=== PATIENT | male | born 1945 | race Caucasian/White ===

== ENCOUNTER 2017-10-03 15:14 | Inpatient (IN) | payer MEDICARE, MEDICAID, SELFPAY ==
--- NOTE | 2017-10-03 14:58 | PHARADMIT ---
Addendum entered by Manjit Kim III 11/06/17 11:17: VS-OK No changes CM note that patient is set to be discharged on Friday. Original Note: Addendum entered by Manjit Kim III 11/05/17 08:53: Having jailhome specialist today. VS-OK FSBS- 120 No Changes Plan is for discharge to jail if he agrees to do stairs Original Note: Addendum entered by Edilma Martinez 11/04/17 15:23: VS ok, FSBS 94 No med changes today, ambulating discharge planned to adult jail in the next 1-2 weeks dependent on renovations, meeting at the end of the week w/coordinator of this home Original Note: Addendum entered by Vane Austin 11/03/17 10:17: HR-55 other VS-okay FSBG-113 no med changes waiting to go to jail Original Note: Addendum entered by Manjit Kim III 11/02/17 09:57: vs-ok fsbs-101 nO CHANGES Original Note: Addendum entered by Manjit Kim III 11/01/17 10:35: VS-OK FSBS-100 Last 10/29 No Chnages Original Note: Addendum entered by Manjit Kim III 10/31/17 10:44: BP-up 153/85 FSBS-121 Patient has been accepted at [facility] home in 2 weeks, (renovating) Original Note: Addendum entered by Vane Austin 10/30/17 10:53: VS-okay FSBG-126 no med changes Original Note: Addendum entered by Manjit Kim III 10/29/17 12:15: VS-OK no change Original Note: Addendum entered by Manjit Kim III 10/28/17 11:27: VS-OK FSBS-129 CM working towards future discharge. Original Note: Addendum entered by Manjit Kim III 10/24/17 09:33: VS-OK No Labs, no med changes Awaiting approval of [facility]. Possible discharge on Friday Original Note: Addendum entered by Edilma Martinez 10/23/17 16:59: Visit with home in [place] went well, awaiting feedback from facility Kinta level 0.48 which is desirable according to for his age Anticipate discharge soon Original Note: Addendum entered by Makenzie Elizondo 10/22/17 15:33: Nothing new per report plan for visit today to adult home care facility from 10-3 Original Note: Addendum entered by Manjit Kim III 10/21/17 10:41: Pharmacy Note Subjective [facility] here today to meet with Patient. CM working towarad discharge. Objective VS-OK no labs Last BM recorded 10/17 Assessment On Kinta (0.43 last level 10/13) Plan ok with Kinta level slightly below therapeutic before discharge as patient tends to get toxic quickly Original Note: Addendum entered by Manjit Kim III 10/20/17 10:05: Pharmacy Note Subjective Better behavior over night. Objective VS-OK No Labs FSBS-138 Assessment No changes Plan No new notes Original Note: Addendum entered by Edilma Martinez 10/19/17 14:32: Pharmacy Note Subjective usually difficult behavior on the 3-11 shift Objective VS ok, FSBS 131 Assessment appropriate this morning no med changes Plan Private home interview this coming week for placement Original Note: Addendum entered by Manjit Kim III 10/17/17 12:26: Pharmacy Note Subjective Patient refused medications last night. Objective VS-OK FSBS-126 Had BM Assessment MD/provider to address medication refusal issue Plan CM working on placement Original Note: Addendum entered by Manjit Kim III 10/16/17 12:03: Pharmacy Note Subjective Patient to go to [facility]vt home [facility] on Friday next week. Objective VS-OK FSBS-139 No Labs Assessment No changes Plan Possible discharge late next week pending outcome of pvt home visit Original Note: Addendum entered by Manjit Kim III 10/15/17 11:39: Pharmacy Note Subjective Patient expressed rude behavior towards staff, addresses by CM, patient has apologized. Psych consult completed Objective VS-OK no labs Reg BMs Assessment Kinta continues, Plan CM working on placement Original Note: Addendum entered by Vane Austin 10/14/17 10:31: Pharmacy Note Subjective Objective VS-okay lithium-0.43 BUN-40 BG-143 SCr-1.26 Assessment lithium trough considered subtherapeutic, but MD okay with this level given the pt's age and issues with toxicity in the past Plan continue current lithium dose, increase lamotrigine from 25 mg to 50 mg daily on 10/18/17 Original Note: Addendum entered by Makenzie Elizondo 10/13/17 11:22: Pharmacy Note Subjective pt broke bed last night Objective vs ok, Assessment lithium level so far has not been reordered Plan nursing may ask for another psychiatric consultation Original Note: Addendum entered by Vane Austin 10/12/17 08:41: no VS or labs this morning day 2 out of 5 of fluconazole lithium level was cancelled. will check to see if MD wants to reorder (if pt willing to have labs drawn as he has been refusing) Monitor EKG changes when possible Original Note: Addendum entered by Edilma Martinez 10/11/17 14:40: Pharmacy Note Subjective Objective VS good, labs pending ?!? QTC this mornin Assessment Fluconazole 150mg added daily X 5 DAYS for very severe open and bleeding fungal infection that cream and powder have not helped alleviate There is potential for QTC interval prolongation with this added med, aware (Kinta) Plan Kinta level pending, ? not sure lab was able to get a blood draw Monitor EKG changes when possible Original Note: Addendum entered by Vane Austin 10/10/17 09:39: Pharmacy Note Subjective pt met with a potential adult family this week per CM note Objective VS-okay, pt refused labs this morning Assessment MD wanted lithium level after 6th dose (which is tomorrow morning) so level is scheduled for 0730 quetiapine discontinued ekg done on 10/07/17, QTc 474 (down from 08/08/17) Plan watch for lithium level tomorrow morning Original Note: Addendum entered by Makenize Elizondo 10/09/17 16:44: Pharmacy Note Subjective swingbed for altered mental status Objective vs ok, FS 138 Assessment Kinta started, mulvit and folic acid started Plan lithium trough level to be ordered after 5 days of therapy, psychiatrist stated may be well maintained on subtherapeutic levels If he stays [facility], watch for Lamictal dose increase MD mentions repeating EKG (last one was 08/08/17) Original Note: Addendum entered by Edilma Martinez 10/07/17 16:29: Pharmacy Note Subjective RN reports vomiting overnight Objective VS ok, no labs Assessment Glipizide dc'd and changing to Januvia 50mg daily (reduced dose for borderline CrCl~50ml/min) Seroquel changed from Qam to QHS Lamictal titration upwards is a slow process (every 2 weeks adjustments-started 10/04/17) will do some research about his Psychiatric background and IF Kinta is the only medication that helped him in the past, he may need to go back on it, regardless of QTc interval Sinemet was started 10/05/17 in the evening, watch for signs of improvement 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, watch for Lamictal dose increase MD mentions repeating EKG (last one was 08/08/17) Original Note: Addendum entered by Edilma Martinez 10/05/17 14:25: Pharmacy Note Subjective Ambulates independently w/walker, is Swingbed patient Objective VS good, FSBS 157,116 Micro: MRSA negative Assessment MD was giving Lamictal a few days to take effect before starting any new meds Plan MD mentions starting Sinemet as recommended by Neurology, no new med orders at this time Placement options being researched Original Note: Pharmacy Note Subjective SWINGBED TRANSFER 10/03/17 Objective Last QTC was 510 on 08/08/17, VS ok, no labs, FSBS 135,159 Assessment Addition of Lamictal starting tomorrow in place of Kinta with history of elevated QTC No insulin changes Neurology consult: ruled out any hydrocephalus diagnosis, mostly memory impairment associated with possible Alzheimer's dementia and some Parkinsonian features with some suggestions of possible new meds (ie: Sinemet) to help w/gait, History of bipolar as well Plan Search for new alf facility Admission Pharmacy Clinical Review altered mental status, weakness Code Status Full Code Current Weight 129.8 kg Renally Cleared and Narrow Therapeutic Index Meds Crcl ~51.00 mL/min current meds okay QTc Value / Action Taken QTc 510 pt has quetiapine and solifenacin ordered; has lithium listed as home med but not currently ordered BP Control, Fever BP 141/85 afebrile Electrolytes reviewed within normal limits DVT Prophylaxis none Opiate Usage / Scheduled Bowel Regimen Ordered no/prn Plt/SCr for Heparin / Enoxaparin plt 234 SCr 1.37 INR for Warfarin n/a H/H stable, WBC/Bands h/h 14.0/45.2 wbc 11.49 Antibiotic appropriateness n/a Cultures and Sensitivities MRSA screen pending Surgical ABX d/c within 24 hr n/a DM control / Insulin Dosing BG 146 sliding scale insulin aspart Heart Failure (Check EF%) (TADEO's, B-Block, Diuretics) furosemide (home med), metolprolol IV to PO Switch n/a Home Meds Reviewed -quetiapine and solifenacin may enhance the ulcerogenic effects of potassium chloride (recommended to avoid use of solid oral potassium with anticholinergic drugs) -multiple QTc prolonging drugs: quetiapine, lithium, solifenacin Home Meds Not Ordered cholecalciferol, furosemide, lithium, potassium chloride Comments
[2017-10-03 15:38] VITALS: BP 125/80; PULSE 74; RESP 18; TEMP 36; O2SAT 97
--- NOTE | 2017-10-03 15:47 | IESE_ITS ---
Date: 10/03/17 Referring Doctor: Torin Arriaga PT Orders: PT Consult: Precautions: Fall Precautions PATIENT PROFILE/ADMITTING DIAGNOSIS: Pt is a 72yr old male admitted with generalized weakness, gait instability and urinary incontinence, transferred to SWING bed program for rehab PMHX: Schizophrenia, Bipolar Disorder, right basal ganglia lacunar infarct, chronic kidney disease, diabetes mellitus type II, obesity, chronic obstructive pulmonary disease, peripheral vascular disease, osteoarthritis, hypertension, prostate cancer Social History/Home Situation: Lives in a a private jail with Haylie Arana , 1 step to enter. Per chart caregiver states she can no longer care for him at home. Per patient his baseline mobility is independent transfers and gait with 4WW, independent with ADLS. Equipment owned/DME: 4WW SUBJECTIVE: Pt falling asleep in chair, agreeable to mobilize. OBJECTIVE: Mental Status: A& O to name, place, situation Pain: no c/o pain ROM: RUE: AROM shoulder flexion to 90, elbow and wrist WNL LUE AROM shoulder flexion to 90, elbow and wrist WNL RLE AROM hip flexion to 110, knee and ankle WNL LLE AROM hip flexion to 110, knee and ankle WNL STRENGTH: RUE: shoulder flexion 2/5, bicep 4/5, framing mill operator helper 5/5 LUE shoulder flexion 2/5, bicep 4/5, framing mill operator helper 5/5 RLE hip flexion 3/5, quad 4/5 DF/PF 5/5 LLE hip flexion 3/5, quad 4/5 DF/PF 5/5 BED MOBILITY/TRANSFERS: Sit-stand: SBA with FWW, cues to sequence chair-beD: SBA with FWW Stand-sit: SBA Sit-supine: HOB flat, SBA GAIT: CGA with FWW 20ftx2. Pt too tired to progress gait this afternoon. BALANCE: Static sitting: normal Dynamic Sitting: normal Static Standing: fair Dynamic Standing: fair SPECIAL TESTS: Mobility Limitations Standardized Measure [facility] AM -PAC 6 clicks Basic Mobility Inpatient Short Form: raw score: 18 standardized score: 43.63 CMS score: 46.58% CMS modifier: CK INFORMED CONSENT/EDUCATION: Pt instructed in purpose of PT Consult and plan of care ASSESSMENT: Pt is a 72yr old male admitted with generalized weakness, gait instability and urinary incontinence in setting of Schizophrenia, Bipolar Disorder, right basal ganglia lacunar infarct, chronic kidney disease, diabetes mellitus type II, obesity, chronic obstructive pulmonary disease, peripheral vascular disease, osteoarthritis. Patient presents with the following impairment level findings: decreased strength with transfers, decreased strength and balance with gait mobility, decreased static and dynamic standing balance putting him at risk for falls. Pt was able to follow all instructions and actively participate in therapy session. Anticipate he will need a intermediate care facility or [facility] supervision at discharge.. Impairments are contributing to the following functional limitations: AMPAC score CMS score: 46.58% Patient is assessed as a * high 29110 complexity based on the following: History: generalized weakness, gait instability and urinary incontinence in setting of Schizophrenia, Bipolar Disorder, right basal ganglia lacunar infarct , chronic kidney disease, diabetes mellitus type II, obesity, chronic obstructive pulmonary disease, peripheral vascular disease, osteoarthritis. Examination: decreased strength with transfers, decreased strength and balance with gait mobility, decreased static and dynamic standing balance putting him at risk for falls. Presentation: evolving Decision Making: AMPAC score CMS score: 46.58% GOALS Goals x1 week 1. Supine-sit: HOB flat, independent 2. Sit-Supine HOB flat, independent 3. Sit-Stand: SBA with FWW 4. Stand-sit: supervision 5. Bed-chair supervision with FWW 6. Chair-bed supervision with FWW 7. Gait: SBA with FWW 150ft 8. Stairs: up/down 2 steps with railing SBA PLAN OF CARE/TREATMENT PLAN: 1-2x/day, 7 days/ week x 1 week Plan of care has been reviewed with the PARTITION NOTCHER providing the service under Physical therapy direction. Initiate physical therapy intervention for strengthening, bed mobility, transfers, gait, stairs, balance training, use of assistive device. DISCHARGE RECOMMENDATIONS [facility] facility vs. return to home with caregiver TREATMENT TIME/MINUTES/CODES 24 IE 1530 Evelyn Dey PT
--- NOTE | 2017-10-03 15:58 | NUR.NOTE ---
Admission to swing bed from acute status. Nursing Note:
[2017-10-03 20:08] VITALS: BP 152/90; PULSE 74; RESP 74; TEMP 36.6; O2SAT 97
[2017-10-03] MEDS: Metoprolol 25 MG TAB PO (21:00)
[2017-10-03] MEDS: Nystatin CREAM 15 GM TUBE TP (21:01)
[2017-10-03] MEDS: Melatonin 3 MG TAB 6 MG PO (21:27)
[2017-10-03] MEDS: Simvastatin 20 MG TAB PO (21:27)
[2017-10-04 00:50] VITALS: BP 124/66; PULSE 66; RESP 18; TEMP 37.1; O2SAT 97
[2017-10-04 06:50] VITALS: BP 135/76; PULSE 73; RESP 20; TEMP 36.7; O2SAT 100
--- NOTE | 2017-10-04 07:21 | PDOC.CMPRO ---
Date of Service: 10/04/17 Time of Service: 07:21 Care Management Progress Note Care Management Progress Note S/O: Pritesh is in the room and active today. He met with his CC yesterday and reviewed options for placement. [facility] is currently looking for adult care bed. A:72 year old male admitted for AMS and weakness plan to transition to SB1 on 10/03/2017 P:CM to continue Coordination with Sal[facility]ers Water Plant Pump Operator Supervisor cell number [phone] Office is [phone]. She is actively looking for adult care bed. CM will continue to coordinate services with CC toward discharge and disposition.
[2017-10-04] MEDS: Senna TAB 1 TAB PO (09:27)
[2017-10-04] MEDS: Metoprolol 25 MG TAB PO ×2 (09:27→19:37)
[2017-10-04] MEDS: QUEtiapine 25 MG TAB PO (09:28)
[2017-10-04] MEDS: Nystatin CREAM 15 GM TUBE TP ×2 (09:29→19:37)
[2017-10-04] MEDS: Aspirin E.C. 81 MG TABEC PO (09:29)
[2017-10-04] MEDS: lamoTRIgine 25 MG TAB PO (09:29)
--- NOTE | 2017-10-04 11:51 | HPE_ITS ---
Discharge from Observation: October 01, 2017 Admission to Swing: October 03, 2017 Chief Complaint: Change in mental status. Plan: His chronic kidney disease will be monitored with intermittent lab work. He will be continued on physical therapy and occupational therapy to assess and meet his needs. For now, he is being transitioned to Swing Bed status. History of Present Illness: This is a 72-year-old man with a past medical history significant for dementia and bipolar disorder, as well as diabetes and COPD. He presented to [facility] for evaluation of the above chief complaints. Mr. West lives in a private-snf with his caregiver, Haylie Arana, who brought him to the Emergency Dept. for evaluation per recommendation from his primary care office. Initial complaints were for increased weakness and poor ambulation with frequent falls, frequent urinary incontinence, and worsening behavioral changes, with frequent outbursts of anger and uncontrollable behavior. Mr. West also has a porter sample case who is currently attempting to find alternative living arrangements for him as he is no longer able to be cared for at home, according to his caregiver. The patient was admitted to the hospital and monitored without any significant events or occurrences. Given the fact that he was noted to have possible ventriculomegaly on the read of his brain CT, Neurology was consulted to evaluate for the possibility of normal-pressure hydrocephalus. It was deemed that the patient did not have enough evidence by imaging for normal-pressure hydrocephalus. The recommendation was for checking his B12 and TSH, in addition to the rest of his lab work already checked. There was also concern regarding some Parkinsonian features on examination, with mild bradykinesia and a shuffling gait, along with a resting upper-extremity tremor. The recommendation was also for possible consideration of a trial of Sinemet. Other differentials were also considered for the patient's change in mental status, including infectious process, which was less likely given his normal urinalysis, chest x-ray, and lack of fever, although with a mild leukocytosis. The patient is diabetic, but his blood sugar did not seem to be grossly elevated. He was not noted to be hypoxic, and did not seem to have any pulmonary signs or symptoms on imaging or clinically, and he did not appear to be uremic by labs. He was mildly dehydrated, but this was not an overtly strong indication for his change in mental status. He also is on psychiatric medications, but has been on these chronically. He is also without evidence of CVA by CT of the head, or evidence of a space-occupying lesion within the brain by the same imaging. The patient's TSH and B12 are pending at this time. NPH was ruled out by Neurology, as well. Will consider the addition of Sinemet and re-evaluate the patient. As far as Mr. West's bipolar disorder, his [place] was discontinued as he has a history of [place] toxicity. His levels came back normal, but, at the time of reinitiation, it was noted that he had a prolonged QT. For the time-being, Lamictal is being initiated and needs to be up-titrated. Past Medical History: 1. Hypertension. 2. COPD. 3. Dementia. 4. Bipolar disorder. 5. Schizophrenia. 6. Osteoarthritis. 7. Prostate cancer. 8. Diabetes. Medications: 1. Albuterol 2.5mg q2h prn. 2. Acetaminophen 650mg q6h prn. 3. MiraLax 17 grams daily prn. 4. Bisacodyl 10mg daily prn. 5. Eucerin cream. 6. Glycerin suppositories prn. 7. Phosphate enema prn. 8. Nystatin cream prn. 9. Metoprolol 25mg BID. 10. Melatonin 6mg qHS. 11. Zocor 20mg qHS. 12. Glipizide 2.5mg daily. 13. Vitamin D. 14. Lamotrigine 25mg daily. 15. Aspirin 81mg daily. 16. Senna, one tablet daily. 17. Seroquel 25mg daily. Allergies: DILTIAZEM. TETANUS TOXOID. Laboratory Data: WBC 11.49. H/H normal. 75 segs, 13 lymphocytes, 8 monocytes on differential. Sodium 132. Potassium 3.9. Chloride 107. Bicarb 28.9. BUN 37, creatinine 1.37. Glucose 146. Liver function tests were normal at the time of admission, as were albumin and total protein. Troponin was checked and undetectable at less than 0.02. [place] level was checked and well within normal limits at 0.74. Urinalysis was checked and negative for infection or blood. Studies: 1. Chest x-ray on 10/01/2017: No acute abnormalities. 2. Head CT on 10/01/2017: Old bilateral basal ganglia lacunar infarct; no acute abnormalities seen. cc: Padmini Galindo SYSTEMS ARCHITECTURE ANALYST
--- NOTE | 2017-10-04 12:28 | INPTTR_ITS ---
PHYSICAL THERAPY PROGRESS NOTE Date:10/04/17 PRECAUTIONS:Fall Precaution SUBJECTIVE: Pt.in good spirits and agreeable to treatment. BED MOBILITY/TRANSFERS Rolling L/R: HOB 28 degrees supervision Supine-sit: HOB flat supervision Sit-stand: Supervision Stand-sit: SBA GAIT Assistive Device FWW Weightbearing FWB Assist: CGA Distance: 100'x1 Deviation No LOB/SOB THEREX: please refer to chart ASSESSMENT: Pt. is showing increase in strenght and stability with gait. PLAN: Continue with PT POC. TREATMENT CODES/TIME: 30mins TAx1, TPx1 11:55
[2017-10-04 15:30] VITALS: BP 115/67; PULSE 71; RESP 22; TEMP 36.7; O2SAT 95
[2017-10-04 19:31] VITALS: BP 117/73; PULSE 76; RESP 16; TEMP 36.2; O2SAT 97
[2017-10-04] MEDS: Simvastatin 20 MG TAB PO (21:27)
[2017-10-04] MEDS: Melatonin 3 MG TAB 6 MG PO (21:27)
[2017-10-04 23:35] VITALS: BP 131/80; PULSE 62; RESP 17; TEMP 36.2; O2SAT 97
[2017-10-05 07:35] VITALS: BP 124/59; PULSE 64; RESP 18; TEMP 35.9; O2SAT 94
[2017-10-05] MEDS: Aspirin E.C. 81 MG TABEC PO (07:48)
[2017-10-05] MEDS: Metoprolol 25 MG TAB PO ×2 (07:48→20:49)
[2017-10-05] MEDS: lamoTRIgine 25 MG TAB PO (07:48)
[2017-10-05] MEDS: QUEtiapine 25 MG TAB PO (07:48)
[2017-10-05] MEDS: Nystatin CREAM 15 GM TUBE TP (07:49)
--- NOTE | 2017-10-05 11:51 | INPTTR_ITS ---
PHYSICAL THERAPY PROGRESS NOTE Date: 10/05/17 SUBJECTIVE: Pritesh reports that he is ready to walk. OBJECTIVE BED MOBILITY/TRANSFERS Sit-stand: SBA Stand-sit: SBA GAIT Assistive Device FWW Weightbearing full Assist: CGA Distance: 120' THEREX: global LE strengthening. See flowsheet for details. ASSESSMENT: tolerated session well. Had a hard time staying focused during session. Cues required to redirect him. PLAN: continue to progress his strength and endurance following PT POC. TREATMENT CODES/TIME: 18 min. TAx1.
[2017-10-05 15:20] VITALS: BP 135/83; PULSE 68; RESP 22; TEMP 37; O2SAT 97
[2017-10-05 18:04] LABS: TSH 0.33 uIU/mL (0.358-3.74); Vitamin B12 541 pg/mL (193-986)
[2017-10-05] MEDS: Simvastatin 20 MG TAB PO (20:49)
[2017-10-05] MEDS: Melatonin 3 MG TAB 6 MG PO (20:49)
[2017-10-05] MEDS: Carbidopa 25/Levodopa 100 TAB PO (20:49)
[2017-10-05 21:12] VITALS: BP 141/69; PULSE 65; RESP 17; TEMP 36.7; O2SAT 96
[2017-10-06 04:24] VITALS: BP 121/70; PULSE 61; RESP 20; TEMP 35.5; O2SAT 97
--- NOTE | 2017-10-06 06:00 | NUR.NOTE ---
Nursing Note: behaviour assessment 11pm-7am--pt has slept most of night ,woke up once and was encouraged to walk to bathroom and voided in toilet ,pt wears brief and has been continenet this shift. Pt's behaviour has been appropriate towards staff.
[2017-10-06 07:05] VITALS: BP 162/73; PULSE 60; RESP 18; TEMP 35.9; O2SAT 93
[2017-10-06] MEDS: Metoprolol 25 MG TAB PO ×2 (08:40→20:57)
[2017-10-06] MEDS: Senna TAB 1 TAB PO (08:40)
[2017-10-06] MEDS: Aspirin E.C. 81 MG TABEC PO (08:40)
[2017-10-06] MEDS: Carbidopa 25/Levodopa 100 TAB PO ×2 (08:41→20:57)
[2017-10-06] MEDS: QUEtiapine 25 MG TAB PO (08:41)
[2017-10-06] MEDS: lamoTRIgine 25 MG TAB PO (08:41)
--- NOTE | 2017-10-06 11:38 | OTSE_ITS ---
INPATIENT OCCUPATIONAL THERAPY EVALUATION Date: 10/06/17 Referring Doctor: Torin Arriaga OT Orders: OT Consult: Precautions: Fall Precautions PATIENT PROFILE/ADMITTING DIAGNOSIS: Pt is a 72yr old male admitted with generalized weakness, gait instability and urinary incontinence, transferred to SWING bed program for rehab PMHX: Schizophrenia, Bipolar Disorder, right basal ganglia lacunar infarct, chronic kidney disease, diabetes mellitus type II, obesity, chronic obstructive pulmonary disease, peripheral vascular disease, osteoarthritis, hypertension and prostate cancer Social History/Home Situation: Lives in a a private senior care with Haylie Arana , 1 step to enter. Per chart caregiver states she can no longer care for him at home. Per patient his baseline mobility is independent transfers and gait with 4WW, independent with ADLS. Equipment owned/DME: 4WW SUBJECTIVE: Pt awake and agreeable. OBJECTIVE: Mental Status: A& O to name, place. Pain: no c/o pain ROM: RUE: AROM shoulder flexion to 100, elbow and wrist WNL LUE AROM shoulder flexion to 110, elbow and wrist WNL STRENGTH: RUE: shoulder flexion 3/5, bicep 4/5, consulting practice director 5/5 LUE shoulder flexion 3/5, bicep 4/5, consulting practice director 5/5 FUNCTIONAL MOBILITY/ADLS: Transfers Sit-Stand S Stand-sit S Functional mobility: SBA 2 X 75 feet with FWW. BATHING Seated/ standing in shower. Bathing UE S with v/cs for thoroughness. Bathing LE SBA to stand. v/cs for thoroughness. DRESSING Dressing UE I post setup. Dressing LE S to stand to pull pants over hips. TOILETING SBa transfer. S to stand for management. EATING I BALANCE: Static sitting N Dynamic Sitting N Static Standing F Dynamic Standing F SPECIAL TESTS: Daily Activity Limitations Standardized Measure [facility] AM -PAC 6 clicks Daily Activity Inpatient Short Form: Raw score: 20 standardized score: 42.03 CMS score: 38.32% [facility] modifier: CJ INFORMED CONSENT/EDUCATION: Pt instructed in purpose of OT Consult and plan of care. ASSESSMENT: Patient is a 72 -year-old male, referred to occupational therapy services with diagnosis of generalized weakness, gait instability and urinary incontinence, . Patient presents with clinical signs and symptoms consistent with diagnosis, as demonstrated by the following impairment level findings: Weakness, decreased standing balance and decreased tolerance to activity. Impairments are contributing to the following functional limitations: Decreased I with ADLS and functional mobility. AMPAC score 20 . Patient is assessed as a Low 97161___x__ Moderate 97162 high 97163 complexity based on the following: History: Generalized weakness, gait instability and urinarySchizophrenia, Bipolar Disorder, right basal ganglia lacunar infarct, chronic kidney disease, diabetes mellitus type II, obesity, chronic obstructive pulmonary disease, peripheral vascular disease, osteoarthritis, hypertension and prostate cancer Examination: See sona. Presentation: evolving Decision Making: ampace 20 GOALS Goals x1 week 1. Transfers I in hospital setting for adls. 2. Dressing I in hospital setting. 3. Bathing S with v/cs for thoroughness only. 4. Toileting I in hospital setting. PLAN OF CARE/TREATMENT PLAN: 1x/day,3- 5 days/ week x 1week Initiate Occupational Therapy Services for bathing, dressing, grooming, toileting, transfer training. DISCHARGE RECOMMENDATIONS LTC rehab. TREATMENT TIME/MINUTES/CODES 60 mins 1 IE 2 sct G Codes in the area of self- : washing oneself, toileting, dressing, eating and drinking, current status [id number] projected status GP [id number] . Discharge status (if discharging) GP [id number]
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
--- NOTE | 2017-10-06 15:17 | INPTTR_ITS ---
PHYSICAL THERAPY PROGRESS NOTE Date: 10/06/17 PRECAUTIONS: Fall Precautions SUBJECTIVE: Pt sleeping in the bed, arousable to verbal stimulus of name, agreeable to PT treatment but appeared sleepy. RN Anders in room for session. OBJECTIVE: PAIN: no c/o pain BED MOBILITY/TRANSFERS: Supine-sit: HOB 40 degrees SBA- pt had difficulty getting himself to sitting position requiring head of bed to be elevated to assist to sitting. Pt required several minutes to scoot to edge of bed to get feet to floor, required Pili x therapist to get to fully seated position to stand. Sit-stand: CGA with FWW, cues to sequence. Upon standing pt wanting to put his pants on that were sitting on bedside table, pt insistent on putting pants on and became agitated yelling I want to put my pants on, they are mine!. RN assisted patient to bathroom for toileting and change of pants. Bed-chair SBA with FWW Stand-sit: SBA GAIT: 15ftx2 in room with FWW SBA. Further gait witheld this afternoon due to patient agitation. Pt left up in chair with fall alarm activated. BALANCE: Static sitting: normal Dynamic Sitting: normal Static Standing: fair Dynamic Standing: fair ASSESSMENT: Treatment limited this afternoon due to patient being tired and agitated with his pants. Will continue to progress mobility as able. PLAN: Progress gait Progress transfers TREATMENT CODES/TIME: 10min TA x1 1515 Evelyn Dey PT
[2017-10-06 15:35] VITALS: BP 163/93; PULSE 71; RESP 20; TEMP 36.4; O2SAT 98
--- NOTE | 2017-10-06 16:26 | PDOC.CMPRO ---
Date of Service: 10/06/17 Time of Service: 16:26 Care Management Progress Note S/O: Patient is in room with walker he is receiving PT and OT. He is having increased moments of agitation today. Pritesh has psychiatric consult today. LUCILA contacted [facility] [phone] Adult services CC today. Potential placement home she is planning a visit this week with patient she is unsure of day. Pt continues to await placement. A:72 year old male admitted for AMS and weakness plan to transition to SB1 on 10/03/2017 P:CM to continue Coordination with [facility] [employer] Operator cell number [phone] Office is [phone]. She is actively looking for adult care bed. CM will continue to coordinate services with CC toward discharge and disposition.
--- NOTE | 2017-10-06 16:38 | CMPROGNOTE_ITS ---
Date of Service: 10/06/17 Time of Service: 16:26 Care Management Progress Note S/O: Patient is in room with walker he is receiving PT and OT. He is having increased moments of agitation today. Pritesh has psychiatric consult today. LUCILA contacted [facility] [phone] Adult services CC today. Potential placement home she is planning a visit this week with patient she is unsure of day. Pt continues to await placement. A:72 year old male admitted for AMS and weakness plan to transition to SB1 on 10/03/2017 P:CM to continue Coordination with [facility] P[employer] Box Tender cell number [phone] Office is [phone]. She is actively looking for adult care bed. CM will continue to coordinate services with CC toward discharge and disposition.
[2017-10-06] MEDS: Melatonin 3 MG TAB 6 MG PO (20:57)
[2017-10-06] MEDS: Simvastatin 20 MG TAB PO (20:57)
[2017-10-06 21:07] VITALS: BP 120/76; PULSE 84; RESP 18; TEMP 36.6; O2SAT 95
[2017-10-06 23:30] VITALS: BP 113/70; PULSE 73; RESP 19; TEMP 36.2; O2SAT 94
[2017-10-07 06:57] VITALS: BP 156/97; PULSE 86; RESP 20; TEMP 36.8; O2SAT 95
[2017-10-07] MEDS: Aspirin E.C. 81 MG TABEC PO (07:55)
[2017-10-07] MEDS: Senna TAB 1 TAB PO (07:55)
[2017-10-07] MEDS: lamoTRIgine 25 MG TAB PO (07:55)
[2017-10-07] MEDS: Carbidopa 25/Levodopa 100 TAB PO ×3 (07:55→19:39)
[2017-10-07] MEDS: Metoprolol 25 MG TAB PO ×2 (07:55→19:38)
[2017-10-07] MEDS: QUEtiapine 25 MG TAB PO ×2 (07:55→19:39)
--- NOTE | 2017-10-07 11:16 | NT_ITS ---
PHYSICAL THERAPY NOTE 10/07/17 Attempted to see patient for PT treatment, pt sleeping soundly. RN recommended trying to see patient after lunch. Evelyn Dey PT
--- NOTE | 2017-10-07 14:50 | INPTTR_ITS ---
PHYSICAL THERAPY PROGRESS NOTE Date: 10/07/17 PRECAUTIONS: Fall Precautions SUBJECTIVE: Pt up in chair, agreeable to PT session stating he would like to walk. RN Anders in room at beginning of session to assist. OBJECTIVE: PAIN: no c/o pain BED MOBILITY/TRANSFERS: Sit-stand: SBA with FWW Stand-sit: SBA GAIT: 100ft with FWW, SBA - 1 sit rest 5min 120ft with FWW, SBA - 1 sit rest 2min 30ft with FWW SBA Pt with flexed posture, flexed hips, knees and back leaning over walker. Step through gait pattern, steady raheem. Pt becomes short of breath with gait requiring sitting rest break for recovery. Pt likes to talk throughout session requiring therapist to redirect patient back to activity. Pt returned to room after session completed and left up in chair with fall precaution alarm activated. BALANCE: Static sitting: normal Dynamic Sitting: normal Static Standing: fair Dynamic Standing: fair ASSESSMENT: Pt more cooperative today, able to participate in therapy session and progress gait training in hallways. Pt presents with generalized weakness due to immobility, would benefit from continued therapy intervention to improve strength with gait and reduce rest breaks. PLAN: Progress gait Progress transfers TREATMENT CODES/TIME: 23min TA x2 1440 Evelyn Dey PT
[2017-10-07 15:10] VITALS: BP 100/63; PULSE 71; RESP 20; TEMP 36.6; O2SAT 95
--- NOTE | 2017-10-07 16:32 | PDOC.PROG ---
Date of Service: 10/07/17 Time of Service: 16:33 Assessment/Plan - Assessment/Plan (1) History of bipolar disorder Assessment: d/w Dr. Newell and Eugene Culver, will revisit meds in the AM,start Li if Dr. Newell and pt agree with tx plan, and repeat EKG has better QTc (2) Parkinsonism Assessment: nurses report he has had some modest benefit in his gait after starting sinemet (3) Dementia Assessment: can start aricept, will d/w psych History of Present Illness - History of Present Illness Chief Complaint: none History of Present Illness: no specific c/o, very afraid of starting lithium due to toxicity Review of Systems - Review of Systems Constitutional: denies: Fever Respiratory: denies: Cough Cardiovascular: denies: Chest Pain Gastrointestinal: denies: Nausea, Vomiting - Medications/Allergies Allergies/Adverse Reactions: Allergies Allergy/AdvReac Type Severity Reaction Status Date / Time diltiazem Allergy Unknown Unverified 10/01/17 15:00 tetanus toxoid, adsorbed Allergy Unknown Unverified 10/01/17 15:00 Medications: Current Medications Acetaminophen (Tylenol) 650 mg PO Q6H PRN PRN Al Hydrox/Mg Hydrox/Simethicone (Mylanta Liquid) 30 ml PO Q2H PRN PRN Albuterol Sulfate (Proventil Updraft) 2.5 mg UPD Q2H PRN PRN Aspirin (Ecotrin) 81 mg PO DAILY [facility] Last Admin: 10/07/17 07:55 Dose: 81 mg Bisacodyl (Dulcolax Suppository) 10 mg ND DAILY PRN PRN PRN Reason: Constipation Carbidopa/Levodopa (Sinemet-25/100 Tablet) 1 tab PO TID [facility] Last Admin: 10/07/17 15:56 Dose: 1 tab Cholecalciferol (Vitamin D) 2,000 units PO DAILY [facility] Last Admin: 10/07/17 07:55 Dose: 2,000 units Dextrose (Insta-Glucose) 0 gm PO DIRECTED PRN Dextrose/Water () 0 gm IVP DIRECTED PRN Dimethicone/Zinc Oxide (Tiffanie Protect Cream) 0 gm TP PRN PRN Docusate Sodium (Colace) 100 mg PO TID PRN PRN Glycerin () 1 supp ND DAILY PRN PRN PRN Reason: Constipation Lamotrigine (Lamictal) 25 mg PO DAILY [facility] Last Admin: 10/07/17 07:55 Dose: 25 mg Magnesium Hydroxide (Milk Of Magnesia) 30 ml PO DAILY PRN PRN Melatonin () 6 mg PO HS [facility] Last Admin: 10/06/17 20:57 Dose: 6 mg Metoprolol Tartrate (Lopressor) 25 mg PO BID [facility] Last Admin: 10/07/17 07:55 Dose: 25 mg Nystatin (Mycostatin Cream) 0 gm TP BID [facility] Last Admin: 10/07/17 07:55 Dose: Not Given Polyethylene Glycol (Miralax) 17 gm PO DAILY PRN PRN PRN Reason: Constipation Quetiapine Fumarate (Seroquel) 25 mg PO QPM [facility] Sennosides (Senokot) 1 tab PO DAILY [facility] Last Admin: 10/07/17 07:55 Dose: 1 tab Simvastatin (Zocor) 20 mg PO HS [facility] Last Admin: 10/06/17 20:57 Dose: 20 mg Sitagliptin Phosphate (Januvia) 50 mg PO DAILY [facility] Sodium Biphosphate/Sodium Phosphate (Fleet Enema) 133 ml ND .EVERY 3 DAYS PRN PRN PRN Reason: Constipation White Petrol/Mineral Oil/Lanolin (Eucerin Creme) 0 gm TP PRN PRN Objective - Exam Vitals and I&O: Vital Signs Temp 36.6 C 10/07/17 15:10 Pulse 71 10/07/17 15:10 Resp 20 10/07/17 15:10 BP 100/63 10/07/17 15:10 Pulse Ox 95 10/07/17 15:10 Intake & Output 10/06/17 10/07/17 10/07/17 23:59 11:59 23:59 Intake Total 1080 410 Output Total 750 Balance 330 410 Intake: Oral 1080 410 Output: Urine 750 Other: Urine Color Yellow Light Gina Urine Appearance Clear Clear Urine Odor Foul Voiding Methods Toilet Diaper Incontinent General: Alert, Oriented x3, Cooperative, No acute distress Lungs: Clear to auscultation Cardiovascular: Regular rate Abdomen: Soft - Results Results: Laboratory Results Vitamin B12 541 pg/mL ([id number]) 10/05/17 17:00 TSH 0.33 uIU/mL (0.358-3.74) L 10/05/17 17:00
--- NOTE | 2017-10-07 18:02 | NUR.NOTE ---
Patient was being inappropriate towards a female staff member and asking to see her because this patient was interested in this female staff member. This nurse told patient that was inappropriate and that the female staff member would not be coming in his room. Patient became angry and told this nurse to get out of his sight and leave him alone. Bed alarms were placed on bed, call light within reach and curtain pulled so the patient cannot see the female staff member. Nursing Note:
[2017-10-07 19:34] VITALS: BP 127/81; PULSE 80; RESP 74; TEMP 36.4; O2SAT 96
[2017-10-07] MEDS: Simvastatin 20 MG TAB PO (19:38)
[2017-10-07] MEDS: Melatonin 3 MG TAB 6 MG PO (19:38)
[2017-10-07] MEDS: Nystatin CREAM 15 GM TUBE TP (19:39)
[2017-10-08 03:51] VITALS: BP 128/73; PULSE 74; RESP 16; TEMP 35.7; O2SAT 96
[2017-10-08 06:52] LABS: HCT 39.2 % (40.0-50.0); HGB 12.3 g/dL (13.5-17.5); Mean Corp. HGB Concentration 31.4 g/dL (32.0-36.0); Mean Corpuscular Hemoglobin 29.9 pg (27.0-33.0); Mean Corpuscular Volume 95.1 fL (80-95); Platelet Count 210 x1000/uL (130-400); RBC 4.12 m/cumm (4.50-6.00); RBC Distribution Width 13.9 % (11.8-14.1); White Blood Cell Count 7.81 k/cumm (4.4-10.8)
[2017-10-08 07:21] LABS: ALT 7 U/L (16-63); AST 11 U/L (15-37); Albumin 2.6 g/dL (3.4-5.0); Alkaline Phosphatase 71 U/L (46-116); Anion Gap 9.4 mmol/L (3-11); BUN 34 mg/dL (7-18); Bilirubin, Total 0.23 mg/dL (0.2-1.0); CO2 25.6 mmol/L (21.0-32.0); CREATININE 1.06 mg/dL (0.70-1.30); Chloride 110 mmol/L (98-107); Folate 6.2 ng/mL (8.6-20.0); Glucose 135 mg/dL (70-100); Magnesium 2.1 mg/dL (1.8-2.4); Sodium 145 mmol/L (136-145); Total Protein 6.1 g/dL (6.4-8.2)
[2017-10-08] MEDS: Metoprolol 25 MG TAB PO ×2 (08:00→19:46)
[2017-10-08] MEDS: Senna TAB 1 TAB PO (08:00)
[2017-10-08] MEDS: sitaGLIPtin 25 MG TABLET 50 MG PO (08:00)
[2017-10-08] MEDS: Carbidopa 25/Levodopa 100 TAB PO ×3 (08:00→19:44)
[2017-10-08] MEDS: Aspirin E.C. 81 MG TABEC PO (08:00)
[2017-10-08] MEDS: lamoTRIgine 25 MG TAB PO (08:00)
[2017-10-08 08:16] VITALS: BP 114/65; PULSE 70; RESP 18; TEMP 36.7; O2SAT 96
--- NOTE | 2017-10-08 09:52 | INPTTR_ITS ---
PHYSICAL THERAPY PROGRESS NOTE Date: 10/08/2017 PRECAUTIONS: Fall precautions SUBJECTIVE: Pt up sitting, agreeable to PT intervention. Pt reports no pain, but was concerned where his pants were. OBJECTIVE PAIN: no reports of pain BED MOBILITY/TRANSFERS Sit-stand: FWW, SBA Stand-sit: FWW, SBA GAIT Assistive Device: FWW Assist: CGA Distance: 150 ft Pt did not require a rest break today, but needed several verbal cues to look straight ahead to avoid loss of balance. Pt easily distracted and had trouble focusing on task. Pt back in chair with fall alarm activated. THEREX: LE: long arc quad 10 reps bilaterally, seated hip flexion 10 reps bilaterally, seated ankle pumps 10 reps bilaterally UE: elbow flexion 10 reps bilaterally, shoulder flexion 10 reps bilaterally ASSESSMENT: Pt was able to walk a longer distance without a rest break today and performed UE and LE exercises with no problems, although he reported fatigue with shoulder flexion. Pt required several verbal cues to look straight ahead when walking to avoid losing his balance. Pt would benefit from continued gait training to improve endurance and decrease risk of falling. PLAN: Progress gait training TREATMENT CODES/TIME: 23 min TAx1 TPx1 9:45 Jenna Unger SPT under direct supervision of Evelyn Dey PT
--- NOTE | 2017-10-08 09:57 | PSYCO_ITS ---
Follow Up: FOLLOW UP Psychiatry Consultation: Overnight events: Taking medications as prescribed Inappropriate behaviors with female staff members with verbal comments, got irritable with redirection provided by male nurse. Subjective: - Patient reports feeling okay today. Can't say whether movement or tremor is better or worse. Not really aware of Sin[place] starting. - Patient enjoying telling stories of playing baseball in his youth, telling me about his shock to learn his brother had and antics of he and his brother when they were young. - Patient is concerned about restarting lithium but is not specific about why, just afraid it will make him sick - patient reports not liking the home he was staying in prior to coming to hospitla - patient recounts his stay at [facility] in [facility] in which he avoided fighting with his roommate and he was sweet on a female resident across the [place]. He reports lending her his debit card in hopes of winning her affections. She went out and spent his money on drinking. When asked specifically, he still thinks lending her his debit card was a good idea. He is not able to say whether he achieved his goal of winner her affections by lending her his card. Mood: a bit bored in the hospital. Would like to read but doesn't have his reading glasses with him. REVIEW OF SYSTEMS: Constitutional: feels healthy Psych: as noted above Allergies: as noted in chart and reviewed in this visit MENTAL STATUS EXAM: Constitutional: appears in no acute distress, stated age, sitting in chair with empty breakfast dishes in front of him. Attitude: cooperative Psychomotor: no retardation or agitation Speech: slow, nonpressured, normal volume and prosody. No articulation problems noted. Associations: no looseness Thought process: slow, tangential Thought content without psychosis, delusions, obsessions No suicidal or homicidal ideations Hallucinations denied Mood: bored Affect: full, calm, euthymic Attention/Concentration: poor Judgment/insight: poor Oriented to self, place and date, the latter two he looks at information to prompt him. Initially he said the month was July but then looked at white board and self-corrected to October. Language appropriate to age and education Fund of knowledge appropriate to age and education Memory poor to recent and remote events Other cognitive testing: Able to state current president, unable to remember name of previous president whom he reports having liked. Got distracted on to the topic of his brother and baseball while still trying to remember Augie's name. Assessment/Recommendations: Bipolar Disorder - currently euthymic. Current hypersexual behaviors are more likely related to dementia syndrome rather than mood disorder. I discussed with Mr. West at length about the benefits and risks of restarting lithium and he is in agreement with restarting lithium 150mg tonight, then go to 150mg twice daily. check kidney function today or tomorrow, then check lithium level five days after initiation. He may need to return to 300mg twice daily in order to maintain euthymia or he may be able to do well on somewhat subtherapeutic dose. It is reasonable to shoot for as low an effective dose as possible given his history of lithium toxicity and his age and physical condition. Addition of lamotrigine as a mood stabilizer may help reduce needed dose of lithium. Dementia: patient clinically struggles with memory and with judgment. Some of his hypersexualized behaviors are likely related to cognitive decline. - check Creatinine, BUN, urine specific gravity today or tomorrow. - start lithium 150mg tonight, then lithium 150mg twice daily. Check lithium level in 5 days while inpatient or make sure there is outpatient follow up with PCP to check lithium level and adjust. - patient needs reading glasses and reading material for entertainment I will continue to be involved in Mr. West's care while he is here at [facility]. Visit Statistics Total Visit Minutes: 20 minutes face-to face, 5 minutes consultation with staff Visit Time Allocation >50% of face to face visit spent in counseling (Extensive teaching, explanation and instructions. Counseling as appropriate. Review of plans, and discussion concerning medical problems dealt with at this visit. Discussion of benefits/risks of treatment, anticipated course of events, potential medication side effects, options, alternatives, and follow up plans. Questions were solicited and answered, and the patient verbalized understanding.), and/or coordination of care.
--- NOTE | 2017-10-08 11:33 | INPTTR_ITS ---
PHYSICAL THERAPY PROGRESS NOTE Date: 10/08/2017 PRECAUTIONS: Fall precautions SUBJECTIVE: Pt sleeping in bed, agreeable to PT intervention upon being woken up by name. OBJECTIVE PAIN: no reports of pain BED MOBILITY/TRANSFERS Supine-Sit: HOB 30 degrees, SBA Sit-stand: FWW, SBA Stand-sit: FWW, SBA GAIT Assistive Device: FWW Assist: CGA Distance: 150 ft, one seated rest break Pt continues to need several verbal cues to look straight ahead to avoid loss of balance. Pt easily distracted and had trouble focusing on task. Pt back in chair with fall alarm activated. RN notified to assist pt in toileting as pt reported he wanted to use the urinal. ASSESSMENT: Pt required one seated rest break as he was fatigued from the walk and exercises from earlier this morning. He was able to perform supine to sit transfer with SBA in a shorter period of time compared to yesterday. Pt will benefit form continued gait training to build strength. THEREX: Pt too fatigued from walking to perform exercises PLAN: Progress gait training TREATMENT CODES/TIME: 15 min TAx1 11:30 Jenna Unger SPT under direct supervision of Evelyn Dey PT
[2017-10-08] MEDS: Folic Acid 1 MG TAB PO (14:38)
--- NOTE | 2017-10-08 14:52 | PDOC.CMPRO ---
Date of Service: 10/08/17 Time of Service: 14:52 Care Management Progress Note S/O: Pt reviewed at morning multidisciplinary rounds, medications are being adjusted [place] was restarted for this evening. has met with him and will continue to provide consultive services. Pt will have a visit with potential adult day home ([facility]) and director Rosie of [facility] which will occur at 2:00 pm . CM spoke with sister Gianna she would like CM to be present during the meeting. She expresses she would like pt to be in an assisted living and is concerned that another home may increase his confusion and feels he does not do well with change. A: 72 year old male admitted for AMS and weakness. P:CM to continue Coordination with [facility] cell number [phone] Office is [phone]. She is actively looking for adult care bed. Planned visit on with potential adult custodial and director from [facility]. CM will continue to coordinate services with CC toward discharge and disposition.
--- NOTE | 2017-10-08 15:22 | CMPROGNOTE_ITS ---
Date of Service: 10/08/17 Time of Service: 14:52 Care Management Progress Note S/O: Pt reviewed at morning multidisciplinary rounds, medications are being adjusted [place] was restarted for this evening. has met with him and will continue to provide consultive services. Pt will have a visit with potential adult day home ([facility]) and director Rosie of [facility] which will occur at 2:00 pm . CM spoke with sister Gianna she would like CM to be present during the meeting. She expresses she would like pt to be in an assisted living and is concerned that another home may increase his confusion and feels he does not do well with change. A: 72 year old male admitted for AMS and weakness. P:CM to continue Coordination with [facility] [employer] cell number [phone] Office is [phone]. She is actively looking for adult care bed. Planned visit on with potential adult retirement and director from [facility]. CM will continue to coordinate services with CC toward discharge and disposition.
[2017-10-08 15:25] VITALS: BP 116/63; PULSE 101; RESP 19; TEMP 37.4; O2SAT 96
[2017-10-08 15:56] LABS: FREE T4 0.97 ng/dL (0.76-1.46)
[2017-10-08] MEDS: Lithium Carbonate 150 MG CAP PO (19:44)
[2017-10-08] MEDS: Melatonin 3 MG TAB 6 MG PO (19:45)
[2017-10-08] MEDS: QUEtiapine 25 MG TAB PO (19:45)
[2017-10-08] MEDS: Simvastatin 20 MG TAB PO (19:45)
[2017-10-08] MEDS: Nystatin POWDER 60 GM JAR TP (19:46)
[2017-10-09 01:06] VITALS: BP 133/60; PULSE 81; RESP 20; TEMP 36.4; O2SAT 97
[2017-10-09 07:30] VITALS: BP 120/73; PULSE 65; RESP 18; TEMP 36.6; O2SAT 95
[2017-10-09] MEDS: Nystatin POWDER 60 GM JAR TP ×2 (08:52→20:58)
[2017-10-09] MEDS: sitaGLIPtin 25 MG TABLET 50 MG PO (08:52)
[2017-10-09] MEDS: Lithium Carbonate 150 MG CAP PO ×2 (08:53→20:10)
[2017-10-09] MEDS: Carbidopa 25/Levodopa 100 TAB PO ×3 (08:54→20:10)
[2017-10-09] MEDS: lamoTRIgine 25 MG TAB PO (08:54)
[2017-10-09] MEDS: Multivitamin TAB 1 TAB PO (08:54)
[2017-10-09] MEDS: Folic Acid 1 MG TAB PO (08:54)
[2017-10-09] MEDS: Metoprolol 25 MG TAB PO ×2 (08:54→20:10)
[2017-10-09] MEDS: Aspirin E.C. 81 MG TABEC PO (08:55)
[2017-10-09] MEDS: Senna TAB 1 TAB PO (08:55)
--- NOTE | 2017-10-09 10:40 | INPTTR_ITS ---
PHYSICAL THERAPY PROGRESS NOTE Date: 10/09/2017 PRECAUTIONS: Fall Precautions SUBJECTIVE: Pt awake in bed, agreeable to PT treatment. OBJECTIVE PAIN: no c/o pain BED MOBILITY/TRANSFERS Supine-sit: HOB 30 degrees, independent Sit-supine: HOB 30 degrees, independent Sit-stand: FWW, SBA Stand-sit: FWW, SBA GAIT Assistive Device: FWW Assist: SBA Distance: 325 ft with 2 rests in wheelchair Pt increased distance with gait, required 2 rests today and continues to require verbal cues to look straight ahead for safety purposes. Pt left in bed with cup of water and told to contact nursing staff with further requests. ASSESSMENT: Pt was able to walk further today, but continues to require short rest periods. Pt could not specify why he needed a rest, muscle fatigue or shortness of breath. Pt continues to require multiple verbal cues throughout gait training to avoid turning head side to side as this decreases his stability and increases risk of falling. Pt will benefit from continued gait training to improve strength and decrease risk of falling. PLAN: Progress gait training TREATMENT CODES/TIME: 15 min TA x1 10:20 Jenna Unger SPT under direct supervisoin of Evelyn Dey PT
--- NOTE | 2017-10-09 10:41 | PDOC.CMPRO ---
Date of Service: 10/09/17 Time of Service: 10:41 Care Management Progress Note S/O:CM met with patient in the room he was sitting up in chair. CM reviewed all about me. Pt was able to have conversations about his likes and dislikes. Reviewed plan for pt to meet with potential adult longterm today. Pt is looking forward to the meeting potential family. CM attended meeting with patient, family and director of [facility] services. Meeting went well patient states he would like to do a day visit with family. CM met with Kanu Shah and his after the meeting. Plan will be for patient to go out on day pass next week with family day to be coordinated. CM provided contact information to family. A:72 year old male admitted for AMS and weakness. P:CM to contact Pritesh sister at his request to provide update on family the meeting. CM to continue Coordination with [facility] [employer] cell number [phone] Office is [phone]. She is actively looking for adult care bed. CM will continue to coordinate services with CC toward discharge and disposition.
--- NOTE | 2017-10-09 10:48 | CMPROGNOTE_ITS ---
Date of Service: 10/09/17 Time of Service: 10:41 Care Management Progress Note S/O:CM met with patient in the room he was sitting up in chair. CM reviewed all about me. Pt was able to have conversations about his likes and dislikes. Reviewed plan for pt to meet with potential adult [facility] today. Pt is looking forward to the meeting potential family. CM attended meeting with patient, family and director of [facility] services. Meeting went well patient states he would like to do a day visit with family. CM met with Kanu Shah and his after the meeting. Plan will be for patient to go out on day pass next week with family day to be coordinated. CM provided contact information to family. A:72 year old male admitted for AMS and weakness. P:CM to contact Pritesh sister at his request to provide update on family the meeting. CM to continue Coordination with [facility] [employer] [facility] cell number [phone] Office is [phone]. She is actively looking for adult care bed. CM will continue to coordinate services with CC toward discharge and disposition.
--- NOTE | 2017-10-09 10:56 | PDOC.PSYFU ---
Follow Up: FOLLOW UP Psychiatry Consultation: Overnight events: - took medications as prescribed - no behavioral incidents recorded by nursing - started lithium 150mg twice daily. Subjective: - pt reports feeling well, no nausea, vomiting, new tremor. - pt states he is not aware he took lithium last night and this morning - pt is aware of meeting with home child care provider and potential new home placement this afternoon - pt has not yet gotten reading glasses or reading materials - pt reports having slept well last night - pt denies auditory or visual hallucinations - pt reports his mood is good REVIEW OF SYSTEMS: Constitutional: feels well Psych: as noted above Allergies: as noted in chart and reviewed in this visit MENTAL STATUS EXAM: Constitutional: appears in no acute distress, lying dozing comfortably in bed, easily awakened and alert Attitude: cooperative, seeking physical contact with me, wanting to hold my hand, accepts my declining to hold his hand Psychomotor: no retardation or agitation Speech: nonpressured, normal volume and prosody. No articulation problems noted. Associations: no looseness Thought process: slow but logical, coherent and goal directed Thought content without psychosis, delusions, obsessions No suicidal or homicidal ideations Hallucinations denied Mood: good Affect: full, euthymic, calm Attention/Concentration: poor at baseline Judgment/insight: poor Oriented to self and place and to time with prompting from posted information Language appropriate to age and education Fund of knowledge appropriate to age and education Memory intact to recent and remote events Other cognitive testing: none Assessment/Recommendations: - bipolar affective disorder: continue lithium 150mg twice daily and draw lithium trough after five days of lithium. He may be well-maintained on subtherapeutic blood levels of lithium - continue lamotrigine titration - continue seeking appropriate outpatient placement - discontinue seroquel 25mg. If he needs medication for sleep then another medication would be safer, such as trazodone 25mg or melatonin, or clonidine 01.mg. This low a dose is unlikely to be helpful for bipolar disorder. Dementia: patient accepting verbal redirecting of behaviors today from me when reaching out for physical contact. Staff should continue to be verbally supportive but avoid physical contact that he might misunderstand as sexual invitation. Visit Statistics Total Visit Minutes: face - to -face five minutes, coordination of care with hospitalist 5 minutes. Visit Time Allocation >50% of face to face visit spent in counseling (Extensive teaching, explanation and instructions. Counseling as appropriate. Review of plans, and discussion concerning medical problems dealt with at this visit. Discussion of benefits/risks of treatment, anticipated course of events, potential medication side effects, options, alternatives, and follow up plans. Questions were solicited and answered, and the patient verbalized understanding.), and/or coordination of care.
--- NOTE | 2017-10-09 11:13 | INPN_ITS ---
PHYSICAL THERAPY PROGRESS NOTE Date: 10/09/17 Dates of service: 10/03/17-10/09/17 PRECAUTIONS: Fall Precautions SUBJECTIVE: NT OBJECTIVE 10/03/17-10/09/17 BED MOBILITY/TRANSFERS: Supine-sit: independent Sit-supine: independent Sit-stand: SBA with FWW Stand-sit: SBA GAIT: SBA with FWW 250ft-325ft BALANCE: Static sitting: normal Dynamic Sitting: normal Static Standing: fair Dynamic Standing: fair ASSESSMENT: Pt is a 72yr old male admitted with generalized weakness, gait instability and urinary incontinence in setting of Schizophrenia, Bipolar Disorder, right basal ganglia lacunar infarct, chronic kidney disease, diabetes mellitus type II, obesity, chronic obstructive pulmonary disease, peripheral vascular disease, osteoarthritis. Pt has progressed from SBA bed transfers to independent, from CGA gait with FWW 20ftx1 to SBA gait with FWW 325ft. Pt has improved in strength with all functional mobility, is at functional level to mobilize in a home setting with FWW for gait stability. Will continue therapy intervention to progress transfers to supervision and for stair training. GOALS Goals x1 week 1. Supine-sit: HOB flat, independent 2. Sit-Supine HOB flat, independent 3. Sit-Stand: SBA with FWW 4. Stand-sit: supervision 5. Bed-chair supervision with FWW 6. Chair-bed supervision with FWW 7. Gait: SBA with FWW 150ft 8. Stairs: up/down 2 steps with railing SBA Pt met goals # 1, 2, 3, 7. Continue PT toward goals # 4, 5, 6, 8 PLAN OF CARE/TREATMENT PLAN: Continue 1-2x/day, 7 days/ week x 1 week Continue plan of care has been reviewed with the [employer] WORKER providing the service under Physical therapy direction. Continue physical therapy intervention for strengthening, bed mobility, transfers, gait, stairs, balance training, use of assistive device. DISCHARGE RECOMMENDATIONS [facility] care facility vs. assisted living Evelyn Dey PT
--- NOTE | 2017-10-09 11:24 | PSYCO_ITS ---
Follow Up: FOLLOW UP Psychiatry Consultation: Overnight events: - took medications as prescribed - no behavioral incidents recorded by nursing - started lithium 150mg twice daily. Subjective: - pt reports feeling well, no nausea, vomiting, new tremor. - pt states he is not aware he took lithium last night and this morning - pt is aware of meeting with patient care representative and potential new home placement this afternoon - pt has not yet gotten reading glasses or reading materials - pt reports having slept well last night - pt denies auditory or visual hallucinations - pt reports his mood is good REVIEW OF SYSTEMS: Constitutional: feels well Psych: as noted above Allergies: as noted in chart and reviewed in this visit MENTAL STATUS EXAM: Constitutional: appears in no acute distress, lying dozing comfortably in bed, easily awakened and alert Attitude: cooperative, seeking physical contact with me, wanting to hold my hand , accepts my declining to hold his hand Psychomotor: no retardation or agitation Speech: nonpressured, normal volume and prosody. No articulation problems noted. Associations: no looseness Thought process: slow but logical, coherent and goal directed Thought content without psychosis, delusions, obsessions No suicidal or homicidal ideations Hallucinations denied Mood: good Affect: full, euthymic, calm Attention/Concentration: poor at baseline Judgment/insight: poor Oriented to self and place and to time with prompting from posted information Language appropriate to age and education Fund of knowledge appropriate to age and education Memory intact to recent and remote events Other cognitive testing: none Assessment/Recommendations: - bipolar affective disorder: continue lithium 150mg twice daily and draw lithium trough after five days of lithium. He may be well-maintained on subtherapeutic blood levels of lithium - continue lamotrigine titration - continue seeking appropriate outpatient placement - discontinue seroquel 25mg. If he needs medication for sleep then another medication would be safer, such as trazodone 25mg or melatonin, or clonidine 01.mg. This low a dose is unlikely to be helpful for bipolar disorder. Dementia: patient accepting verbal redirecting of behaviors today from me when reaching out for physical contact. Staff should continue to be verbally supportive but avoid physical contact that he might misunderstand as sexual invitation. Visit Statistics Total Visit Minutes: face - to -face five minutes, coordination of care with hospitalist 5 minutes. Visit Time Allocation >50% of face to face visit spent in counseling (Extensive teaching, explanation and instructions. Counseling as appropriate. Review of plans, and discussion concerning medical problems dealt with at this visit. Discussion of benefits/risks of treatment, anticipated course of events, potential medication side effects, options, alternatives, and follow up plans. Questions were solicited and answered, and the patient verbalized understanding.), and/or coordination of care.
[2017-10-09 11:25] VITALS: BP 143/82; PULSE 71; RESP 20; TEMP 36.6; O2SAT 96
[2017-10-09] MEDS: Docusate Sodium 100 MG CAP PO (11:31)
--- NOTE | 2017-10-09 14:52 | INPTTR_ITS ---
PHYSICAL THERAPY PROGRESS NOTE Date: 10/09/2017 PRECAUTIONS: Fall precautions SUBJECTIVE: Pt awake in bed, agreeable to PT treatment. OBJECTIVE PAIN: no c/o pain BED MOBILITY/TRANSFERS Supine-sit: independent Sit-stand: FWW, supervision Stand-sit: FWW, supervision GAIT Pt walked with FWW 75 ft SBA, 4WW 300 ft CGA with 1 standing rest and 1 sitting rest. Pt was given multiple verbal cues to maintain focus straight ahead, to slow down, and to remain close to the walker for safety purposes. Pt left in chair with fall alarm activated. THEREX: LE: Ankle pumps, long arc quad, hip flexion 20 reps each bilaterally UE: Row, bicep curl, tricep extension 10 reps each bilaterally STAIRS: Pt ascended/descended 10 stairs with bilateral hand rails and CGA, instructed in step over pattern. Pt was short of breath following stair training and required seated rest break. ASSESSMENT: Pt was able to complete stair training today, but was fatigued due to decreased LE muscle strength. Pt continues to require multiple verbal cues throughout the session to remain on task to avoid falls. The pt reported he had a 4WW at home, so he will be gait training with the 4WW more frequently to prepare him for discharge. Pt will continue to benefit from UE and LE strengthening and balance training. PLAN: Progress UE and LE strengthening Progress balance training Progress gait training with 4WW TREATMENT CODES/TIME: 23 min TA x1 TP x1 1345 Jenna Unger SPT under the direct supervision of Evelyn Dey PT
[2017-10-09] MEDS: Melatonin 3 MG TAB 6 MG PO (20:09)
[2017-10-09] MEDS: Simvastatin 20 MG TAB PO (20:10)
[2017-10-09] MEDS: QUEtiapine 25 MG TAB PO (20:10)
[2017-10-10 07:25] VITALS: BP 112/65; PULSE 66; RESP 19; TEMP 35.4; O2SAT 96
[2017-10-10] MEDS: Metoprolol 25 MG TAB PO ×2 (09:33→20:15)
[2017-10-10] MEDS: sitaGLIPtin 25 MG TABLET 50 MG PO (09:33)
[2017-10-10] MEDS: Carbidopa 25/Levodopa 100 TAB PO ×3 (09:33→20:14)
[2017-10-10] MEDS: Aspirin E.C. 81 MG TABEC PO (09:34)
[2017-10-10] MEDS: Folic Acid 1 MG TAB PO (09:34)
[2017-10-10] MEDS: lamoTRIgine 25 MG TAB PO (09:34)
[2017-10-10] MEDS: Senna TAB 1 TAB PO (09:34)
[2017-10-10] MEDS: Lithium Carbonate 150 MG CAP PO ×2 (09:34→20:14)
[2017-10-10] MEDS: Nystatin POWDER 60 GM JAR TP (09:35)
[2017-10-10] MEDS: Multivitamin TAB 1 TAB PO (09:35)
--- NOTE | 2017-10-10 11:07 | INPTTR_ITS ---
PHYSICAL THERAPY PROGRESS NOTE Date: 10/10/2017 PRECAUTIONS: Fall Precautions SUBJECTIVE: Pt asleep in bed, agreeable to PT treatment upon being wakened by name. Pt notes he feels tired today. OBJECTIVE PAIN: no c/o pain BED MOBILITY/TRANSFERS Supine-sit: HOB 30 degrees, independent Sit-stand: FWW, supervision Stand-sit: FWW, supervision GAIT 300 ft with FWW, 2 seated rest breaks, pt walked with slower pace today and required multiple verbal cues to stand erect and stay close to the walker. Pt continues to require verbal cues to maintain forward gaze when walking. Pt left in chair with fall alarm activated. ASSESSMENT: Pt required cues to move himself into correct position for sit to stand transfer and moved more slowly when transferring. Pt was able to walk a greater distance before taking his first seated rest break, but moved at a slower pace as he reported he felt more tired today. Pt will benefit from continued gait training to build overall strength. PLAN: Progress gait training TREATMENT CODES/TIME: 15 min TA x1 11:05 Jenna Unger SPT under direct supervision of Evelyn Dey PT
[2017-10-10 11:10] VITALS: TEMP 36.2
[2017-10-10] MEDS: Polyethylene Glycol 3350 17 GM PACKET PO (11:10)
--- NOTE | 2017-10-10 11:55 | PDOC.CMACT ---
Date of Service: 10/09/17 Time of Service: 09:00 Care Management Activity Note CM reviewed all about me with patient he identifies his likes and activities that improve his quality of life while in [facility]. Patient is receiving PT and ambulating in the halls. He enjoys ambulating in halls and conversing with volunteer in the room. Patient was offered activities from the Cart including reading materials. He is able to talk to his sister twice a day over the phone which he states his the high light of his days. He was visited by the therapy dogs this past week. He met with a potential adult family this week.
--- NOTE | 2017-10-10 12:37 | PDOC.PROG_ITS ---
Date of Service: 10/09/17 Time of Service: 17:30 Assessment/Plan - Assessment/Plan (1) History of bipolar disorder Assessment: Will stop seroquel as rec by Dr. Newell. Low dose lithium restarted, lamictal continued, repeat QTc minimally elevated (2) Parkinsonism Assessment: Modest benefit from sinemet without apparent side effects, discussed again with psych and neuro, who rec continuing low dose sinemet (3) Dementia Assessment: Neuro not enthusiatic about benefit of aricept tx, will not start additional medications (4) Diabetes mellitus type 2 in obese Assessment: changed to sitagliptan due to renal risk with metformin and lithium with side effects (5) Chronic kidney disease Assessment: refused labs, will check when Li level checked prior to 6th dose History of Present Illness - History of Present Illness Chief Complaint: none History of Present Illness: NO new C/O, patient sleeps much of the day Review of Systems - Review of Systems Constitutional: denies: Fever, Chills Cardiovascular: denies: Chest Pain Gastrointestinal: denies: Nausea Neurological: denies: Weakness - Medications/Allergies Allergies/Adverse Reactions: Allergies Allergy/AdvReac Type Severity Reaction Status Date / Time diltiazem Allergy Unknown Unverified 10/01/17 15:00 tetanus toxoid, adsorbed Allergy Unknown Unverified 10/01/17 15:00 Medications: Current Medications Acetaminophen (Tylenol) 650 mg PO Q6H PRN PRN Al Hydrox/Mg Hydrox/Simethicone (Mylanta Liquid) 30 ml PO Q2H PRN PRN Albuterol Sulfate (Proventil Updraft) 2.5 mg UPD Q2H PRN PRN Aspirin (Ecotrin) 81 mg PO DAILY [facility] Last Admin: 10/10/17 09:34 Dose: 81 mg Bisacodyl (Dulcolax Suppository) 10 mg [place] DAILY PRN PRN PRN Reason: Constipation Carbidopa/Levodopa (Sinemet-25/100 Tablet) 1 tab PO TID [facility] Last Admin: 10/10/17 09:33 Dose: 1 tab Cholecalciferol (Vitamin D) 2,000 units PO DAILY [facility] Last Admin: 10/10/17 09:33 Dose: 2,000 units Dextrose (Insta-Glucose) 0 gm PO DIRECTED PRN Dextrose/Water () 0 gm IVP DIRECTED PRN Dimethicone/Zinc Oxide (Tiffanie Protect Cream) 0 gm TP PRN PRN Docusate Sodium (Colace) 100 mg PO TID PRN PRN Last Admin: 10/09/17 11:31 Dose: 100 mg Folic Acid (Folate) 1 mg PO DAILY [facility] Last Admin: 10/10/17 09:34 Dose: 1 mg Glycerin () 1 supp [place] DAILY PRN PRN PRN Reason: Constipation Lamotrigine (Lamictal) 25 mg PO DAILY [facility] Last Admin: 10/10/17 09:34 Dose: 25 mg [place] Carbonate (Eskalith) 150 mg PO BID [facility] Last Admin: 10/10/17 09:34 Dose: 150 mg Magnesium Hydroxide (Milk Of Magnesia) 30 ml PO DAILY PRN PRN Melatonin () [address] [facility] Last Admin: 10/09/17 20:09 Dose: 6 mg Metoprolol Tartrate (Lopressor) 25 mg PO BID [facility] Last Admin: 10/10/17 09:33 Dose: 25 mg Multivitamins () 1 tab PO DAILY [facility] Last Admin: 10/10/17 09:35 Dose: 1 tab Nystatin (Mycostatin Powder) 0 gm TP BID [facility] Last Admin: 10/10/17 09:35 Dose: 1 applic Polyethylene Glycol (Miralax) 17 gm PO DAILY PRN PRN PRN Reason: Constipation Last Admin: 10/10/17 11:10 Dose: 17 gm Sennosides (Senokot) 1 tab PO DAILY [facility] Last Admin: 10/10/17 09:34 Dose: 1 tab Simvastatin (Zocor) 20 mg PO HS [facility] Last Admin: 10/09/17 20:10 Dose: 20 mg Sitagliptin Phosphate (Januvia) 50 mg PO DAILY [facility] Last Admin: 10/10/17 09:33 Dose: 50 mg Sodium Biphosphate/Sodium Phosphate (Fleet Enema) 133 ml MD .EVERY 3 DAYS PRN PRN PRN Reason: Constipation White Petrol/Mineral Oil/Lanolin (Eucerin Creme) 0 gm TP PRN PRN Objective - Exam Vitals and I&O: Vital Signs Temp 36.2 C L 10/10/17 11:10 Pulse 66 10/10/17 07:25 Resp 19 10/10/17 07:25 BP 112/65 10/10/17 07:25 Pulse Ox 96 10/10/17 07:25 Intake & Output 10/09/17 10/10/17 10/10/17 23:59 11:59 23:59 Intake Total 1440 600 Balance 1440 600 Intake: Oral 1440 600 Other: Urine Color Pale Pale Urine Appearance Clear Clear Urine Odor None Voiding Methods Urinal Incontinent Incontinent General: Alert, Oriented x3, Cooperative Lungs: Clear to auscultation Abdomen: Soft. denies: Tenderness - Results Results: Laboratory Results WBC 7.81 k/cumm (4.4-10.8) 10/08/17 06:12 RBC 4.12 m/cumm (4.50-6.00) L 10/08/17 06:12 Hgb 12.3 g/dL (13.5-17.5) L 10/08/17 06:12 Hct 39.2 % (40.0-50.0) L 10/08/17 06:12 MCV 95.1 fL (80-95) H 10/08/17 06:12 MCH 29.9 pg (27.0-33.0) 10/08/17 06:12 MCHC 31.4 g/dL (32.0-36.0) L 10/08/17 06:12 RDW 13.9 % (11.8-14.1) 10/08/17 06:12 Plt Count 210 x1000/uL (130-400) 10/08/17 06:12 MPV 9.0 fL (8.0-11.0) 10/08/17 06:12 Sodium 145 mmol/L (136-145) 10/08/17 06:12 Potassium 4.0 mmol/L (3.5-5.1) 10/08/17 06:12 Chloride 110 mmol/L (98-107) H 10/08/17 06:12 Carbon Dioxide 25.6 mmol/L (21.0-32.0) 10/08/17 06:12 Anion Gap 9.4 mmol/L (3-11) 10/08/17 06:12 BUN 34 mg/dL (7-18) H 10/08/17 06:12 Creatinine 1.06 mg/dL (0.70-1.30) 10/08/17 06:12 Estimated GFR/1.73 m2 >= 60.00 (mL/min/1.73m2) 10/08/17 06:12 Glucose 135 mg/dL (70-100) H 10/08/17 06:12 Calcium 9.0 mg/dL (8.5-10.1) 10/08/17 06:12 Magnesium 2.1 mg/dL (1.8-2.4) 10/08/17 06:12 Total Bilirubin 0.23 mg/dL (0.2-1.0) 10/08/17 06:12 AST 11 U/L (15-37) L 10/08/17 06:12 ALT 7 U/L (16-63) L 10/08/17 06:12 Alkaline Phosphatase 71 U/L (46-116) 10/08/17 06:12 Total Protein 6.1 g/dL (6.4-8.2) L 10/08/17 06:12 Albumin 2.6 g/dL (3.4-5.0) L 10/08/17 06:12 Vitamin B12 541 pg/mL (193-986) 10/05/17 17:00 Folate 6.2 ng/mL (8.6-20.0) L 10/08/17 06:12 TSH 0.33 uIU/mL (0.358-3.74) L 10/05/17 17:00 Free T4 0.97 ng/dL (0.76-1.46) 10/08/17 06:12
--- NOTE | 2017-10-10 12:42 | PDOC.PROG ---
Date of Service: 10/10/17 Time of Service: 12:42 Assessment/Plan - Assessment/Plan (1) History of bipolar disorder Assessment: Li level pending, expect this to be low, if patient doing well no change in dose. Dr. Newell will review when she returns next week. (2) Chronic kidney disease Assessment: again refused labs. Will hope for succesfull draw tomorrow AM with Li level (3) Tinea cruris Assessment: will rx 5 days difulcan po, (4) Constipation Assessment: will try and offer miralax with juice. History of Present Illness - History of Present Illness Chief Complaint: constipation History of Present Illness: THe patient has not stooled in 6 days, refusing miralax presumably because of taste, does not have any abd c/o. Male nurses have noted significant tinea cruris, applying topical agents stimulates inappropriate behavior with the patient stimulating himself and making inappropriate comments. Review of Systems - Review of Systems Constitutional: denies: Fever Respiratory: denies: Cough Cardiovascular: denies: Chest Pain Gastrointestinal: Constipation. denies: Nausea, Vomiting, Abdominal Pain, Hematochezia Skin: Rash - Medications/Allergies Allergies/Adverse Reactions: Allergies Allergy/AdvReac Type Severity Reaction Status Date / Time diltiazem Allergy Unknown Unverified 10/01/17 15:00 tetanus toxoid, adsorbed Allergy Unknown Unverified 10/01/17 15:00 Medications: Current Medications Acetaminophen (Tylenol) 650 mg PO Q6H PRN PRN Al Hydrox/Mg Hydrox/Simethicone (Mylanta Liquid) 30 ml PO Q2H PRN PRN Albuterol Sulfate (Proventil Updraft) 2.5 mg UPD Q2H PRN PRN Aspirin (Ecotrin) 81 mg PO DAILY [facility] Last Admin: 10/10/17 09:34 Dose: 81 mg Bisacodyl (Dulcolax Suppository) 10 mg [place] DAILY PRN PRN PRN Reason: Constipation Carbidopa/Levodopa (Sinemet-25/100 Tablet) 1 tab PO TID [facility] Last Admin: 10/10/17 09:33 Dose: 1 tab Cholecalciferol (Vitamin D) 2,000 units PO DAILY [facility] Last Admin: 10/10/17 09:33 Dose: 2,000 units Dextrose (Insta-Glucose) 0 gm PO DIRECTED PRN Dextrose/Water () 0 gm IVP DIRECTED PRN Dimethicone/Zinc Oxide (Tiffanie Protect Cream) 0 gm TP PRN PRN Docusate Sodium (Colace) 100 mg PO TID PRN PRN Last Admin: 10/09/17 11:31 Dose: 100 mg Folic Acid (Folate) 1 mg PO DAILY [facility] Last Admin: 10/10/17 09:34 Dose: 1 mg Glycerin () 1 supp [place] DAILY PRN PRN PRN Reason: Constipation Lamotrigine (Lamictal) 25 mg PO DAILY [facility] Last Admin: 10/10/17 09:34 Dose: 25 mg [place] Carbonate (Eskalith) 150 mg PO BID [facility] Last Admin: 10/10/17 09:34 Dose: 150 mg Magnesium Hydroxide (Milk Of Magnesia) 30 ml PO DAILY PRN PRN Melatonin () 6 mg PO HS [facility] Last Admin: 10/09/17 20:09 Dose: 6 mg Metoprolol Tartrate (Lopressor) 25 mg PO BID [facility] Last Admin: 10/10/17 09:33 Dose: 25 mg Multivitamins () 1 tab PO DAILY [facility] Last Admin: 10/10/17 09:35 Dose: 1 tab Nystatin (Mycostatin Powder) 0 gm TP BID [facility] Last Admin: 10/10/17 09:35 Dose: 1 applic Polyethylene Glycol (Miralax) 17 gm PO DAILY PRN PRN PRN Reason: Constipation Last Admin: 10/10/17 11:10 Dose: 17 gm Sennosides (Senokot) 1 tab PO DAILY [facility] Last Admin: 10/10/17 09:34 Dose: 1 tab Simvastatin (Zocor) 20 mg PO HS [facility] Last Admin: 10/09/17 20:10 Dose: 20 mg Sitagliptin Phosphate (Januvia) 50 mg PO DAILY [facility] Last Admin: 10/10/17 09:33 Dose: 50 mg Sodium Biphosphate/Sodium Phosphate (Fleet Enema) 133 ml [place] .EVERY 3 DAYS PRN PRN PRN Reason: Constipation White Petrol/Mineral Oil/Lanolin (Eucerin Creme) 0 gm TP PRN PRN Objective - Exam Vitals and I&O: Vital Signs Temp 36.2 C L 10/10/17 11:10 Pulse 66 10/10/17 07:25 Resp 19 02/09/18 07:25 BP 112/65 10/10/17 07:25 Pulse Ox 96 10/10/17 07:25 Intake & Output 10/09/17 10/10/17 10/10/17 23:59 11:59 23:59 Intake Total 1440 600 Balance 1440 600 Intake: Oral 1440 600 Other: Urine Color Pale Pale Urine Appearance Clear Clear Urine Odor None Voiding Methods Urinal Incontinent Incontinent General: Alert, Oriented x3, Cooperative, No acute distress Lungs: Clear to auscultation Cardiovascular: Regular rate Abdomen: Soft. denies: Tenderness, Masses - Results Results: Laboratory Results WBC 7.81 k/cumm (4.4-10.8) 10/08/17 06:12 RBC 4.12 m/cumm (4.50-6.00) L 10/08/17 06:12 Hgb 12.3 g/dL (13.5-17.5) L 10/08/17 06:12 Hct 39.2 % (40.0-50.0) L 10/08/17 06:12 MCV 95.1 fL (80-95) H 10/08/17 06:12 MCH 29.9 pg (27.0-33.0) 10/08/17 06:12 MCHC 31.4 g/dL (32.0-36.0) L 10/08/17 06:12 RDW 13.9 % (11.8-14.1) 10/08/17 06:12 Plt Count 210 x1000/uL (130-400) 10/08/17 06:12 MPV 9.0 fL (8.0-11.0) 10/08/17 06:12 Sodium 145 mmol/L (136-145) 10/08/17 06:12 Potassium 4.0 mmol/L (3.5-5.1) 10/08/17 06:12 Chloride 110 mmol/L (98-107) H 10/08/17 06:12 Carbon Dioxide 25.6 mmol/L (21.0-32.0) 10/08/17 06:12 Anion Gap 9.4 mmol/L (3-11) 10/08/17 06:12 BUN 34 mg/dL (7-18) H 10/08/17 06:12 Creatinine 1.06 mg/dL (0.70-1.30) 10/08/17 06:12 Estimated GFR/1.73 m2 >= 60.00 (mL/min/1.73m2) 10/08/17 06:12 Glucose 135 mg/dL (70-100) H 10/08/17 06:12 Calcium 9.0 mg/dL (8.5-10.1) 10/08/17 06:12 Magnesium 2.1 mg/dL (1.8-2.4) 10/08/17 06:12 Total Bilirubin 0.23 mg/dL (0.2-1.0) 10/08/17 06:12 AST 11 U/L (15-37) L 10/08/17 06:12 ALT 7 U/L (16-63) L 10/08/17 06:12 Alkaline Phosphatase 71 U/L (46-116) 10/08/17 06:12 Total Protein 6.1 g/dL (6.4-8.2) L 10/08/17 06:12 Albumin 2.6 g/dL (3.4-5.0) L 10/08/17 06:12 Vitamin B12 541 pg/mL (193-986) 10/05/17 17:00 Folate 6.2 ng/mL (8.6-20.0) L 10/08/17 06:12 TSH 0.33 uIU/mL (0.358-3.74) L 10/05/17 17:00 Free T4 0.97 ng/dL (0.76-1.46) 10/08/17 06:12
--- NOTE | 2017-10-10 15:18 | INPTTR_ITS ---
PHYSICAL THERAPY PROGRESS NOTE Date: 10/10/2017 PRECAUTIONS: fall precautions SUBJECTIVE: Pt awake in bed, agreeable to PT treatment. OBJECTIVE PAIN: no c/o pain BED MOBILITY/TRANSFERS Supine-sit: HOB 30 degrees, independent Sit-stand: FWW, supervision Stand-sit: FWW, supervision GAIT Pt walked with FWW 250 ft with one seated rest break. Pt cued to take bigger steps, stay close to the walker, and to look straight ahead at all times. Pt left in chair with fall alarm activated. THEREX: LE: ankle pumps, long arc quad, seated hip flexion 20 reps each bilaterally UE: bicep curl, tricep extension 10 reps each bilaterally ASSESSMENT: Pt fatigued quickly with UE and LE strengthening today, but was able to walk further before taking the first seated break. Pt continues to have difficulty focusing on a task and requires multiple cues throughout the session to stay focused on the task and listen to directions. Pt will benefit form continued UE and LE strengthening and gait training to increase strength. PLAN: Progress UE and LE strengthening Progress gait training TREATMENT CODES/TIME: 23 min TA x1 TP x1 1550 Jenna Unger under the direct supervision of Evelyn Dey PT
[2017-10-10 15:44] VITALS: BP 136/71; PULSE 64; RESP 20; TEMP 36.5; O2SAT 94
--- NOTE | 2017-10-10 16:48 | PDOC.PROG ---
Date of Service: 10/08/17 Time of Service: 15:00 Assessment/Plan - Assessment/Plan (1) Macrocytic anemia Assessment: B12 and FT4 WNL, Folate low, will start folate [place] (2) History of bipolar disorder Assessment: discussed use of seroquel with addition of sinemet with neuro and psych, they agree that we should consider titrate lamictal and wean seroquel (3) Parkinsonism Assessment: continue low dose sinement (4) Folate deficiency Assessment: start replacement (5) Diabetes mellitus type 2 in obese Assessment: pt is obese and remains on glyburide, HbA1c is low. Renal function is tenuous, shama with Li, metformin is a risk shama with patient aversion to needle sticks. Will start januvia, continue diabetic diet. (6) Chronic kidney disease Assessment: Renal function is tenuous, shama with Li, metformin is a risk shama with patient aversion to needle sticks. Will start januvia, continue diabetic diet. History of Present Illness - History of Present Illness Chief Complaint: none History of Present Illness: patient irritable, wants to be left alone, no complaints Review of Systems - Review of Systems Constitutional: denies: Fever, Chills Respiratory: denies: Cough Cardiovascular: denies: Chest Pain - Medications/Allergies Allergies/Adverse Reactions: Allergies Allergy/AdvReac Type Severity Reaction Status Date / Time diltiazem Allergy Unknown Unverified 10/01/17 15:00 tetanus toxoid, adsorbed Allergy Unknown Unverified 10/01/17 15:00 Medications: Current Medications Acetaminophen (Tylenol) 650 mg PO Q6H PRN PRN Al Hydrox/Mg Hydrox/Simethicone (Mylanta Liquid) 30 ml PO Q2H PRN PRN Albuterol Sulfate (Proventil Updraft) 2.5 mg UPD Q2H PRN PRN Aspirin (Ecotrin) 81 mg PO DAILY [facility] Last Admin: 10/10/17 09:34 Dose: 81 mg Bisacodyl (Dulcolax Suppository) 10 mg [place] DAILY PRN PRN PRN Reason: Constipation Carbidopa/Levodopa (Sinemet-25/100 Tablet) 1 tab PO TID [facility] Last Admin: 10/10/17 14:58 Dose: 1 tab Cholecalciferol (Vitamin D) 2,000 units PO DAILY [facility] Last Admin: 02/09/18 09:33 Dose: 2,000 units Dextrose (Insta-Glucose) 0 gm PO DIRECTED PRN Dextrose/Water () 0 gm IVP DIRECTED PRN Dimethicone/Zinc Oxide (Tiffanie Protect Cream) 0 gm TP PRN PRN Docusate Sodium (Colace) 100 mg PO TID PRN PRN Last Admin: 10/09/17 11:31 Dose: 100 mg Folic Acid (Folate) 1 mg PO DAILY [facility] Last Admin: 10/10/17 09:34 Dose: 1 mg Glycerin () 1 supp [place] DAILY PRN PRN PRN Reason: Constipation Lamotrigine (Lamictal) 25 mg PO DAILY [facility] Last Admin: 10/10/17 09:34 Dose: 25 mg [place] Carbonate (Eskalith) 150 mg PO BID [facility] Last Admin: 10/10/17 09:34 Dose: 150 mg Magnesium Hydroxide (Milk Of Magnesia) 30 ml PO DAILY PRN PRN Melatonin () 6 mg PO HS [facility] Last Admin: 10/09/17 20:09 Dose: 6 mg Metoprolol Tartrate (Lopressor) 25 mg PO BID [facility] Last Admin: 10/10/17 09:33 Dose: 25 mg Multivitamins () 1 tab PO DAILY [facility] Last Admin: 10/10/17 09:35 Dose: 1 tab Nystatin (Mycostatin Powder) 0 gm TP BID [facility] Last Admin: 10/10/17 09:35 Dose: 1 applic Polyethylene Glycol (Miralax) 17 gm PO DAILY PRN PRN PRN Reason: Constipation Last Admin: 10/10/17 11:10 Dose: 17 gm Sennosides (Senokot) 1 tab PO DAILY [facility] Last Admin: 10/10/17 09:34 Dose: 1 tab Simvastatin (Zocor) 20 mg PO HS [facility] Last Admin: 10/09/17 20:10 Dose: 20 mg Sitagliptin Phosphate (Januvia) 50 mg PO DAILY [facility] Last Admin: 10/10/17 09:33 Dose: 50 mg Sodium Biphosphate/Sodium Phosphate (Fleet Enema) 133 ml [place] .EVERY 3 DAYS PRN PRN PRN Reason: Constipation White Petrol/Mineral Oil/Lanolin (Eucerin Creme) 0 gm TP PRN PRN Objective - Exam Vitals and I&O: Vital Signs Temp 36.5 C 10/10/17 15:44 Pulse 64 10/10/17 15:44 Resp 20 10/10/17 15:44 BP 136/71 10/10/17 15:44 Pulse Ox 94 L 10/10/17 15:44 Intake & Output 10/09/17 10/10/17 10/10/17 23:59 11:59 23:59 Intake Total 1440 600 Balance 1440 600 Intake: Oral 1440 600 Other: Urine Color Pale Pale Urine Appearance Clear Clear Urine Odor None Comment Void x 1 in toilet Voiding Methods Urinal Incontinent Toilet Incontinent General: denies: Alert, Oriented x3, Cooperative, No acute distress Cardiovascular: denies: Regular rate Abdomen: denies: Normal bowel sounds, Soft - Results Results: Laboratory Results WBC 7.81 k/cumm (4.4-10.8) 10/08/17 06:12 RBC 4.12 m/cumm (4.50-6.00) L 10/08/17 06:12 Hgb 12.3 g/dL (13.5-17.5) L 10/08/17 06:12 Hct 39.2 % (40.0-50.0) L 10/08/17 06:12 MCV 95.1 fL (80-95) H 10/08/17 06:12 MCH 29.9 pg (27.0-33.0) 10/08/17 06:12 MCHC 31.4 g/dL (32.0-36.0) L 10/08/17 06:12 RDW 13.9 % (11.8-14.1) 10/08/17 06:12 Plt Count 210 x1000/uL (130-400) 10/08/17 06:12 MPV 9.0 fL (8.0-11.0) 10/08/17 06:12 Sodium 145 mmol/L (136-145) 10/08/17 06:12 Potassium 4.0 mmol/L (3.5-5.1) 10/08/17 06:12 Chloride 110 mmol/L (98-107) H 10/08/17 06:12 Carbon Dioxide 25.6 mmol/L (21.0-32.0) 10/08/17 06:12 Anion Gap 9.4 mmol/L (3-11) 10/08/17 06:12 BUN 34 mg/dL (7-18) H 10/08/17 06:12 Creatinine 1.06 mg/dL (0.70-1.30) 10/08/17 06:12 Estimated GFR/1.73 m2 >= 60.00 (mL/min/1.73m2) 10/08/17 06:12 Glucose 135 mg/dL (70-100) H 10/08/17 06:12 Calcium 9.0 mg/dL (8.5-10.1) 10/08/17 06:12 Magnesium 2.1 mg/dL (1.8-2.4) 10/08/17 06:12 Total Bilirubin 0.23 mg/dL (0.2-1.0) 10/08/17 06:12 AST 11 U/L (15-37) L 10/08/17 06:12 ALT 7 U/L (16-63) L 10/08/17 06:12 Alkaline Phosphatase 71 U/L (46-116) 10/08/17 06:12 Total Protein 6.1 g/dL (6.4-8.2) L 10/08/17 06:12 Albumin 2.6 g/dL (3.4-5.0) L 10/08/17 06:12 Vitamin B12 541 pg/mL (193-986) 10/05/17 17:00 Folate 6.2 ng/mL (8.6-20.0) L 10/08/17 06:12 TSH 0.33 uIU/mL (0.358-3.74) L 10/05/17 17:00 Free T4 0.97 ng/dL (0.76-1.46) 10/08/17 06:12
--- NOTE | 2017-10-10 16:56 | PDOC.PROG_ITS ---
Date of Service: 10/08/17 Time of Service: 15:00 Assessment/Plan - Assessment/Plan (1) Macrocytic anemia Assessment: B12 and FT4 WNL, Folate low, will start folate [place] (2) History of bipolar disorder Assessment: discussed use of seroquel with addition of sinemet with neuro and psych, they agree that we should consider titrate lamictal and wean seroquel (3) Parkinsonism Assessment: continue low dose sinement (4) Folate deficiency Assessment: start replacement (5) Diabetes mellitus type 2 in obese Assessment: pt is obese and remains on glyburide, HbA1c is low. Renal function is tenuous, shama with Li, metformin is a risk shama with patient aversion to needle sticks. Will start januvia, continue diabetic diet. (6) Chronic kidney disease Assessment: Renal function is tenuous, shama with Li, metformin is a risk shama with patient aversion to needle sticks. Will start januvia, continue diabetic diet. History of Present Illness - History of Present Illness Chief Complaint: none History of Present Illness: patient irritable, wants to be left alone, no complaints Review of Systems - Review of Systems Constitutional: denies: Fever, Chills Respiratory: denies: Cough Cardiovascular: denies: Chest Pain - Medications/Allergies Allergies/Adverse Reactions: Allergies Allergy/AdvReac Type Severity Reaction Status Date / Time diltiazem Allergy Unknown Unverified 10/01/17 15:00 tetanus toxoid, adsorbed Allergy Unknown Unverified 10/01/17 15:00 Medications: Current Medications Acetaminophen (Tylenol) 650 mg PO Q6H PRN PRN Al Hydrox/Mg Hydrox/Simethicone (Mylanta Liquid) 30 ml PO Q2H PRN PRN Albuterol Sulfate (Proventil Updraft) 2.5 mg UPD Q2H PRN PRN Aspirin (Ecotrin) 81 mg PO DAILY [facility] Last Admin: 10/10/17 09:34 Dose: 81 mg Bisacodyl (Dulcolax Suppository) 10 mg [place] DAILY PRN PRN PRN Reason: Constipation Carbidopa/Levodopa (Sinemet-25/100 Tablet) 1 tab PO TID [facility] Last Admin: 10/10/17 14:58 Dose: 1 tab Cholecalciferol (Vitamin D) 2,000 units PO DAILY [facility] Last Admin: 02/09/18 09:33 Dose: 2,000 units Dextrose (Insta-Glucose) 0 gm PO DIRECTED PRN Dextrose/Water () 0 gm IVP DIRECTED PRN Dimethicone/Zinc Oxide (Tiffanie Protect Cream) 0 gm TP PRN PRN Docusate Sodium (Colace) 100 mg PO TID PRN PRN Last Admin: 10/09/17 11:31 Dose: 100 mg Folic Acid (Folate) 1 mg PO DAILY [facility] Last Admin: 10/10/17 09:34 Dose: 1 mg Glycerin () 1 supp [place] DAILY PRN PRN PRN Reason: Constipation Lamotrigine (Lamictal) 25 mg PO DAILY [facility] Last Admin: 10/10/17 09:34 Dose: 25 mg [place] Carbonate (Eskalith) 150 mg PO BID [facility] Last Admin: 10/10/17 09:34 Dose: 150 mg Magnesium Hydroxide (Milk Of Magnesia) 30 ml PO DAILY PRN PRN Melatonin () 6 mg PO HS [facility] Last Admin: 10/09/17 20:09 Dose: 6 mg Metoprolol Tartrate (Lopressor) 25 mg PO BID [facility] Last Admin: 10/10/17 09:33 Dose: 25 mg Multivitamins () 1 tab PO DAILY [facility] Last Admin: 10/10/17 09:35 Dose: 1 tab Nystatin (Mycostatin Powder) 0 gm TP BID [facility] Last Admin: 10/10/17 09:35 Dose: 1 applic Polyethylene Glycol (Miralax) 17 gm PO DAILY PRN PRN PRN Reason: Constipation Last Admin: 10/10/17 11:10 Dose: 17 gm Sennosides (Senokot) 1 tab PO DAILY [facility] Last Admin: 10/10/17 09:34 Dose: 1 tab Simvastatin (Zocor) 20 mg PO HS [facility] Last Admin: 10/09/17 20:10 Dose: 20 mg Sitagliptin Phosphate (Januvia) 50 mg PO DAILY [facility] Last Admin: 10/10/17 09:33 Dose: 50 mg Sodium Biphosphate/Sodium Phosphate (Fleet Enema) 133 ml [place] .EVERY 3 DAYS PRN PRN PRN Reason: Constipation White Petrol/Mineral Oil/Lanolin (Eucerin Creme) 0 gm TP PRN PRN Objective - Exam Vitals and I&O: Vital Signs Temp 36.5 C 10/10/17 15:44 Pulse 64 10/10/17 15:44 Resp 20 10/10/17 15:44 BP 136/71 10/10/17 15:44 Pulse Ox 94 L 10/10/17 15:44 Intake & Output 10/09/17 10/10/17 10/10/17 23:59 11:59 23:59 Intake Total 1440 600 Balance 1440 600 Intake: Oral 1440 600 Other: Urine Color Pale Pale Urine Appearance Clear Clear Urine Odor None Comment Void x 1 in toilet Voiding Methods Urinal Incontinent Toilet Incontinent General: denies: Alert, Oriented x3, Cooperative, No acute distress Cardiovascular: denies: Regular rate Abdomen: denies: Normal bowel sounds, Soft - Results Results: Laboratory Results WBC 7.81 k/cumm (4.4-10.8) 10/08/17 06:12 RBC 4.12 m/cumm (4.50-6.00) L 10/08/17 06:12 Hgb 12.3 g/dL (13.5-17.5) L 10/08/17 06:12 Hct 39.2 % (40.0-50.0) L 10/08/17 06:12 MCV 95.1 fL (80-95) H 10/08/17 06:12 MCH 29.9 pg (27.0-33.0) 10/08/17 06:12 MCHC 31.4 g/dL (32.0-36.0) L 10/08/17 06:12 RDW 13.9 % (11.8-14.1) 10/08/17 06:12 Plt Count 210 x1000/uL (130-400) 10/08/17 06:12 MPV 9.0 fL (8.0-11.0) 10/08/17 06:12 Sodium 145 mmol/L (136-145) 10/08/17 06:12 Potassium 4.0 mmol/L (3.5-5.1) 10/08/17 06:12 Chloride 110 mmol/L (98-107) H 10/08/17 06:12 Carbon Dioxide 25.6 mmol/L (21.0-32.0) 10/08/17 06:12 Anion Gap 9.4 mmol/L (3-11) 10/08/17 06:12 BUN 34 mg/dL (7-18) H 10/08/17 06:12 Creatinine 1.06 mg/dL (0.70-1.30) 10/08/17 06:12 Estimated GFR/1.73 m2 >= 60.00 (mL/min/1.73m2) 10/08/17 06:12 Glucose 135 mg/dL (70-100) H 10/08/17 06:12 Calcium 9.0 mg/dL (8.5-10.1) 10/08/17 06:12 Magnesium 2.1 mg/dL (1.8-2.4) 10/08/17 06:12 Total Bilirubin 0.23 mg/dL (0.2-1.0) 10/08/17 06:12 AST 11 U/L (15-37) L 10/08/17 06:12 ALT 7 U/L (16-63) L 10/08/17 06:12 Alkaline Phosphatase 71 U/L (46-116) 10/08/17 06:12 Total Protein 6.1 g/dL (6.4-8.2) L 10/08/17 06:12 Albumin 2.6 g/dL (3.4-5.0) L 10/08/17 06:12 Vitamin B12 541 pg/mL (193-986) 10/05/17 17:00 Folate 6.2 ng/mL (8.6-20.0) L 10/08/17 06:12 TSH 0.33 uIU/mL (0.358-3.74) L 10/05/17 17:00 Free T4 0.97 ng/dL (0.76-1.46) 10/08/17 06:12
[2017-10-10 20:10] VITALS: BP 116/65; PULSE 62; RESP 20; TEMP 36.6; O2SAT 95
[2017-10-10] MEDS: Melatonin 3 MG TAB 6 MG PO (22:16)
[2017-10-10] MEDS: Simvastatin 20 MG TAB PO (22:16)
[2017-10-10 22:39] VITALS: BP 134/82; PULSE 62; RESP 18; TEMP 36.8; O2SAT 96
[2017-10-11 07:10] VITALS: BP 123/72; PULSE 65; RESP 18; TEMP 36.2; O2SAT 95
[2017-10-11] MEDS: Fluconazole 150 MG TAB PO (08:33)
[2017-10-11] MEDS: Aspirin E.C. 81 MG TABEC PO (08:34)
[2017-10-11] MEDS: Lithium Carbonate 150 MG CAP PO ×2 (08:34→19:52)
[2017-10-11] MEDS: Folic Acid 1 MG TAB PO (08:34)
[2017-10-11] MEDS: Multivitamin TAB 1 TAB PO (08:34)
[2017-10-11] MEDS: Carbidopa 25/Levodopa 100 TAB PO ×3 (08:34→19:52)
[2017-10-11] MEDS: sitaGLIPtin 25 MG TABLET 50 MG PO (08:35)
[2017-10-11] MEDS: Metoprolol 25 MG TAB PO ×2 (08:35→19:52)
[2017-10-11] MEDS: Docusate Sodium 100 MG CAP PO (08:35)
[2017-10-11] MEDS: Nystatin POWDER 60 GM JAR TP ×2 (08:36→19:51)
[2017-10-11] MEDS: Senna TAB 1 TAB PO (08:36)
[2017-10-11] MEDS: lamoTRIgine 25 MG TAB PO (08:36)
--- NOTE | 2017-10-11 10:06 | PDOC.PROG ---
Date of Service: 10/11/17 Time of Service: 10:06 Assessment/Plan - Assessment/Plan (1) Folate deficiency Plan: Being supplemented. AM labs have not resulted at time of note. (2) Tinea cruris Assessment: Currently on Fluconazole along with Nystatin powder. 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 (3) History of bipolar disorder Plan: EKG performed to evaluate potential for QT prolongation. QTc WNL at 421. Review of Systems - Review of Systems Constitutional: denies: Fever, Chills Respiratory: denies: Cough, Shortness of Breath Cardiovascular: denies: Chest Pain, Palpitations Skin: Rash - Medications/Allergies Allergies/Adverse Reactions: Allergies Allergy/AdvReac Type Severity Reaction Status Date / Time diltiazem Allergy Unknown Unverified 10/01/17 15:00 tetanus toxoid, adsorbed Allergy Unknown Unverified 10/01/17 15:00 Medications: Current Medications Acetaminophen (Tylenol) 650 mg PO Q6H PRN PRN Al Hydrox/Mg Hydrox/Simethicone (Mylanta Liquid) 30 ml PO Q2H PRN PRN Albuterol Sulfate (Proventil Updraft) 2.5 mg UPD Q2H PRN PRN Aspirin (Ecotrin) 81 mg PO DAILY [facility] Last Admin: 10/11/17 08:34 Dose: 81 mg Bisacodyl (Dulcolax Suppository) 10 mg [place] DAILY PRN PRN PRN Reason: Constipation Carbidopa/Levodopa (Sinemet-25/100 Tablet) 1 tab PO TID [facility] Last Admin: 10/11/17 08:34 Dose: 1 tab Cholecalciferol (Vitamin D) 2,000 units PO DAILY [facility] Last Admin: 10/11/17 08:35 Dose: 2,000 units Dextrose (Insta-Glucose) 0 gm PO DIRECTED PRN Dextrose/Water () 0 gm IVP DIRECTED PRN Dimethicone/Zinc Oxide (Tiffanie Protect Cream) 0 gm TP PRN PRN Docusate Sodium (Colace) 100 mg PO TID PRN PRN Last Admin: 10/11/17 08:35 Dose: 100 mg Fluconazole (Diflucan) 150 mg PO DAILY [facility] Stop: 10/15/17 08:31 Last Admin: 10/11/17 08:33 Dose: 150 mg Folic Acid (Folate) 1 mg PO DAILY [facility] Last Admin: 10/11/17 08:34 Dose: 1 mg Glycerin () 1 supp [place] DAILY PRN PRN PRN Reason: Constipation Lamotrigine (Lamictal) 25 mg PO DAILY [facility] Last Admin: 10/11/17 08:36 Dose: 25 mg [place] Carbonate (Eskalith) 150 mg PO BID [facility] Last Admin: 10/11/17 08:34 Dose: 150 mg Magnesium Hydroxide (Milk Of Magnesia) 30 ml PO DAILY PRN PRN Melatonin () 6 mg PO [facility] Last Admin: 10/10/17 22:16 Dose: 6 mg Metoprolol Tartrate (Lopressor) 25 mg PO BID [facility] Last Admin: 10/11/17 08:35 Dose: 25 mg Multivitamins () 1 tab PO DAILY [facility] Last Admin: 10/11/17 08:34 Dose: 1 tab Nystatin (Mycostatin Powder) 0 gm TP BID [facility] Last Admin: 10/11/17 08:36 Dose: 1 applic Polyethylene Glycol (Miralax) 17 gm PO DAILY PRN PRN PRN Reason: Constipation Last Admin: 10/10/17 11:10 Dose: 17 gm Sennosides (Senokot) 1 tab PO DAILY [facility] Last Admin: 10/11/17 08:36 Dose: 1 tab Simvastatin (Zocor) 20 mg PO [facility] Last Admin: 10/10/17 22:16 Dose: 20 mg Sitagliptin Phosphate (Januvia) 50 mg PO DAILY [facility] Last Admin: 10/11/17 08:35 Dose: 50 mg Sodium Biphosphate/Sodium Phosphate (Fleet Enema) 133 ml [place] .EVERY 3 DAYS PRN PRN PRN Reason: Constipation White Petrol/Mineral Oil/Lanolin (Eucerin Creme) 0 gm TP PRN PRN Objective - Exam Vitals and I&O: Vital Signs Temp 36.2 C L 10/11/17 07:10 Pulse 65 10/11/17 07:10 Resp 18 10/11/17 07:10 BP 123/72 10/11/17 07:10 Pulse Ox 95 10/11/17 07:10 Intake & Output 10/10/17 10/10/17 10/11/17 11:59 23:59 11:59 Intake Total 600 960 360 Balance 600 960 360 Intake: Oral 600 960 360 Other: Urine Color Pale Yellow Urine Appearance Clear Clear Urine Odor Normal Comment Void x 1 in toilet Stool Size Copious Stool Characteristics Hard Voiding Methods Incontinent Diaper Urinal Incontinent Diaper Incontinent General: Alert, Oriented x3, Cooperative Neck: Supple, +2 carotid pulse wo bruit Lungs: Clear to auscultation Cardiovascular: Regular rate, Normal S1, Normal S2. denies: Murmurs Skin: Rashes (Rash consistent with Tinea Cruris - bilateral groin. Moist. Mild erythema. Non-tneder. No increased warmth.) - Results Results: Laboratory Results WBC 7.81 k/cumm (4.4-10.8) 10/08/17 06:12 RBC 4.12 m/cumm (4.50-6.00) L 10/08/17 06:12 Hgb 12.3 g/dL (13.5-17.5) L 10/08/17 06:12 Hct 39.2 % (40.0-50.0) L 10/08/17 06:12 MCV 95.1 fL (80-95) H 10/08/17 06:12 MCH 29.9 pg (27.0-33.0) 10/08/17 06:12 MCHC 31.4 g/dL (32.0-36.0) L 10/08/17 06:12 RDW 13.9 % (11.8-14.1) 10/08/17 06:12 Plt Count 210 x1000/uL (130-400) 10/08/17 06:12 MPV 9.0 fL (8.0-11.0) 10/08/17 06:12 Sodium 145 mmol/L (136-145) 10/08/17 06:12 Potassium 4.0 mmol/L (3.5-5.1) 10/08/17 06:12 Chloride 110 mmol/L (98-107) H 10/08/17 06:12 Carbon Dioxide 25.6 mmol/L (21.0-32.0) 10/08/17 06:12 Anion Gap 9.4 mmol/L (3-11) 10/08/17 06:12 BUN 34 mg/dL (7-18) H 10/08/17 06:12 Creatinine 1.06 mg/dL (0.70-1.30) 10/08/17 06:12 Estimated GFR/1.73 m2 >= 60.00 (mL/min/1.73m2) 10/08/17 06:12 Glucose 135 mg/dL (70-100) H 10/08/17 06:12 Calcium 9.0 mg/dL (8.5-10.1) 10/08/17 06:12 Magnesium 2.1 mg/dL (1.8-2.4) 10/08/17 06:12 Total Bilirubin 0.23 mg/dL (0.2-1.0) 10/08/17 06:12 AST 11 U/L (15-37) L 10/08/17 06:12 ALT 7 U/L (16-63) L 10/08/17 06:12 Alkaline Phosphatase 71 U/L (46-116) 10/08/17 06:12 Total Protein 6.1 g/dL (6.4-8.2) L 10/08/17 06:12 Albumin 2.6 g/dL (3.4-5.0) L 10/08/17 06:12 Vitamin B12 541 pg/mL (193-986) 10/05/17 17:00 Folate 6.2 ng/mL (8.6-20.0) L 10/08/17 06:12 TSH 0.33 uIU/mL (0.358-3.74) L 10/05/17 17:00 Free T4 0.97 ng/dL (0.76-1.46) 10/08/17 06:12
--- NOTE | 2017-10-11 11:57 | INPTTR_ITS ---
PHYSICAL THERAPY PROGRESS NOTE Date:10/11/17 PRECAUTIONS:Fall precaution SUBJECTIVE: Pt. was in good spirits. Agreeable to tx. BED MOBILITY/TRANSFERS Rolling L/R: S Supine-sit: S Sit-supine: S Sit-stand: SBA Stand-sit: SBA Bed-Chair: SBA Chair-bed: SBA GAIT Assistive Device FWW Weightbearing WBAT Assist: CGA/SBA Distance: 250' THEREX: Please see exercise chart for activites done. PLAN: Pt. continues to show signs of improvement with Strength and stability. TREATMENT CODES/TIME: 20mins, TAX1, 10:15am
[2017-10-11 15:01] VITALS: BP 115/67; PULSE 60; RESP 18; TEMP 36.4; O2SAT 97
[2017-10-11 19:45] VITALS: BP 135/79; PULSE 69; RESP 16; TEMP 36.5; O2SAT 93
--- NOTE | 2017-10-11 20:42 | NUR.NOTE ---
Nursing Note: 10/11/17 19:45 This scribe and FIRE EXTINGUISHER MECHANIC-Luke went in to do assessment and give medications. Patient was inc and was given inc care. Patient wanted female nurse to do wash up instead of FIRE EXTINGUISHER MECHANIC. Patient was informed that FIRE EXTINGUISHER MECHANIC would do inc care while this nurse was in the room. Patient not happy with this but tolerated care.
[2017-10-11] MEDS: Simvastatin 20 MG TAB PO (22:19)
[2017-10-11] MEDS: Melatonin 3 MG TAB 6 MG PO (22:19)
[2017-10-11 22:20] VITALS: BP 112/69; PULSE 73; RESP 16; TEMP 36.1; O2SAT 94
[2017-10-12 07:05] VITALS: BP 119/72; PULSE 61; RESP 18; TEMP 36.1; O2SAT 98
[2017-10-12] MEDS: Docusate Sodium 100 MG CAP PO (08:01)
[2017-10-12] MEDS: Metoprolol 25 MG TAB PO ×2 (08:01→19:26)
[2017-10-12] MEDS: Lithium Carbonate 150 MG CAP PO ×2 (08:01→19:26)
[2017-10-12] MEDS: Fluconazole 150 MG TAB PO (08:01)
[2017-10-12] MEDS: Aspirin E.C. 81 MG TABEC PO (08:01)
[2017-10-12] MEDS: Folic Acid 1 MG TAB PO (08:01)
[2017-10-12] MEDS: lamoTRIgine 25 MG TAB PO (08:01)
[2017-10-12] MEDS: sitaGLIPtin 25 MG TABLET 50 MG PO (08:01)
[2017-10-12] MEDS: Multivitamin TAB 1 TAB PO (08:01)
[2017-10-12] MEDS: Carbidopa 25/Levodopa 100 TAB PO ×3 (08:01→19:26)
[2017-10-12] MEDS: Senna TAB 1 TAB PO (08:01)
--- NOTE | 2017-10-12 09:30 | INPTTR_ITS ---
PHYSICAL THERAPY PROGRESS NOTE Date: 10/12/17 PRECAUTIONS: Fall SUBJECTIVE: Indicated he is doing okay today. OBJECTIVE PAIN: No complaints of pain. BED MOBILITY/TRANSFERS Rolling L/R: I Supine-sit: SBA Sit-supine: SBA Sit-stand: SBA Stand-sit: SBA GAIT Assistive Device WW Weightbearing Full Assist: CGA Distance: 250' with one sit break for 2 minutes at 125' Following lunch, patient performed stair ambulation up/ down 2 - 6' steps and 3 -4' steps with bilateral handrails and SBA of one. THEREX: Performed ankle pumps, LAQs, SLRs and SAQs x 20 reps each. ASSESSMENT: Tolerated today's session well with good effort given. PLAN: Continue with functional exercises for improved ADL activities. TREATMENT CODES/TIME: 9:30 to 9:53 (23'), WALE and 12:10 to 12:20 (10'), WALE Ann, STATISTICAL PROGRAMMER ANALYST
--- NOTE | 2017-10-12 11:23 | PDOC.PROG ---
Date of Service: 10/12/17 Time of Service: 11:23 Assessment/Plan - Assessment/Plan (2) Tinea cruris Assessment: Mild improvement. Plan: Continue Nystatin powder and Fluconazole. Add InterDry Silver Impregnated [employer]. History of Present Illness - History of Present Illness Chief Complaint: No complaints History of Present Illness: Uneventful night. Nursing reports improvement in Tinea Cruris. Review of Systems - Review of Systems Constitutional: denies: Fever, Chills Skin: Rash - Medications/Allergies Allergies/Adverse Reactions: Allergies Allergy/AdvReac Type Severity Reaction Status Date / Time diltiazem Allergy Unknown Unverified 10/01/17 15:00 tetanus toxoid, adsorbed Allergy Unknown Unverified 10/01/17 15:00 Medications: Current Medications Acetaminophen (Tylenol) 650 mg PO Q6H PRN PRN Al Hydrox/Mg Hydrox/Simethicone (Mylanta Liquid) 30 ml PO Q2H PRN PRN Albuterol Sulfate (Proventil Updraft) 2.5 mg UPD Q2H PRN PRN Aspirin (Ecotrin) 81 mg PO DAILY [facility] Last Admin: 10/12/17 08:01 Dose: 81 mg Bisacodyl (Dulcolax Suppository) 10 mg [place] DAILY PRN PRN PRN Reason: Constipation Carbidopa/Levodopa (Sinemet-25/100 Tablet) 1 tab PO TID [facility] Last Admin: 10/12/17 08:01 Dose: 1 tab Cholecalciferol (Vitamin D) 2,000 units PO DAILY [facility] Last Admin: 10/12/17 08:01 Dose: 2,000 units Dextrose (Insta-Glucose) 0 gm PO DIRECTED PRN Dextrose/Water () 0 gm IVP DIRECTED PRN Dimethicone/Zinc Oxide (Tiffanie Protect Cream) 0 gm TP PRN PRN Docusate Sodium (Colace) 100 mg PO TID PRN PRN Last Admin: 10/12/17 08:01 Dose: 100 mg Fluconazole (Diflucan) 150 mg PO DAILY [facility] Stop: 10/15/17 08:31 Last Admin: 10/12/17 08:01 Dose: 150 mg Folic Acid (Folate) 1 mg PO DAILY [facility] Last Admin: 10/12/17 08:01 Dose: 1 mg Glycerin () 1 supp [place] DAILY PRN PRN PRN Reason: Constipation Lamotrigine (Lamictal) 25 mg PO DAILY [facility] Last Admin: 10/12/17 08:01 Dose: 25 mg [place] Carbonate (Eskalith) 150 mg PO BID [facility] Last Admin: 10/12/17 08:01 Dose: 150 mg Magnesium Hydroxide (Milk Of Magnesia) 30 ml PO DAILY PRN PRN Melatonin () 6 mg PO [facility] Last Admin: 10/11/17 22:19 Dose: 6 mg Metoprolol Tartrate (Lopressor) 25 mg PO BID [facility] Last Admin: 10/12/17 08:01 Dose: 25 mg Multivitamins () 1 tab PO DAILY [facility] Last Admin: 10/12/17 08:01 Dose: 1 tab Nystatin (Mycostatin Powder) 0 gm TP BID [facility] Last Admin: 10/12/17 10:35 Dose: Not Given Polyethylene Glycol (Miralax) 17 gm PO DAILY PRN PRN PRN Reason: Constipation Last Admin: 10/10/17 11:10 Dose: 17 gm Sennosides (Senokot) 1 tab PO DAILY [facility] Last Admin: 10/12/17 08:01 Dose: 1 tab Simvastatin (Zocor) 20 mg PO [facility] Last Admin: 10/11/17 22:19 Dose: 20 mg Sitagliptin Phosphate (Januvia) 50 mg PO DAILY [facility] Last Admin: 10/12/17 08:01 Dose: 50 mg Sodium Biphosphate/Sodium Phosphate (Fleet Enema) 133 ml [place] .EVERY 3 DAYS PRN PRN PRN Reason: Constipation White Petrol/Mineral Oil/Lanolin (Eucerin Creme) 0 gm TP PRN PRN Objective - Exam Vitals and I&O: Vital Signs Temp 36.1 C L 10/12/17 07:05 Pulse 61 10/12/17 07:05 Resp 18 10/12/17 07:05 BP 119/72 10/12/17 07:05 Pulse Ox 98 10/12/17 07:05 Intake & Output 10/11/17 10/11/17 10/12/17 11:59 23:59 11:59 Intake Total 360 960 360 Balance 360 960 360 Intake: Oral 360 960 360 Other: Urine Color Pale Yellow Urine Appearance Clear Comment not measured, voided in toilet Voiding Methods Toilet Toilet Toilet General: Alert, Oriented x3, No acute distress Skin: Significant lesion (Bilateral inguinal crevices moist (R>L). Mild burning tenderness with manipulation. Malodorous.) - Results Results: Laboratory Results WBC 7.81 k/cumm (4.4-10.8) 10/08/17 06:12 RBC 4.12 m/cumm (4.50-6.00) L 10/08/17 06:12 Hgb 12.3 g/dL (13.5-17.5) L 10/08/17 06:12 Hct 39.2 % (40.0-50.0) L 10/08/17 06:12 MCV 95.1 fL (80-95) H 10/08/17 06:12 MCH 29.9 pg (27.0-33.0) 10/08/17 06:12 MCHC 31.4 g/dL (32.0-36.0) L 10/08/17 06:12 RDW 13.9 % (11.8-14.1) 10/08/17 06:12 Plt Count 210 x1000/uL (130-400) 10/08/17 06:12 MPV 9.0 fL (8.0-11.0) 10/08/17 06:12 Sodium 145 mmol/L (136-145) 10/08/17 06:12 Potassium 4.0 mmol/L (3.5-5.1) 10/08/17 06:12 Chloride 110 mmol/L (98-107) H 10/08/17 06:12 Carbon Dioxide 25.6 mmol/L (21.0-32.0) 10/08/17 06:12 Anion Gap 9.4 mmol/L (3-11) 10/08/17 06:12 BUN 34 mg/dL (7-18) H 10/08/17 06:12 Creatinine 1.06 mg/dL (0.70-1.30) 10/08/17 06:12 Estimated GFR/1.73 m2 >= 60.00 (mL/min/1.73m2) 10/08/17 06:12 Glucose 135 mg/dL (70-100) H 10/08/17 06:12 Calcium 9.0 mg/dL (8.5-10.1) 10/08/17 06:12 Magnesium 2.1 mg/dL (1.8-2.4) 10/08/17 06:12 Total Bilirubin 0.23 mg/dL (0.2-1.0) 10/08/17 06:12 AST 11 U/L (15-37) L 10/08/17 06:12 ALT 7 U/L (16-63) L 10/08/17 06:12 Alkaline Phosphatase 71 U/L (46-116) 10/08/17 06:12 Total Protein 6.1 g/dL (6.4-8.2) L 10/08/17 06:12 Albumin 2.6 g/dL (3.4-5.0) L 10/08/17 06:12 Vitamin B12 541 pg/mL (193-986) 10/05/17 17:00 Folate 6.2 ng/mL (8.6-20.0) L 10/08/17 06:12 TSH 0.33 uIU/mL (0.358-3.74) L 10/05/17 17:00 Free T4 0.97 ng/dL (0.76-1.46) 10/08/17 06:12 [place] Cancelled 10/11/17 07:30
--- NOTE | 2017-10-12 11:26 | PDOC.PROG_ITS ---
Date of Service: 10/12/17 Time of Service: 11:23 Assessment/Plan - Assessment/Plan (2) Tinea cruris Assessment: Mild improvement. Plan: Continue Nystatin powder and Fluconazole. Add InterDry Silver Impregnated [employer]. History of Present Illness - History of Present Illness Chief Complaint: No complaints History of Present Illness: Uneventful night. Nursing reports improvement in Tinea Cruris. Review of Systems - Review of Systems Constitutional: denies: Fever, Chills Skin: Rash - Medications/Allergies Allergies/Adverse Reactions: Allergies Allergy/AdvReac Type Severity Reaction Status Date / Time diltiazem Allergy Unknown Unverified 10/01/17 15:00 tetanus toxoid, adsorbed Allergy Unknown Unverified 10/01/17 15:00 Medications: Current Medications Acetaminophen (Tylenol) 650 mg PO Q6H PRN PRN Al Hydrox/Mg Hydrox/Simethicone (Mylanta Liquid) 30 ml PO Q2H PRN PRN Albuterol Sulfate (Proventil Updraft) 2.5 mg UPD Q2H PRN PRN Aspirin (Ecotrin) 81 mg PO DAILY [facility] Last Admin: 10/12/17 08:01 Dose: 81 mg Bisacodyl (Dulcolax Suppository) 10 mg [place] DAILY PRN PRN PRN Reason: Constipation Carbidopa/Levodopa (Sinemet-25/100 Tablet) 1 tab PO TID [facility] Last Admin: 10/12/17 08:01 Dose: 1 tab Cholecalciferol (Vitamin D) 2,000 units PO DAILY [facility] Last Admin: 10/12/17 08:01 Dose: 2,000 units Dextrose (Insta-Glucose) 0 gm PO DIRECTED PRN Dextrose/Water () 0 gm IVP DIRECTED PRN Dimethicone/Zinc Oxide (Tiffanie Protect Cream) 0 gm TP PRN PRN Docusate Sodium (Colace) 100 mg PO TID PRN PRN Last Admin: 10/12/17 08:01 Dose: 100 mg Fluconazole (Diflucan) 150 mg PO DAILY [facility] Stop: 10/15/17 08:31 Last Admin: 10/12/17 08:01 Dose: 150 mg Folic Acid (Folate) 1 mg PO DAILY [facility] Last Admin: 10/12/17 08:01 Dose: 1 mg Glycerin () 1 supp [place] DAILY PRN PRN PRN Reason: Constipation Lamotrigine (Lamictal) 25 mg PO DAILY [facility] Last Admin: 10/12/17 08:01 Dose: 25 mg [place] Carbonate (Eskalith) 150 mg PO BID [facility] Last Admin: 10/12/17 08:01 Dose: 150 mg Magnesium Hydroxide (Milk Of Magnesia) 30 ml PO DAILY PRN PRN Melatonin () 6 mg PO [facility] Last Admin: 10/11/17 22:19 Dose: 6 mg Metoprolol Tartrate (Lopressor) 25 mg PO BID [facility] Last Admin: 10/12/17 08:01 Dose: 25 mg Multivitamins () 1 tab PO DAILY [facility] Last Admin: 10/12/17 08:01 Dose: 1 tab Nystatin (Mycostatin Powder) 0 gm TP BID [facility] Last Admin: 10/12/17 10:35 Dose: Not Given Polyethylene Glycol (Miralax) 17 gm PO DAILY PRN PRN PRN Reason: Constipation Last Admin: 10/10/17 11:10 Dose: 17 gm Sennosides (Senokot) 1 tab PO DAILY [facility] Last Admin: 10/12/17 08:01 Dose: 1 tab Simvastatin (Zocor) 20 mg PO [facility] Last Admin: 10/11/17 22:19 Dose: 20 mg Sitagliptin Phosphate (Januvia) 50 mg PO DAILY [facility] Last Admin: 10/12/17 08:01 Dose: 50 mg Sodium Biphosphate/Sodium Phosphate (Fleet Enema) 133 ml [place] .EVERY 3 DAYS PRN PRN PRN Reason: Constipation White Petrol/Mineral Oil/Lanolin (Eucerin Creme) 0 gm TP PRN PRN Objective - Exam Vitals and I&O: Vital Signs Temp 36.1 C L 10/12/17 07:05 Pulse 61 10/12/17 07:05 Resp 18 10/12/17 07:05 BP 119/72 10/12/17 07:05 Pulse Ox 98 10/12/17 07:05 Intake & Output 10/11/17 10/11/17 10/12/17 11:59 23:59 11:59 Intake Total 360 960 360 Balance 360 960 360 Intake: Oral 360 960 360 Other: Urine Color Pale Yellow Urine Appearance Clear Comment not measured, voided in toilet Voiding Methods Toilet Toilet Toilet General: Alert, Oriented x3, No acute distress Skin: Significant lesion (Bilateral inguinal crevices moist (R>L). Mild burning tenderness with manipulation. Malodorous.) - Results Results: Laboratory Results WBC 7.81 k/cumm (4.4-10.8) 10/08/17 06:12 RBC 4.12 m/cumm (4.50-6.00) L 10/08/17 06:12 Hgb 12.3 g/dL (13.5-17.5) L 10/08/17 06:12 Hct 39.2 % (40.0-50.0) L 10/08/17 06:12 MCV 95.1 fL (80-95) H 10/08/17 06:12 MCH 29.9 pg (27.0-33.0) 10/08/17 06:12 MCHC 31.4 g/dL (32.0-36.0) L 10/08/17 06:12 RDW 13.9 % (11.8-14.1) 10/08/17 06:12 Plt Count 210 x1000/uL (130-400) 10/08/17 06:12 MPV 9.0 fL (8.0-11.0) 10/08/17 06:12 Sodium 145 mmol/L (136-145) 10/08/17 06:12 Potassium 4.0 mmol/L (3.5-5.1) 10/08/17 06:12 Chloride 110 mmol/L (98-107) H 10/08/17 06:12 Carbon Dioxide 25.6 mmol/L (21.0-32.0) 10/08/17 06:12 Anion Gap 9.4 mmol/L (3-11) 10/08/17 06:12 BUN 34 mg/dL (7-18) H 10/08/17 06:12 Creatinine 1.06 mg/dL (0.70-1.30) 10/08/17 06:12 Estimated GFR/1.73 m2 >= 60.00 (mL/min/1.73m2) 10/08/17 06:12 Glucose 135 mg/dL (70-100) H 10/08/17 06:12 Calcium 9.0 mg/dL (8.5-10.1) 10/08/17 06:12 Magnesium 2.1 mg/dL (1.8-2.4) 10/08/17 06:12 Total Bilirubin 0.23 mg/dL (0.2-1.0) 10/08/17 06:12 AST 11 U/L (15-37) L 10/08/17 06:12 ALT 7 U/L (16-63) L 10/08/17 06:12 Alkaline Phosphatase 71 U/L (46-116) 10/08/17 06:12 Total Protein 6.1 g/dL (6.4-8.2) L 10/08/17 06:12 Albumin 2.6 g/dL (3.4-5.0) L 10/08/17 06:12 Vitamin B12 541 pg/mL (193-986) 10/05/17 17:00 Folate 6.2 ng/mL (8.6-20.0) L 10/08/17 06:12 TSH 0.33 uIU/mL (0.358-3.74) L 10/05/17 17:00 Free T4 0.97 ng/dL (0.76-1.46) 10/08/17 06:12 [place] Cancelled 10/11/17 07:30
--- NOTE | 2017-10-12 15:00 | NUR.NOTE ---
Nursing Note: GASOLINE TRACTOR OPERATOR Black in to assist w/placement of interdry in Pt's groin for rash; Pt refusing @ this time. Interdry left in room, will offer placement again @ a later time.
[2017-10-12 15:30] VITALS: BP 126/70; PULSE 59; RESP 19; TEMP 36.7; O2SAT 92
[2017-10-12] MEDS: Nystatin POWDER 60 GM JAR TP (19:31)
[2017-10-12] MEDS: Melatonin 3 MG TAB 6 MG PO (19:33)
[2017-10-12] MEDS: Simvastatin 20 MG TAB PO (19:34)
--- NOTE | 2017-10-12 23:31 | NUR.NOTE ---
Nursing Note: Pt has been rude and belligerent towards staff several times this shift. He has been loud and demanding. From the start of the shift, he patient demanded that ALEAH Lenz stay out of his room because I don't like him, I don't trust him, and he put powder on my privates last night and made it worse. Pt rang call sood multiple times and became angry that the call sood did not ring off so he could hear it , then demanded that we make it so that it rang in the room when he pushed the button. Pt was somewhat pleasant and appropriate at times. He took his bedtime medications without incident and fell asleep for a couple hours. Just prior to shift change, it was noted that pt had the entire bed elevated as far as possible, was lying very close to the edge of the bed and was on the phone. He handed the phone to a nurse and stated the state police are on he phone. The state police lieutenant patrol on the line stated that they had a 911 hang up call and wanted to know if there was an emergency. Staff was unable to return the bed back to it's lowest position and it was apparent that the pt. broke the controls on the bed. The bed was removed and replaced with a new bed. During this time, the patient was yelling and swearing at the staff and being resistive to care. He also threatened to strike staff. He had been incontinent of a large amount of urine and had soaked through his pants and the bed linens. Pt up to he bathroom with assist and then returned to bed. The bed controls are locked for patient safety.
--- NOTE | 2017-10-13 04:54 | NUR.NOTE ---
Nursing Note:PT encouraged to go to bathrom to void and change pants and brief r/t to incontinence of urine. While in bathroom pt yelling at staff reluctant to change soiled clothes and wash own joaquin area.After cleaning self was guided back to bed and now sleeping wit bed lock /alarms in place .
[2017-10-13 07:20] VITALS: BP 122/73; PULSE 60; RESP 19; TEMP 35.8; O2SAT 93
[2017-10-13] MEDS: Lithium Carbonate 150 MG CAP PO ×2 (07:47→20:02)
[2017-10-13] MEDS: Fluconazole 150 MG TAB PO (07:47)
[2017-10-13] MEDS: Carbidopa 25/Levodopa 100 TAB PO ×3 (07:48→20:01)
[2017-10-13] MEDS: sitaGLIPtin 25 MG TABLET 50 MG PO (07:48)
[2017-10-13] MEDS: Senna TAB 1 TAB PO (07:48)
[2017-10-13] MEDS: Folic Acid 1 MG TAB PO (07:48)
[2017-10-13] MEDS: Multivitamin TAB 1 TAB PO (07:48)
[2017-10-13] MEDS: lamoTRIgine 25 MG TAB PO (07:48)
[2017-10-13] MEDS: Metoprolol 25 MG TAB PO ×2 (07:48→20:02)
[2017-10-13] MEDS: Aspirin E.C. 81 MG TABEC PO (07:48)
[2017-10-13] MEDS: Nystatin POWDER 60 GM JAR TP ×2 (10:00→20:03)
--- NOTE | 2017-10-13 10:25 | NUR.NOTE ---
Nursing Note: 0800 Pt was very inappropriate overnight, was attempting to call state police and is requesting use of his phone at this time. Pt is yelling and then when this nurse has no reaction, says, I'm sorry I'm just frustrated. CC aware and notified psychiatrist who will be in later this afternoon to reevaluate patient.
--- NOTE | 2017-10-13 11:09 | OTTR_ITS ---
OCCUPATIONAL THERAPY TREATMENT NOTE Date: 10/13/2017 PRECAUTIONS: Standard SUBJECTIVE: Oh god I put them in the wrong holes OBJECTIVE FUNCTIONAL MOBILITY Rolling L/R: I Supine-sit: I Sit-supine: I Sit-stand: I Stand-sit: I Functional mobility within room: S with FWW DRESSING: Lower Extremity: I with pants and socks removing and donning. (patients regular clothes arrived from laundry, thus, able to change) GROOMING: S standing at sink hair and shaving. ASSESSMENT: Patient quite disgruntled when expected to ellen own clothing, however, patient was able without any true physical assist. PLAN: Continue with one more session to ensure I with adls, then d/c OT if no concerns arise. TREATMENT CODES/TIME: 25 mins 12 sct
--- NOTE | 2017-10-13 11:15 | PDOC.CMPRO ---
Date of Service: 10/13/17 Time of Service: 11:15 Care Management Progress Note S/O:CM met with Pritesh in the room he is sitting up in the chair. Pt is thankful for reading glasses and materials to read. Reviewed request for guardian with pt.agrees to voluntary guardianship. CM spoke with Prietsh's sister over the phone she is concerned that he may not do well in a adult family home. Reviewed request for guardianship with sister states she is unable to provide the guardianship. She would like Pritesh to have state appointed guardian. CM to complete paperwork and submit to the court. CM reviewed clinical assessment with she recommends SNF for intermediate manager placement vs a [facility] based on escalating behaviors and level of care. CM placed call to Alina Macias [facility] at [phone] and reviewed recommendations including recent interactions with pt documented by nursing staff. Alina would like to meet with potential family before CM contacts SNF for placement to determine level of care the AF[facility] can provide. Will plan to follow up on Friday. A:72 year old male admitted AMS and Weakness, SB1 PT/OT P:Pt to transition to SB2 on Friday, Pt will be discharged from PT today. Pt would like CM to pursue the potential family placement vs SNF. CM to follow up with Alina Macias in the morning. Pt will continue to be SB2 until placement. CM to submit guardianship application and contact Julian Esteves at [place] guardianship agency.
--- NOTE | 2017-10-13 11:23 | CMPROGNOTE_ITS ---
Date of Service: 10/13/17 Time of Service: 11:15 Care Management Progress Note S/O:CM met with Pritesh in the room he is sitting up in the chair. Pt is thankful for reading glasses and materials to read. Reviewed request for guardian with pt.agrees to voluntary guardianship. CM spoke with Pritesh's sister over the phone she is concerned that he may not do well in a adult family home. Reviewed request for guardianship with sister states she is unable to provide the guardianship. She would like Pritesh to have state appointed guardian. CM to complete paperwork and submit to the court. 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 CM placed call to Alina Macias [facility] at [phone] and reviewed recommendations including recent interactions with pt documented by nursing staff. Alina would like to meet with potential family before CM contacts SNF for placement to determine level of care the AF[facility] can provide. Will plan to follow up on Friday. A:72 year old male admitted AMS and Weakness, SB1 PT/OT P:Pt to transition to SB2 on Friday, Pt will be discharged from PT today. Pt would like CM to pursue the potential family placement vs SNF. CM to follow up with Alina Macias in the morning. Pt will continue to be SB2 until placement. CM to submit guardianship application and contact Julian Esteves at [place] guardianship agency.
--- NOTE | 2017-10-13 11:31 | INPTTR_ITS ---
PHYSICAL THERAPY PROGRESS NOTE Date: 10/13/2017 PRECAUTIONS: fall precautions SUBJECTIVE: Pt was up standing in doorway, fall alarm was going off, pt agreeable to PT treatment. Pt instructed not to mobilize independently without nursing assistance to prevent falls. OBJECTIVE PAIN: no c/o pain BED MOBILITY/TRANSFERS Stand-sit: FWW, supervision Sit-Stand: FWW, supervision GAIT Pt walked 300 ft with FWW, SBA with 2 seated rest breaks. Pt required cues to look straight ahead and stand erect, responded well to demonstration by the therapist of correct form to use when walking with the FWW. Pt educated on importance using correct mechanics and staying focused when walking with the FWW. Pt left in chair with fall alarm activated. ASSESSMENT: Pt demonstrated improved gait mechanics with the walker after demonstration of correct form by the therapist, but continues to require cues throughout the session to stand erect and look straight ahead. Pt will benefit from progressive gait training and UE and LE strengthening. PLAN: Progress gait training TREATMENT CODES/TIME: 15 min TA x1 11:28 Jenna Unger SPT under direct supervision of Evelyn Dey PT
--- NOTE | 2017-10-13 13:27 | PDOC.PSYFU ---
Follow Up: FOLLOW UP PSYCHIATRY CONSULTATION: Overnight Events: - nursing reports pt had inappropriate and difficult behaviors such as raising the bed too high so that it got stuck and broke, calling state police from his phone, nursing sees some of this behavior as volitional. - PT reports pt has met his physical therapy goals, can walk 300ft with walker assist - pt did get reading glasses and has been using them to read magazines. Meds: seroquel stopped without significant changes to behaviors. Pt has been taking all medications as prescribed Subjective: - pt reports feeling well in body and mind - denies worsening tremor, nausea, instability - pt reports enjoying reading any reading materials brought to him including magazines but he would also like books. - pt reports wanting to find a place to live outside the hospital. He would like to go hunting, thinks he could go hunting if someone brought him to a spot where he could sit. Says his niece has his guns because he wasn't allowed to have them in his most recent placement. - pt reports being incontinent due to prostate cancer and can't get to bathroom in time with assistance REVIEW OF SYSTEMS: Constitutional: feels well Psych: as noted above Allergies: as noted in chart and reviewed in this visit Neuro: - no worsening tremor which is mostly course, no fine tremor typical of lithium evident. Gait not assessed as pt seated in chair with alarm set. MENTAL STATUS EXAM: Constitutional: appears in no acute distress Attitude: cooperative Psychomotor: no retardation or agitation Speech: nonpressured, normal volume and prosody. No articulation problems noted. Associations: no looseness Thought process: a bit slow, tangential Thought content without psychosis, delusions, obsessions No suicidal or homicidal ideations Hallucinations denied Mood: improving Affect: full, euthymic, calm Attention/Concentration: poor Judgment/insight: very poor Oriented to self and place and looks to white board for coaching on date Language appropriate to age and education Fund of knowledge appropriate to age and education Memory poor to recent events - repeats stories in the same 15 minute conversation Other cognitive testing: none Assessment/Recommendations: Dementia: poor judgment and hypersexual features consistent with this, as is the poor short-term memory. - behavioral interventions such as good reading materials, walks on the unit, clear verbal boundaries, limiting access to phone, and male staff present in his care as much as possible are all potentially helpful - he will mostly likely do better in a SNF placement than in a home with a couple as his needs for physical care and for behavioral interventions may tax the usual home placement. Bipolar affective disorder: well controlled - continue lithium 150mg twice daily - lithium trough tomorrow morning before morning dose of lithium - continue lamotrigine titration - I agree with stopping seroquel Visit Statistics Total Visit Minutes: 25 minutes with 15 minutes in face to face contact with patient Visit Time Allocation >50% of face to face visit spent in counseling (Extensive teaching, explanation and instructions. Counseling as appropriate. Review of plans, and discussion concerning medical problems dealt with at this visit. Discussion of benefits/risks of treatment, anticipated course of events, potential medication side effects, options, alternatives, and follow up plans. Questions were solicited and answered, and the patient verbalized understanding.), and/or coordination of care.
--- NOTE | 2017-10-13 14:07 | INDS_ITS ---
PHYSICAL THERAPY INPATIENT DISCHARGE NOTE Date: 10/13/17 Dates of Service: 10/03/17-10/13/17 Precautions: Fall Precautions SUBJECTIVE: Pt asleep in bed, agreeable to PT treatment upon waking by name. OBJECTIVE: BED MOBILITY/TRANSFERS: Supine-Sit: HOB flat, independent Sit-stand: FWW, independent Stand-sit: FWW, independent Sit-supine: HOB flat, independent GAIT: SBA with FWW 250 ft with 1 seated break. Pt positioned in bed, fall alarm activated. BALANCE: Static sitting: normal Dynamic Sitting: normal Static Standing: fair Dynamic Standing: fair ASSESSMENT: Pt is a 72yr old male admitted with generalized weakness, gait instability and urinary incontinence in setting of Schizophrenia, Bipolar Disorder, right basal ganglia lacunar infarct, chronic kidney disease, diabetes mellitus type II, obesity, chronic obstructive pulmonary disease, peripheral vascular disease, osteoarthritis. Pt progressed from SBA to independent with sit -supine and supine-sit transfers, SBA to independent sit with-stand, stand-sit, and chair-bed transfers, progressed gait training from 20 ft to 300 ft with 2 seated rests, and is able to go up/down 2 stairs with railing SBA. Pt has met all goals and is at maintenance level for functional mobility. Recommend pt mobilize with FWW with nursing staff in hallways. GOALS Goals x1 week 1. Supine-sit: HOB flat, independent 2. Sit-Supine HOB flat, independent 3. Sit-Stand: SBA with FWW 4. Stand-sit: supervision 5. Bed-chair supervision with FWW 6. Chair-bed supervision with FWW 7. Gait: SBA with FWW 150ft 8. Stairs: up/down 2 steps with railing SBA Goals met: #1, 2, 3, 4, 5, 6, 7, 8 DISCHARGE RECOMMENDATIONS intermediate frame tender care facility vs. return to home with caregiver D/C skilled PT services- nursing to mobilize with FWW TREATMENT TIME/MINUTES/CODES 10 min [id number] Jenna Unger SPT under direct supervision of Evelyn Dey PT
[2017-10-13 15:28] VITALS: BP 155/97; PULSE 73; RESP 20; TEMP 36.6; O2SAT 98
[2017-10-13] MEDS: Simvastatin 20 MG TAB PO (20:01)
[2017-10-13] MEDS: Melatonin 3 MG TAB 6 MG PO (20:01)
[2017-10-14 00:35] VITALS: BP 154/77; PULSE 71; RESP 22; TEMP 36; O2SAT 97
[2017-10-14 06:38] LABS: Anion Gap 3.5 mmol/L (3-11); BUN 40 mg/dL (7-18); CO2 30.5 mmol/L (21.0-32.0); CREATININE 1.26 mg/dL (0.70-1.30); Calcium 9.7 mg/dL (8.5-10.1); Chloride 107 mmol/L (98-107); Estimated GFR 56.26 (mL/min/1.73m2); Glucose 143 mg/dL (70-100); Potassium 4.5 mmol/L (3.5-5.1); Sodium 141 mmol/L (136-145)
[2017-10-14 07:10] VITALS: BP 120/65; PULSE 79; RESP 18; TEMP 36.1; O2SAT 98
[2017-10-14 07:13] LABS: Lithium 0.43 mmol/L (0.60-1.20)
--- NOTE | 2017-10-14 08:09 | OTDS_ITS ---
OCCUPATIONAL THERAPY DISCHARGE SUMMARY Date: 10/14/17 Precautions: Fall Precautions PATIENT PROFILE/ADMITTING DIAGNOSIS: Pt is a 72yr old male admitted with generalized weakness, gait instability and urinary incontinence, transferred to SWING bed program for rehab PMHX: Schizophrenia, Bipolar Disorder, right basal ganglia lacunar infarct, chronic kidney disease, diabetes mellitus type II, obesity, chronic obstructive pulmonary disease, peripheral vascular disease, osteoarthritis, hypertension and prostate cancer Social History/Home Situation: Lives in a a private fpc with Haylie Arana , 1 step to enter. Per chart caregiver states she can no longer care for him at home. Per patient his baseline mobility is independent transfers and gait with 4WW, independent with ADLS. Equipment owned/DME: 4WW OBJECTIVE: Mental Status: A& O to name, place. Pain: no c/o pain ROM: RUE: AROM shoulder flexion to 100, elbow and wrist WNL LUE AROM shoulder flexion to 110, elbow and wrist WNL STRENGTH: RUE: shoulder flexion 3/5, bicep 4/5, opera singer 5/5 LUE shoulder flexion 3/5, bicep 4/5, opera singer 5/5 FUNCTIONAL MOBILITY/ADLS: Transfers Sit-Stand I Stand-sit I bed mobility I Transfers I BATHING Seated/ standing in shower. Bathing UE S with v/cs ONLY for thoroughness. Bathing LE S. v/cs ONLY for thoroughness. DRESSING Dressing UE I Dressing LE I TOILETING S in hospital for ambulation. EATING I ASSESSMENT: Patient is a 72 -year-old male, referred to occupational therapy services with diagnosis of generalized weakness, gait instability and urinary incontinence, . Patient appears to be at baseline according to history provided. Patient will continue with maintenance with nursing. GOALS Goals x1 week Met 1. Transfers I in hospital setting for adls. 2. Dressing I in hospital setting. 3. Bathing S with v/cs for thoroughness only. 4. Toileting I in hospital setting. Met, however, due to policies, patient supervised for ambulation to bathroom
[2017-10-14] MEDS: sitaGLIPtin 25 MG TABLET 50 MG PO (08:18)
[2017-10-14] MEDS: Senna TAB 1 TAB PO (08:18)
[2017-10-14] MEDS: Carbidopa 25/Levodopa 100 TAB PO ×3 (08:18→20:07)
[2017-10-14] MEDS: Fluconazole 150 MG TAB PO (08:18)
[2017-10-14] MEDS: Lithium Carbonate 150 MG CAP PO ×2 (08:18→20:07)
[2017-10-14] MEDS: lamoTRIgine 25 MG TAB PO (08:18)
[2017-10-14] MEDS: Metoprolol 25 MG TAB PO ×2 (08:18→20:07)
[2017-10-14] MEDS: Folic Acid 1 MG TAB PO (08:19)
[2017-10-14] MEDS: Aspirin E.C. 81 MG TABEC PO (08:19)
[2017-10-14] MEDS: Multivitamin TAB 1 TAB PO (08:19)
[2017-10-14] MEDS: Nystatin POWDER 60 GM JAR TP (09:10)
--- NOTE | 2017-10-14 09:41 | PDOC.PSYFU ---
Follow Up: FOLLOW UP psychiatry consultation: Overnight events: - lithium trough 0.46 - no severe behavioral dysregulation, some agitation around medication handled well by nursing and pt reportedly apologized for his behavior. - taking all medications as prescribed - sleeping well Subjective: - pt reports his mood is up - pt reports looking forward to nursing putting powder on his groin it is very pleasurable - pt reports sleeping well last night - pt reports enjoying reading food magazine REVIEW OF SYSTEMS: Constitutional: feels well Psych: as noted above Allergies: as noted in chart and reviewed in this visit MENTAL STATUS EXAM: Constitutional: appears in no acute distress, stated age, dressed in hospital clothing Attitude: cooperative, a bit inappropriate blowing me a kiss when I left his room. Psychomotor: no retardation or agitation Speech: nonpressured, normal volume and prosody. No articulation problems noted. Associations: no looseness Thought process: slowed, tangential at times, goal directed toward female contact Thought content without psychosis, delusions, obsessions, but with hypersexual content. No suicidal or homicidal ideations Hallucinations denied Mood: up Affect: euthymic, calm, without evidence of hypomania Attention/Concentration: poor Judgment/insight: very poor Oriented self and place, uses white board for reference for date Language appropriate to age and education Fund of knowledge appropriate to age and education Memory poor Other cognitive testing: none Assessment/Recommendations: Dementia. Hypersexual features consistent with dementia rather than bipolar. I discussed with staff his eagerness for treatment of groin area and recommended that a male staff be present during his care. Bipolar disorder - lithium level a bit subtherapeutic at 0.4 but very good for his age. Continue current dose of 150mg twice dialy - no evidence of hypo/travis such as reduced sleep, increased goal directed activities, hallucinations, grandiosity or other signs of travis - continue lamotrigine titration with increase to 50mg daily on the . Placement: - given his nursing care needs and his hypersexualized behaviors he might be better served in a SNF with multiple staff members rather than a home setting. Care management to continue working on placement. I will continue to be involved in his care while he is here at [facility]. Visit Statistics Total Visit Minutes: 20 minutes, 12 minutes with patient, 8 minutes with staff in discussing his care. Visit Time Allocation >50% of face to face visit spent in counseling (Extensive teaching, explanation and instructions. Counseling as appropriate. Review of plans, and discussion concerning medical problems dealt with at this visit. Discussion of benefits/risks of treatment, anticipated course of events, potential medication side effects, options, alternatives, and follow up plans. Questions were solicited and answered, and the patient verbalized understanding.), and/or coordination of care.
--- NOTE | 2017-10-14 09:55 | NUR.NOTE ---
Nursing Note: Patient needed butch care done. Went into room and patient stated he wanted BACON SLICER Michelle to clean him. We notified the patient per MD that a male is to do butch care. Patient was given the option to either have male clean butch area or he was more than able to do it himself. Patients than got aggravated and tossed his walker forward. He was than told he is noticeably getting aggressive and i would like to know what it is that he is so upset about. He said well I guess I am just to suppose to let a queer do it. I than told him his comments are inappropriate and he needed to refrain from his comments. Patient than took it upon himself to clean and powder himself. Patient is now in bed and resting. Patient expresses no further needs at this time.
--- NOTE | 2017-10-14 11:16 | PDOC.CMPRO ---
Date of Service: 10/14/17 Time of Service: 11:16 Care Management Progress Note S/O: CM met with patient at the bedside he is lying in bed he is conversing and slightly confused today. Provided Pt with activities at the bedside including crosswords puzzles. Pt to be transition to SB2 today he is no longer receiving PT. Reviewed with primary nurse who will assist pt with ambulation. CM reviewed case with Julian Esteves today to request need for guardianship. Pt has a DPOA on file Gianna Duran and is able to make decisions on his behalf. Julian does not feel seeking guardianship would be supported at this time. CM contacted [facility] director and is awaiting for call back. A:72 year old male admitted AMS and Weakness, SB1 PT/OT P:Pt to transition to SB2 on today. Pt would like CM to pursue the potential family placement vs SNF. CM to follow up with Alina Macias related to [facility] home. Pt will continue to be SB2 until placement. Hold off on guardianship application per Julian Esteves and will follow up with with agencies r/t placement and [facility].
[2017-10-14 15:30] VITALS: BP 126/76; PULSE 59; RESP 18; TEMP 36.3; O2SAT 98
--- NOTE | 2017-10-14 16:08 | NUR.NOTE ---
Nursing Note: Pt has had multiple discussions today with Brant GAYTAN regarding his inappropriate behavior towards women sexually and towards men threateningly. Pt states he is agreeable to care plan until care is to be provided. Male DIRECTOR ACUTE requested this nurse's presence to see if Pt would be less hostile which was not the case. Immediately upon entering the room, the DIRECTOR ACUTE said good afternoon and his greeting was met with verbal aggression: Get the hell out of my room, I don't want you anywhere near me! This went on for approximately five minutes in which this nurse reiterated the care plan set forth by Dr. Newell and case management. Pt does not seem to respond while male caregiver remains in the room, and he is very fixated on the idea of men staying away from applying powder and providing butch-care. This was stressed, again, that the Pt has the right to do these activities himself otherwise a male will do so due to his hyper-sexual attitudes toward women.
--- NOTE | 2017-10-15 07:12 | NUR.NOTE ---
Nursing Note: patient called out and requested to have a shirt to put on. ALEAH Martinez requested ALEAH Vilchis community relations assistant on doing AM care of patient. All washing is encouraged to be done independently. While in the process of ADLS Patient stated that he would like to apologies for his behavior yesterday. ALEAH Vilchis stated today is a new day and all is forgiven. Patient only needed community relations assistant with getting pants up. Patient did very well at ADLS with minimal assist. Patient is in chair and has no further needs at this time.
[2017-10-15 07:20] VITALS: BP 126/65; PULSE 64; RESP 18; TEMP 36.6; O2SAT 96
[2017-10-15] MEDS: Nystatin POWDER 60 GM JAR TP ×2 (07:35→20:43)
[2017-10-15] MEDS: Fluconazole 150 MG TAB PO (07:53)
[2017-10-15] MEDS: Lithium Carbonate 150 MG CAP PO ×2 (07:54→19:57)
[2017-10-15] MEDS: Multivitamin TAB 1 TAB PO (07:54)
[2017-10-15] MEDS: Senna TAB 1 TAB PO (07:54)
[2017-10-15] MEDS: sitaGLIPtin 25 MG TABLET 50 MG PO (07:54)
[2017-10-15] MEDS: Folic Acid 1 MG TAB PO (07:54)
[2017-10-15] MEDS: lamoTRIgine 25 MG TAB PO (07:54)
[2017-10-15] MEDS: Aspirin E.C. 81 MG TABEC PO (07:54)
[2017-10-15] MEDS: Carbidopa 25/Levodopa 100 TAB PO ×3 (07:54→19:57)
[2017-10-15] MEDS: Metoprolol 25 MG TAB PO ×2 (07:54→19:57)
--- NOTE | 2017-10-15 09:40 | NUR.NOTE ---
Nursing Note: 10/15/17 0941 Pt making eye contact. Pt behavior appropriate. Pt expressed some frustration with number of pills taken in am, however stated that it was not this nurse's fault. No inappropriate behaviors exhibited at this time.
--- NOTE | 2017-10-15 13:45 | PDOC.CMPRO ---
Date of Service: 10/15/17 Time of Service: 13:45 Care Management Progress Note S/O: CM met with Salome HERNANDEZ from [facility], she brought Pt his clothes and glasses. Pt was alert and thankful for his belongings. CM spoke with Director of [employer] [facility] Alina she is arranging for Pt to do a home visit with [facility] home mid week next week. He will have one day visit then if it goes well transition to their home multimedia production assistant. Agency is closed on Friday and will follow up with CM on Friday to confirm date. A: Pritesh is a 72 year old male admitted for AMS who is now SB2 awaiting placement to [facility] home through agency. P:Pt will continue to be SB2 until placement. LUCILA addressed appropriate boundaries with Pt. and he agrees to the following; When a male SANDBLAST OR SHOTBLAST EQUIPMENT TENDER is available he will provide assistance with ADLs' Pt goal is to return to [facility] home and will need to be independent with hygiene. Pt will apply his own creams and lotions to butch area if physically able.
--- NOTE | 2017-10-15 14:02 | CMPROGNOTE_ITS ---
Date of Service: 10/15/17 Time of Service: 13:45 Care Management Progress Note S/O: CM met with Salome HERNANDEZ from [employer], she brought Pt his clothes and glasses. Pt was alert and thankful for his belongings. CM spoke with Director of [employer] Alina she is arranging for Pt to do a home visit with [facility] home mid week next week. He will have one day visit then if it goes well transition to their home time lock expert. Agency is closed on Friday and will follow up with CM on Friday to confirm date. A: Pritesh is a 72 year old male admitted for AMS who is now SB2 awaiting placement to [facility] home through agency. P:Pt will continue to be SB2 until placement. LUCILA addressed appropriate boundaries with Pt. and he agrees to the following; When a male BARK PRESS OPERATOR is available he will provide assistance with ADLs' Pt goal is to return to [facility] home and will need to be independent with hygiene. Pt will apply his own creams and lotions to butch area if physically able.
[2017-10-15 15:25] VITALS: BP 122/67; PULSE 58; RESP 18; TEMP 36.5; O2SAT 95
[2017-10-15] MEDS: Simvastatin 20 MG TAB PO (19:57)
[2017-10-15] MEDS: Melatonin 3 MG TAB 6 MG PO (19:57)
[2017-10-16 03:15] VITALS: BP 132/84; PULSE 74; RESP 17; TEMP 36.4; O2SAT 97
[2017-10-16 07:25] VITALS: BP 123/64; PULSE 60; RESP 18; TEMP 36.2; O2SAT 98
[2017-10-16] MEDS: Senna TAB 1 TAB PO (08:28)
[2017-10-16] MEDS: sitaGLIPtin 25 MG TABLET 50 MG PO (08:28)
[2017-10-16] MEDS: Folic Acid 1 MG TAB PO (08:28)
[2017-10-16] MEDS: Aspirin E.C. 81 MG TABEC PO (08:29)
[2017-10-16] MEDS: lamoTRIgine 25 MG TAB PO (08:29)
[2017-10-16] MEDS: Lithium Carbonate 150 MG CAP PO (08:29)
[2017-10-16] MEDS: Carbidopa 25/Levodopa 100 TAB PO ×2 (08:29→14:01)
[2017-10-16] MEDS: Metoprolol 25 MG TAB PO (08:29)
[2017-10-16] MEDS: Multivitamin TAB 1 TAB PO (08:29)
[2017-10-16] MEDS: Nystatin POWDER 60 GM JAR TP (13:02)
--- NOTE | 2017-10-16 15:18 | PDOC.CMACT ---
Date of Service: 10/16/17 Time of Service: 15:18 Care Management Activity Note Pritesh was able to meet with director of community services Salome Mayers this week and receive his clothes and own reading glasses from home. Pritesh has been reading magazines brought into the room and is trying some coloring this week. He is looking forward to a home visit with potential family this coming week. Pritesh is taking with his sister over the phone twice a day and enjoys his conversations with her. Pritesh is looking forward to having a shower today and putting on a new outfit brought from home. Pt offered activities from [employer] including coloring and crossword puzzles.
--- NOTE | 2017-10-16 15:22 | CMACTNOTE_ITS ---
Date of Service: 10/16/17 Time of Service: 15:18 Care Management Activity Note Pritesh was able to meet with community affairs director Salome Mayers this week and receive his clothes and own reading glasses from home. Pritesh has been reading magazines brought into the room and is trying some coloring this week. He is looking forward to a home visit with potential family this coming week. Pritesh is taking with his sister over the phone twice a day and enjoys his conversations with her. Pritesh is looking forward to having a shower today and putting on a new outfit brought from home. Pt offered activities from [employer] including coloring and crossword puzzles.
[2017-10-16 16:12] VITALS: BP 123/70; PULSE 54; RESP 18; TEMP 36.5; O2SAT 93
[2017-10-16 21:00] VITALS: BP 119/63; PULSE 68; RESP 17; TEMP 36.9; O2SAT 97
[2017-10-17 07:20] VITALS: BP 132/68; PULSE 58; RESP 18; TEMP 36; O2SAT 98
[2017-10-17] MEDS: Aspirin E.C. 81 MG TABEC PO (08:40)
[2017-10-17] MEDS: lamoTRIgine 25 MG TAB PO (08:41)
[2017-10-17] MEDS: Senna TAB 1 TAB PO (08:41)
[2017-10-17] MEDS: sitaGLIPtin 25 MG TABLET 50 MG PO (08:41)
[2017-10-17] MEDS: Carbidopa 25/Levodopa 100 TAB PO ×3 (08:41→19:26)
[2017-10-17] MEDS: Multivitamin TAB 1 TAB PO (08:41)
[2017-10-17] MEDS: Lithium Carbonate 150 MG CAP PO ×2 (08:41→19:26)
[2017-10-17] MEDS: Folic Acid 1 MG TAB PO (08:42)
[2017-10-17] MEDS: Metoprolol 25 MG TAB PO ×2 (08:42→19:26)
[2017-10-17] MEDS: Nystatin POWDER 60 GM JAR TP ×2 (08:43→19:32)
[2017-10-17 15:15] VITALS: BP 139/87; PULSE 59; RESP 19; TEMP 36.5; O2SAT 96
[2017-10-17 19:24] VITALS: BP 133/75; PULSE 71; RESP 16; TEMP 36.9; O2SAT 96
[2017-10-17] MEDS: Melatonin 3 MG TAB 6 MG PO (19:26)
[2017-10-17] MEDS: Simvastatin 20 MG TAB PO (19:26)
[2017-10-18 03:59] VITALS: BP 141/74; PULSE 66; RESP 18; TEMP 35.2; O2SAT 98
[2017-10-18 07:15] VITALS: BP 146/74; PULSE 58; RESP 22; TEMP 36.4; O2SAT 94
[2017-10-18] MEDS: Lithium Carbonate 150 MG CAP PO ×2 (08:55→19:39)
[2017-10-18] MEDS: Senna TAB 1 TAB PO (08:55)
[2017-10-18] MEDS: Folic Acid 1 MG TAB PO (08:55)
[2017-10-18] MEDS: sitaGLIPtin 25 MG TABLET 50 MG PO (08:55)
[2017-10-18] MEDS: Carbidopa 25/Levodopa 100 TAB PO ×3 (08:56→19:40)
[2017-10-18] MEDS: Multivitamin TAB 1 TAB PO (08:56)
[2017-10-18] MEDS: lamoTRIgine 25 MG TAB 50 MG PO (08:56)
[2017-10-18 08:57] VITALS: PULSE 60
[2017-10-18] MEDS: Aspirin E.C. 81 MG TABEC PO (08:57)
[2017-10-18] MEDS: Metoprolol 25 MG TAB PO ×2 (08:57→19:41)
[2017-10-18] MEDS: Nystatin POWDER 60 GM JAR TP ×2 (08:58→19:39)
[2017-10-18 15:45] VITALS: BP 130/79; PULSE 58; RESP 18; TEMP 36.8; O2SAT 95
[2017-10-18] MEDS: Simvastatin 20 MG TAB PO (19:41)
[2017-10-18 19:50] VITALS: BP 153/72; PULSE 69; RESP 17; TEMP 37; O2SAT 99
--- NOTE | 2017-10-18 19:58 | NUR.NOTE ---
pt made inapprpriate comment to nurse regaurding apperance. pt stated that he had and gone to [facility], I am very irena you are cute, can I touch you? nurse told him that this was not appropriate. pt stopped and allowed nurse to continue assessment.
[2017-10-18] MEDS: Melatonin 3 MG TAB 6 MG PO (20:37)
[2017-10-19 06:15] VITALS: BP 157/84; PULSE 65; RESP 19; TEMP 36.5; O2SAT 96
[2017-10-19 07:40] VITALS: BP 131/72; PULSE 64; RESP 20; TEMP 36.3; O2SAT 97
[2017-10-19] MEDS: sitaGLIPtin 25 MG TABLET 50 MG PO (09:07)
[2017-10-19] MEDS: Senna TAB 1 TAB PO (09:07)
[2017-10-19] MEDS: Carbidopa 25/Levodopa 100 TAB PO ×2 (09:07→20:27)
[2017-10-19] MEDS: Aspirin E.C. 81 MG TABEC PO (09:07)
[2017-10-19] MEDS: Folic Acid 1 MG TAB PO (09:07)
[2017-10-19] MEDS: Metoprolol 25 MG TAB PO ×2 (09:07→20:27)
[2017-10-19] MEDS: Multivitamin TAB 1 TAB PO (09:07)
[2017-10-19] MEDS: lamoTRIgine 25 MG TAB 50 MG PO (09:07)
[2017-10-19] MEDS: Lithium Carbonate 150 MG CAP PO ×2 (09:07→20:27)
[2017-10-19] MEDS: Nystatin POWDER 60 GM JAR TP ×2 (09:18→20:28)
[2017-10-19 16:05] VITALS: BP 143/76; PULSE 64; RESP 20; TEMP 36.7; O2SAT 98
[2017-10-19] MEDS: Melatonin 3 MG TAB 6 MG PO (20:27)
[2017-10-19] MEDS: Simvastatin 20 MG TAB PO (20:27)
[2017-10-19 20:32] VITALS: BP 149/68; PULSE 72; RESP 19; TEMP 36.8; O2SAT 94
--- NOTE | 2017-10-19 21:10 | NUR.NOTE ---
Nursing Note: Over several occasions with the pt. he became hostile towards this male EMERGENCY ROOM RN with no reason other then he is a man. He repeatedly called this EMERGENCY ROOM RN a asshole, and motherfucker and other vulgar names. This EMERGENCY ROOM RN was asked by RN to provide care. Pt. screamed for this EMERGENCY ROOM RN to leave his room when the pt. was on the toilet. There wasn't any other staff present at the time. The PT. threw his walker at this EMERGENCY ROOM RN. The EMERGENCY ROOM RN took the walker and didn't reply to any of the Negative remarks. This EMERGENCY ROOM RN only said Please stop yelling. I have a brief for you. at this time the yelling from the pt. was so loud that a RN entered the room and relieved this EMERGENCY ROOM RN.
[2017-10-20 03:18] VITALS: BP 152/93; PULSE 69; RESP 20; TEMP 36.4; O2SAT 97
[2017-10-20 07:21] VITALS: BP 126/60; PULSE 59; RESP 18; TEMP 36.1; O2SAT 96
[2017-10-20] MEDS: Metoprolol 25 MG TAB PO ×2 (07:30→20:14)
[2017-10-20] MEDS: Carbidopa 25/Levodopa 100 TAB PO ×3 (07:30→20:15)
[2017-10-20] MEDS: Folic Acid 1 MG TAB PO (07:30)
[2017-10-20] MEDS: Multivitamin TAB 1 TAB PO (07:30)
[2017-10-20] MEDS: Senna TAB 1 TAB PO (07:30)
[2017-10-20] MEDS: sitaGLIPtin 25 MG TABLET 50 MG PO (07:30)
[2017-10-20] MEDS: lamoTRIgine 25 MG TAB 50 MG PO (07:30)
[2017-10-20] MEDS: Aspirin E.C. 81 MG TABEC PO (07:30)
[2017-10-20] MEDS: Lithium Carbonate 150 MG CAP PO ×2 (07:30→20:15)
[2017-10-20] MEDS: Nystatin POWDER 60 GM JAR TP ×2 (07:31→20:15)
--- NOTE | 2017-10-20 09:43 | NUR.NOTE ---
Nursing Note: Patient needed AM ADLS to be done. ALEAH Churchill and ALEAH Vilchis walked into room and asked patient if he would like to clean himself up. Patient agreed and performed all ADLS with stand by assist. Patient performed butch care and applied powder to butch area all independently. no issues at this time.
[2017-10-20 16:55] VITALS: BP 137/83; PULSE 64; RESP 18; TEMP 37; O2SAT 96
[2017-10-20] MEDS: Simvastatin 20 MG TAB PO (20:14)
[2017-10-20] MEDS: Melatonin 3 MG TAB 6 MG PO (20:14)
[2017-10-21 07:25] VITALS: BP 133/73; PULSE 78; RESP 18; TEMP 36.1; O2SAT 99
[2017-10-21] MEDS: lamoTRIgine 25 MG TAB 50 MG PO (07:52)
[2017-10-21] MEDS: Aspirin E.C. 81 MG TABEC PO (07:52)
[2017-10-21] MEDS: Senna TAB 1 TAB PO (07:52)
[2017-10-21] MEDS: Lithium Carbonate 150 MG CAP PO ×2 (07:52→20:16)
[2017-10-21] MEDS: Folic Acid 1 MG TAB PO (07:52)
[2017-10-21] MEDS: Metoprolol 25 MG TAB PO ×2 (07:52→20:16)
[2017-10-21] MEDS: sitaGLIPtin 25 MG TABLET 50 MG PO (07:52)
[2017-10-21] MEDS: Multivitamin TAB 1 TAB PO (07:52)
[2017-10-21] MEDS: Carbidopa 25/Levodopa 100 TAB PO ×3 (07:52→20:16)
[2017-10-21] MEDS: Nystatin POWDER 60 GM JAR TP ×2 (10:00→20:17)
[2017-10-21 15:40] VITALS: BP 125/78; PULSE 64; RESP 18; TEMP 36.8; O2SAT 97
--- NOTE | 2017-10-21 15:55 | PDOC.CMPRO ---
Care Management Progress Note S/O: Sitting up in his chair watching TV. Smiling and readily engaged in conversation. Stated he would like to have a typewriter. He learned to type in school and thought it would be easier than trying to write everything down on paper. Looking forward to going out to visit a possible home placement tomorrow. A: 72 yo male admitted to 2 awaiting placement in an Adult Community [facility]. P: Masood Shah ([phone]) will be here tomorrow morning between 9:30-10:00 and transport Pritesh to his home to visit for the day as part of the potential home placement process. Masood will bring Pritesh back to [facility] around 3pm.
--- NOTE | 2017-10-21 16:03 | CMPROGNOTE_ITS ---
Care Management Progress Note S/O: Sitting up in his chair watching TV. Smiling and readily engaged in conversation. Stated he would like to have a typewriter. He learned to type in school and thought it would be easier than trying to write everything down on paper. Looking forward to going out to visit a possible home placement tomorrow. A: 72 yo male admitted to 2 awaiting placement in an Adult Community [facility]. P: Masood Shah ([phone]) will be here tomorrow morning between 9:30-10: 00 and transport Pritesh to his home to visit for the day as part of the potential home placement process. Masood will bring Pritesh back to [facility] around 3pm.
[2017-10-21] MEDS: Melatonin 3 MG TAB 6 MG PO (20:22)
[2017-10-21] MEDS: Simvastatin 20 MG TAB PO (20:22)
[2017-10-21 20:51] VITALS: BP 178/104; PULSE 74
[2017-10-22 01:12] VITALS: BP 163/145; PULSE 66; RESP 12; TEMP 36.5; O2SAT 98
[2017-10-22 07:23] VITALS: BP 122/73; PULSE 64; RESP 18; TEMP 36.1; O2SAT 99
[2017-10-22 07:23] LABS: BUN 33 mg/dL (7-18); CREATININE 1.23 mg/dL (0.70-1.30); Chloride 110 mmol/L (98-107); Estimated GFR 57.84 (mL/min/1.73m2); Glucose 136 mg/dL (70-100); Potassium 4.2 mmol/L (3.5-5.1); Sodium 143 mmol/L (136-145)
[2017-10-22 07:29] LABS: Lithium 0.48 mmol/L (0.60-1.20)
[2017-10-22] MEDS: sitaGLIPtin 25 MG TABLET 50 MG PO (07:52)
[2017-10-22] MEDS: lamoTRIgine 25 MG TAB 50 MG PO (07:53)
[2017-10-22] MEDS: Metoprolol 25 MG TAB PO ×2 (07:53→20:33)
[2017-10-22] MEDS: Multivitamin TAB 1 TAB PO (07:53)
[2017-10-22] MEDS: Senna TAB 1 TAB PO (07:53)
[2017-10-22] MEDS: Folic Acid 1 MG TAB PO (07:53)
[2017-10-22] MEDS: Aspirin E.C. 81 MG TABEC PO (07:53)
[2017-10-22] MEDS: Carbidopa 25/Levodopa 100 TAB PO ×2 (07:53→20:33)
[2017-10-22] MEDS: Lithium Carbonate 150 MG CAP PO ×2 (07:53→20:32)
[2017-10-22 15:27] VITALS: BP 135/73; PULSE 54; RESP 20; TEMP 36.2; O2SAT 92
[2017-10-22 20:31] VITALS: BP 143/79; PULSE 73; RESP 16; TEMP 36.9; O2SAT 97
[2017-10-22] MEDS: Simvastatin 20 MG TAB PO (20:33)
[2017-10-22] MEDS: Melatonin 3 MG TAB 6 MG PO (20:33)
[2017-10-22] MEDS: Nystatin POWDER 60 GM JAR TP (20:34)
[2017-10-23 01:24] VITALS: BP 142/82; PULSE 55; RESP 22; TEMP 36; O2SAT 97
[2017-10-23 07:10] VITALS: BP 124/77; PULSE 62; RESP 18; TEMP 36.1; O2SAT 96
[2017-10-23] MEDS: Carbidopa 25/Levodopa 100 TAB PO ×3 (08:45→19:49)
[2017-10-23] MEDS: lamoTRIgine 25 MG TAB 50 MG PO (08:45)
[2017-10-23] MEDS: sitaGLIPtin 25 MG TABLET 50 MG PO (08:45)
[2017-10-23] MEDS: Multivitamin TAB 1 TAB PO (08:45)
[2017-10-23] MEDS: Lithium Carbonate 150 MG CAP PO ×2 (08:45→19:49)
[2017-10-23] MEDS: Metoprolol 25 MG TAB PO ×2 (08:46→19:49)
[2017-10-23] MEDS: Folic Acid 1 MG TAB PO (08:46)
[2017-10-23] MEDS: Senna TAB 1 TAB PO (08:46)
[2017-10-23] MEDS: Aspirin E.C. 81 MG TABEC PO (08:46)
--- NOTE | 2017-10-23 12:24 | PDOC.CMACT ---
Care Management Activity Note Pritesh reports his visit at [facility] ([facility] Home Provider, Mesha Crews) went well. He is hopeful to discharge to there. CM provided IFC packet to staff radiologist and then faxed to Alina Macias. CM left VM for Alina regarding DC planning considerations and to find out how Kanu reported the visit went.
--- NOTE | 2017-10-23 12:25 | CMACTNOTE_ITS ---
Care Management Activity Note Pritesh reports his visit at [facility] ([facility] Home Provider, Mesha Crews) went well. He is hopeful to discharge to there. CM provided IFC packet to staff attorney and then faxed to Alina Macias. CM left VM for Alina regarding DC planning considerations and to find out how Kanu reported the visit went.
[2017-10-23 16:05] VITALS: BP 146/82; PULSE 67; RESP 20; TEMP 36.6; O2SAT 97
[2017-10-23] MEDS: Nystatin POWDER 60 GM JAR TP (22:00)
[2017-10-23] MEDS: Melatonin 3 MG TAB 6 MG PO (22:00)
[2017-10-23] MEDS: Simvastatin 20 MG TAB PO (22:00)
[2017-10-23 23:43] VITALS: BP 120/55; PULSE 62; RESP 18; TEMP 36.6; O2SAT 95
[2017-10-24 07:56] VITALS: BP 166/83; PULSE 60; RESP 19; TEMP 36.3; O2SAT 98
[2017-10-24] MEDS: lamoTRIgine 25 MG TAB 50 MG PO (08:45)
[2017-10-24] MEDS: Lithium Carbonate 150 MG CAP PO ×2 (08:45→20:17)
[2017-10-24] MEDS: Folic Acid 1 MG TAB PO (08:46)
[2017-10-24] MEDS: Metoprolol 25 MG TAB PO ×2 (08:46→20:18)
[2017-10-24] MEDS: Multivitamin TAB 1 TAB PO (08:46)
[2017-10-24] MEDS: sitaGLIPtin 25 MG TABLET 50 MG PO (08:46)
[2017-10-24] MEDS: Senna TAB 1 TAB PO (08:46)
[2017-10-24] MEDS: Carbidopa 25/Levodopa 100 TAB PO ×3 (08:46→20:18)
[2017-10-24] MEDS: Aspirin E.C. 81 MG TABEC PO (08:46)
[2017-10-24 15:22] VITALS: BP 136/89; PULSE 62; RESP 18; TEMP 36.8; O2SAT 99
[2017-10-24] MEDS: Simvastatin 20 MG TAB PO (20:17)
[2017-10-24] MEDS: Melatonin 3 MG TAB 6 MG PO (20:18)
[2017-10-24 22:13] VITALS: BP 173/97; PULSE 74; RESP 18; TEMP 36.1; O2SAT 95
[2017-10-24] MEDS: Nystatin POWDER 60 GM JAR TP (22:14)
[2017-10-25 07:12] VITALS: BP 138/79; PULSE 60; RESP 18; TEMP 36.8; O2SAT 99
[2017-10-25] MEDS: sitaGLIPtin 25 MG TABLET 50 MG PO (07:39)
[2017-10-25] MEDS: Carbidopa 25/Levodopa 100 TAB PO ×3 (07:40→20:33)
[2017-10-25] MEDS: Folic Acid 1 MG TAB PO (07:40)
[2017-10-25] MEDS: Lithium Carbonate 150 MG CAP PO ×2 (07:40→20:33)
[2017-10-25] MEDS: lamoTRIgine 25 MG TAB 50 MG PO (07:40)
[2017-10-25] MEDS: Aspirin E.C. 81 MG TABEC PO (07:40)
[2017-10-25] MEDS: Multivitamin TAB 1 TAB PO (07:40)
[2017-10-25] MEDS: Metoprolol 25 MG TAB PO ×2 (07:40→20:33)
[2017-10-25] MEDS: Senna TAB 1 TAB PO (07:40)
[2017-10-25] MEDS: Nystatin POWDER 60 GM JAR TP ×2 (10:00→20:30)
[2017-10-25 15:25] VITALS: BP 124/80; PULSE 69; RESP 20; TEMP 36.4; O2SAT 98
[2017-10-25] MEDS: Simvastatin 20 MG TAB PO (20:33)
[2017-10-25] MEDS: Melatonin 3 MG TAB 6 MG PO (20:33)
[2017-10-26 03:40] VITALS: BP 137/58; PULSE 75; RESP 18; TEMP 36.4; O2SAT 93
[2017-10-26 07:30] VITALS: BP 128/64; PULSE 51; RESP 18; TEMP 36; O2SAT 99
[2017-10-26] MEDS: Metoprolol 25 MG TAB PO ×2 (07:52→19:01)
[2017-10-26] MEDS: Aspirin E.C. 81 MG TABEC PO (07:52)
[2017-10-26] MEDS: Lithium Carbonate 150 MG CAP PO ×2 (07:52→19:01)
[2017-10-26] MEDS: Senna TAB 1 TAB PO (07:52)
[2017-10-26] MEDS: Folic Acid 1 MG TAB PO (07:52)
[2017-10-26] MEDS: Carbidopa 25/Levodopa 100 TAB PO ×3 (07:52→19:01)
[2017-10-26] MEDS: lamoTRIgine 25 MG TAB 50 MG PO (07:52)
[2017-10-26] MEDS: sitaGLIPtin 25 MG TABLET 50 MG PO (07:52)
[2017-10-26] MEDS: Multivitamin TAB 1 TAB PO (07:52)
[2017-10-26] MEDS: Docusate Sodium 100 MG CAP PO (07:52)
[2017-10-26] MEDS: Polyethylene Glycol 3350 17 GM PACKET PO (07:52)
[2017-10-26] MEDS: Simvastatin 20 MG TAB PO (19:04)
[2017-10-26] MEDS: Melatonin 3 MG TAB 6 MG PO (19:04)
[2017-10-26] MEDS: Nystatin POWDER 60 GM JAR TP (19:54)
[2017-10-27 04:42] VITALS: BP 174/69; PULSE 72; RESP 22; TEMP 36.4; O2SAT 95
[2017-10-27 07:30] VITALS: BP 136/70; PULSE 59; RESP 18; TEMP 35.8; O2SAT 98
[2017-10-27] MEDS: Aspirin E.C. 81 MG TABEC PO (08:32)
[2017-10-27] MEDS: Metoprolol 25 MG TAB PO ×2 (08:32→19:43)
[2017-10-27] MEDS: Carbidopa 25/Levodopa 100 TAB PO ×3 (08:32→19:42)
[2017-10-27] MEDS: lamoTRIgine 25 MG TAB 50 MG PO (08:32)
[2017-10-27] MEDS: Senna TAB 1 TAB PO (08:32)
[2017-10-27] MEDS: Docusate Sodium 100 MG CAP PO ×2 (08:33→13:57)
[2017-10-27] MEDS: Lithium Carbonate 150 MG CAP PO ×2 (08:33→19:42)
[2017-10-27] MEDS: Folic Acid 1 MG TAB PO (08:33)
[2017-10-27] MEDS: sitaGLIPtin 25 MG TABLET 50 MG PO (08:33)
[2017-10-27] MEDS: Multivitamin TAB 1 TAB PO (08:33)
[2017-10-27] MEDS: Nystatin POWDER 60 GM JAR TP ×2 (10:37→19:42)
[2017-10-27] MEDS: Milk of Magnesia 30 ML CUP PO (13:57)
[2017-10-27 15:33] VITALS: BP 118/74; PULSE 74; RESP 19; TEMP 36.5; O2SAT 93
[2017-10-27] MEDS: Simvastatin 20 MG TAB PO (19:42)
[2017-10-27] MEDS: Melatonin 3 MG TAB 6 MG PO (19:42)
[2017-10-28 00:15] VITALS: BP 153/80; PULSE 50; RESP 20; TEMP 36.5; O2SAT 95
[2017-10-28 07:24] VITALS: BP 126/70; PULSE 63; RESP 18; TEMP 36.1; O2SAT 99
[2017-10-28] MEDS: Nystatin POWDER 60 GM JAR TP ×2 (08:55→21:32)
[2017-10-28] MEDS: Lithium Carbonate 150 MG CAP PO ×2 (08:56→20:42)
[2017-10-28] MEDS: Docusate Sodium 100 MG CAP PO ×2 (08:56→13:33)
[2017-10-28] MEDS: Carbidopa 25/Levodopa 100 TAB PO ×3 (08:56→20:43)
[2017-10-28] MEDS: Aspirin E.C. 81 MG TABEC PO (08:56)
[2017-10-28] MEDS: lamoTRIgine 25 MG TAB 50 MG PO (08:56)
[2017-10-28] MEDS: Metoprolol 25 MG TAB PO ×2 (08:56→20:43)
[2017-10-28] MEDS: Multivitamin TAB 1 TAB PO (08:56)
[2017-10-28] MEDS: Folic Acid 1 MG TAB PO (08:56)
[2017-10-28] MEDS: Senna TAB 1 TAB PO (08:56)
[2017-10-28] MEDS: sitaGLIPtin 25 MG TABLET 50 MG PO (08:56)
[2017-10-28 16:00] VITALS: BP 128/77; PULSE 60; RESP 18; TEMP 36.7; O2SAT 96
[2017-10-28 20:40] VITALS: PULSE 76
[2017-10-28] MEDS: Melatonin 3 MG TAB 6 MG PO (21:28)
[2017-10-28] MEDS: Simvastatin 20 MG TAB PO (21:28)
[2017-10-28 23:29] VITALS: BP 131/80; PULSE 91; RESP 18; TEMP 36.8; O2SAT 95
[2017-10-29 07:22] VITALS: BP 156/88; PULSE 59; RESP 18; TEMP 35.6; O2SAT 96
[2017-10-29] MEDS: lamoTRIgine 25 MG TAB 50 MG PO (09:19)
[2017-10-29] MEDS: Carbidopa 25/Levodopa 100 TAB PO ×3 (09:19→20:04)
[2017-10-29] MEDS: Lithium Carbonate 150 MG CAP PO ×2 (09:19→20:04)
[2017-10-29] MEDS: sitaGLIPtin 25 MG TABLET 50 MG PO (09:19)
[2017-10-29] MEDS: Multivitamin TAB 1 TAB PO (09:19)
[2017-10-29] MEDS: Senna TAB 1 TAB PO (09:20)
[2017-10-29] MEDS: Folic Acid 1 MG TAB PO (09:20)
[2017-10-29] MEDS: Aspirin E.C. 81 MG TABEC PO (09:20)
[2017-10-29] MEDS: Metoprolol 25 MG TAB PO ×2 (09:20→20:04)
[2017-10-29] MEDS: Nystatin POWDER 60 GM JAR TP ×2 (10:00→20:04)
[2017-10-29 15:11] VITALS: BP 122/78; PULSE 68; RESP 18; TEMP 36.3; O2SAT 97
[2017-10-29] MEDS: Melatonin 3 MG TAB 6 MG PO (20:07)
[2017-10-29] MEDS: Simvastatin 20 MG TAB PO (20:08)
[2017-10-30 02:20] VITALS: PULSE 73; RESP 24
[2017-10-30 02:30] VITALS: BP 167/92; PULSE 78; RESP 20; TEMP 36.3; O2SAT 95
[2017-10-30 07:30] VITALS: BP 118/83; PULSE 63; RESP 18; TEMP 35.8; O2SAT 96
[2017-10-30] MEDS: Multivitamin TAB 1 TAB PO (08:19)
[2017-10-30] MEDS: lamoTRIgine 25 MG TAB 50 MG PO (08:19)
[2017-10-30] MEDS: sitaGLIPtin 25 MG TABLET 50 MG PO (08:19)
[2017-10-30] MEDS: Nystatin POWDER 60 GM JAR TP (08:19)
[2017-10-30] MEDS: Metoprolol 25 MG TAB PO ×2 (08:19→21:32)
[2017-10-30] MEDS: Senna TAB 1 TAB PO (08:19)
[2017-10-30] MEDS: Folic Acid 1 MG TAB PO (08:19)
[2017-10-30] MEDS: Carbidopa 25/Levodopa 100 TAB PO ×3 (08:19→21:32)
[2017-10-30] MEDS: Aspirin E.C. 81 MG TABEC PO (08:19)
[2017-10-30] MEDS: Lithium Carbonate 150 MG CAP PO ×2 (08:19→21:31)
[2017-10-30 15:25] VITALS: BP 154/78; PULSE 60; RESP 20; TEMP 36.2; O2SAT 98
--- NOTE | 2017-10-30 15:33 | PDOC.CMPRO ---
Date of Service: 10/30/17 Time of Service: 15:33 Care Management Progress Note S/O: CM spoke with community CC Salome Mayers she will be here to see Pt between 9:00 am and 10:00 am on Friday11/03/17. [facility] home will plan to take Pt in two weeks from today. There are some accommodations being put into place in the home to meet Pt needs which should be completed by then. Family has reported the visit went well and are willing to accept the Pt. LUCILA met with pt and reviewed plan with him he agrees and is aware CC will visit on Friday. A: 72 year old male admitted to SB2 awaiting [facility] home placement. P: Pritesh will transition to [facility] when home is ready for transfer. No change in status today plan for discharge in two weeks pending home readiness plan. CC will meet with Pt on Friday as scheduled to review plan for D/C.
--- NOTE | 2017-10-30 15:42 | CMPROGNOTE_ITS ---
Date of Service: 10/30/17 Time of Service: 15:33 Care Management Progress Note S/O: CM spoke with community CC Salome Mayers she will be here to see Pt between 9 :00 am and 10:00 am on Friday11/03/17. [facility] home will plan to take Pt in two weeks from today. There are some accommodations being put into place in the home to meet Pt needs which should be completed by then. Family has reported the visit went well and are willing to accept the Pt. LUCILA met with pt and reviewed plan with him he agrees and is aware CC will visit on Friday. A: 72 year old male admitted to SB2 awaiting [facility] home placement. P: Pritesh will transition to [facility] when home is ready for transfer. No change in status today plan for discharge in two weeks pending home readiness plan. CC will meet with Pt on Friday as scheduled to review plan for D/C.
[2017-10-30 21:30] VITALS: BP 131/79; PULSE 72; RESP 16; TEMP 36.3; O2SAT 96
[2017-10-30] MEDS: Simvastatin 20 MG TAB PO (21:32)
[2017-10-30] MEDS: Melatonin 3 MG TAB 6 MG PO (21:32)
[2017-10-31 01:23] VITALS: BP 131/69; PULSE 73; RESP 18; TEMP 36.5; O2SAT 95
[2017-10-31 07:24] VITALS: BP 153/85; PULSE 79; RESP 18; TEMP 36.1; O2SAT 97
[2017-10-31] MEDS: Metoprolol 25 MG TAB PO ×2 (09:13→19:32)
[2017-10-31] MEDS: Multivitamin TAB 1 TAB PO (09:13)
[2017-10-31] MEDS: Aspirin E.C. 81 MG TABEC PO (09:13)
[2017-10-31] MEDS: Lithium Carbonate 150 MG CAP PO ×2 (09:13→19:31)
[2017-10-31] MEDS: lamoTRIgine 25 MG TAB 50 MG PO (09:13)
[2017-10-31] MEDS: Carbidopa 25/Levodopa 100 TAB PO ×3 (09:13→19:31)
[2017-10-31] MEDS: sitaGLIPtin 25 MG TABLET 50 MG PO (09:13)
[2017-10-31] MEDS: Senna TAB 1 TAB PO (09:13)
[2017-10-31] MEDS: Folic Acid 1 MG TAB PO (09:13)
[2017-10-31] MEDS: Nystatin POWDER 60 GM JAR TP ×2 (09:14→19:32)
[2017-10-31 15:28] VITALS: BP 123/76; PULSE 66; RESP 18; TEMP 36.3; O2SAT 97
[2017-10-31] MEDS: Simvastatin 20 MG TAB PO (19:31)
[2017-10-31] MEDS: Melatonin 3 MG TAB 6 MG PO (19:31)
[2017-11-01 07:10] VITALS: BP 132/78; PULSE 60; RESP 20; TEMP 36.1; O2SAT 98
[2017-11-01] MEDS: lamoTRIgine 25 MG TAB 50 MG PO (08:42)
[2017-11-01] MEDS: Carbidopa 25/Levodopa 100 TAB PO ×3 (08:42→20:21)
[2017-11-01] MEDS: Lithium Carbonate 150 MG CAP PO ×2 (08:42→20:20)
[2017-11-01] MEDS: sitaGLIPtin 25 MG TABLET 50 MG PO (08:42)
[2017-11-01] MEDS: Metoprolol 25 MG TAB PO ×2 (08:42→20:21)
[2017-11-01] MEDS: Nystatin POWDER 60 GM JAR TP ×2 (08:43→20:21)
[2017-11-01] MEDS: Aspirin E.C. 81 MG TABEC PO (08:43)
[2017-11-01] MEDS: Multivitamin TAB 1 TAB PO (08:43)
[2017-11-01] MEDS: Folic Acid 1 MG TAB PO (08:43)
[2017-11-01] MEDS: Senna TAB 1 TAB PO (08:43)
[2017-11-01 16:03] VITALS: BP 157/89; PULSE 76; RESP 21; TEMP 36.4; O2SAT 98
[2017-11-01] MEDS: Simvastatin 20 MG TAB PO (20:21)
[2017-11-01] MEDS: Melatonin 3 MG TAB 6 MG PO (20:21)
[2017-11-02 02:00] VITALS: BP 128/74; PULSE 64; RESP 22; TEMP 36.5; O2SAT 94
[2017-11-02 07:15] VITALS: BP 135/76; PULSE 75; RESP 20; TEMP 36.2; O2SAT 94
[2017-11-02] MEDS: Metoprolol 25 MG TAB PO ×2 (08:36→19:48)
[2017-11-02] MEDS: sitaGLIPtin 25 MG TABLET 50 MG PO (08:36)
[2017-11-02] MEDS: Carbidopa 25/Levodopa 100 TAB PO ×3 (08:36→19:48)
[2017-11-02] MEDS: lamoTRIgine 25 MG TAB 50 MG PO (08:36)
[2017-11-02] MEDS: Senna TAB 1 TAB PO (08:37)
[2017-11-02] MEDS: Folic Acid 1 MG TAB PO (08:37)
[2017-11-02] MEDS: Multivitamin TAB 1 TAB PO (08:37)
[2017-11-02] MEDS: Nystatin POWDER 60 GM JAR TP ×2 (08:37→19:48)
[2017-11-02] MEDS: Lithium Carbonate 150 MG CAP PO ×2 (08:37→19:48)
[2017-11-02] MEDS: Aspirin E.C. 81 MG TABEC PO (08:37)
[2017-11-02 15:35] VITALS: BP 134/80; PULSE 61; RESP 20; TEMP 36.6; O2SAT 97
[2017-11-02] MEDS: Simvastatin 20 MG TAB PO (19:48)
[2017-11-02] MEDS: Melatonin 3 MG TAB 6 MG PO (19:48)
[2017-11-02 23:35] VITALS: BP 122/76; PULSE 56; RESP 22; TEMP 36; O2SAT 94
[2017-11-03 07:10] VITALS: BP 140/67; PULSE 55; RESP 18; TEMP 36; O2SAT 98
[2017-11-03] MEDS: Metoprolol 25 MG TAB PO ×2 (09:03→20:55)
[2017-11-03] MEDS: Folic Acid 1 MG TAB PO (09:03)
[2017-11-03] MEDS: Senna TAB 1 TAB PO (09:03)
[2017-11-03] MEDS: sitaGLIPtin 25 MG TABLET 50 MG PO (09:03)
[2017-11-03] MEDS: Aspirin E.C. 81 MG TABEC PO (09:03)
[2017-11-03] MEDS: Lithium Carbonate 150 MG CAP PO ×2 (09:03→20:55)
[2017-11-03] MEDS: lamoTRIgine 25 MG TAB 50 MG PO (09:03)
[2017-11-03] MEDS: Carbidopa 25/Levodopa 100 TAB PO ×3 (09:03→20:55)
[2017-11-03] MEDS: Multivitamin TAB 1 TAB PO (09:03)
[2017-11-03] MEDS: Nystatin POWDER 60 GM JAR TP ×2 (09:04→20:54)
[2017-11-03 15:15] VITALS: BP 152/97; PULSE 68; RESP 20; TEMP 37.4; O2SAT 96
--- NOTE | 2017-11-03 18:08 | PDOC.CMPRO ---
Date of Service: 11/03/17 Time of Service: 18:09 Care Management Progress Note S/O: CM met with patient in the room he is upset CC did not visit today as scheduled. CM contacted Alina Macias director of [facility] and reviewed events. She states that there was an emergency and provider could not make it. Pt has been accepted at correction the home is making some arrangements to better accommodate pt. Pt could possible transition this week depending on when the repairs are complete. CC and Director will plan to meet with pt at the end of the week, A: 72 year old male admitted to SB2 awaiting placement at [facility] home P: CC will meet with pt this week CM to follow up on Friday. Anticipate for pt to transition to [facility] home over the next one to two weeks.
--- NOTE | 2017-11-03 18:14 | CMPROGNOTE_ITS ---
Date of Service: 11/03/17 Time of Service: 18:09 Care Management Progress Note S/O: CM met with patient in the room he is upset CC did not visit today as scheduled. CM contacted Alina Macias director of [facility] and reviewed events. She states that there was an emergency and provider could not make it. Pt has been accepted at custodial the home is making some arrangements to better accommodate pt. Pt could possible transition this week depending on when the repairs are complete. CC and Director will plan to meet with pt at the end of the week, A: 72 year old male admitted to SB2 awaiting placement at [facility] home P: CC will meet with pt this week CM to follow up on Friday. Anticipate for pt to transition to [facility] home over the next one to two weeks.
[2017-11-03] MEDS: Simvastatin 20 MG TAB PO (20:55)
[2017-11-03] MEDS: Melatonin 3 MG TAB 6 MG PO (20:55)
[2017-11-03 20:57] VITALS: BP 130/83; PULSE 71
[2017-11-03 22:40] VITALS: BP 127/75; PULSE 68; RESP 20; TEMP 36.6; O2SAT 95
[2017-11-04 07:15] VITALS: BP 151/96; PULSE 58; RESP 19; TEMP 35.5; O2SAT 96
[2017-11-04] MEDS: Folic Acid 1 MG TAB PO (07:33)
[2017-11-04] MEDS: Senna TAB 1 TAB PO (07:33)
[2017-11-04] MEDS: sitaGLIPtin 25 MG TABLET 50 MG PO (07:33)
[2017-11-04] MEDS: Metoprolol 25 MG TAB PO ×2 (07:33→20:52)
[2017-11-04] MEDS: Aspirin E.C. 81 MG TABEC PO (07:33)
[2017-11-04] MEDS: Multivitamin TAB 1 TAB PO (07:33)
[2017-11-04] MEDS: Nystatin POWDER 60 GM JAR TP ×2 (07:33→20:51)
[2017-11-04] MEDS: lamoTRIgine 25 MG TAB 50 MG PO (07:34)
[2017-11-04] MEDS: Carbidopa 25/Levodopa 100 TAB PO ×3 (07:34→20:51)
[2017-11-04] MEDS: Lithium Carbonate 150 MG CAP PO ×2 (07:34→20:51)
[2017-11-04 15:29] VITALS: BP 153/79; PULSE 62; RESP 18; TEMP 36.8; O2SAT 99
[2017-11-04] MEDS: Simvastatin 20 MG TAB PO (20:51)
[2017-11-04] MEDS: Docusate Sodium 100 MG CAP PO (20:51)
[2017-11-04] MEDS: Melatonin 3 MG TAB 6 MG PO (20:52)
[2017-11-04 21:05] VITALS: BP 132/64; PULSE 74; RESP 17; TEMP 36; O2SAT 93
--- NOTE | 2017-11-04 21:09 | NUR.NOTE ---
pt threw powder across the room when this nurse reminded the pt that he needed to get in his groin folds and rub it in. pt got agitated and threw the powder across the room.
[2017-11-05 07:20] VITALS: BP 152/82; PULSE 62; RESP 18; TEMP 36.1; O2SAT 96
[2017-11-05] MEDS: sitaGLIPtin 25 MG TABLET 50 MG PO (09:07)
[2017-11-05] MEDS: Nystatin POWDER 60 GM JAR TP ×2 (09:07→20:47)
[2017-11-05] MEDS: Carbidopa 25/Levodopa 100 TAB PO ×3 (09:08→20:47)
[2017-11-05] MEDS: Multivitamin TAB 1 TAB PO (09:08)
[2017-11-05] MEDS: Senna TAB 1 TAB PO (09:08)
[2017-11-05] MEDS: Aspirin E.C. 81 MG TABEC PO (09:08)
[2017-11-05] MEDS: Docusate Sodium 100 MG CAP PO (09:08)
[2017-11-05] MEDS: lamoTRIgine 25 MG TAB 50 MG PO (09:08)
[2017-11-05] MEDS: Metoprolol 25 MG TAB PO ×2 (09:08→20:47)
[2017-11-05] MEDS: Folic Acid 1 MG TAB PO (09:08)
[2017-11-05] MEDS: Lithium Carbonate 150 MG CAP PO ×2 (09:08→20:46)
--- NOTE | 2017-11-05 16:16 | PDOC.CMPRO ---
Date of Service: 11/05/17 Time of Service: 16:16 Care Management Progress Note S/O: CM met with Pt and his Community Case Manger Modesto Mayers. Pt is to be discharged on Friday to adult family nursing home [facility] . Pt agrees and has accepted the placement. Pt will have a new primary care provider CC will contact CM and provide information to complete and scheduled follow up appointment which needs to be in one week after discharge per agency. Pt states he is having some issues with voiding states he is having to run the water in the bathroom to void. Pt has an history of prostate ca, and incontinence. [facility] updated CCRN with concern and requested follow up with Pt. CM will contact [facility] and request follow up appointment for after discharge which is patients regular urologist in the community. CM contacted [facility] and obtained the release of records from will complete with Pt once new PCP identified through the [facility]. Pt appeared positive about moving to the new [facility] home he would like to attend a new adult day service in [place], this was reviewed with [facility] which she has agreed to identify the closest one for Pt to attend. A: 72 year old male with dementia and bipolar disorder admitted to [facility] awaiting placement. P: Pritesh will discharge on Friday11/10/17 with adult family caregiver Kanu see contact above. Pritesh will be transported home by private vehicle at time of discharge. [facility] will contact CM with new primary care provider information and CM will complete the release of records form with patent. [facility] reports she has contacted DPOA and provided update. CM will also provide update to DPOA (sister) with the plan for discharge. CM will contact Urology in [facility] and request follow up appointment. Pritesh will need all paper scripts for his medications for caregiver to fill at a local pharmacy. Discharge information to be reviewed with caregivers including any follow up appointment and plan of care after discharge.
[2017-11-05 16:21] VITALS: BP 123/83; PULSE 65; RESP 18; TEMP 36.2; O2SAT 96
--- NOTE | 2017-11-05 16:32 | CMPROGNOTE_ITS ---
Date of Service: 11/05/17 Time of Service: 16:16 Care Management Progress Note S/O: CM met with Pt and his Community Case Manger Modesto Mayers. Pt is to be discharged on Friday to adult family snf [facility] . Pt agrees and has accepted the placement. Pt will have a new primary care provider CC will contact CM and provide information to complete and scheduled follow up appointment which needs to be in one week after discharge per agency. Pt states he is having some issues with voiding states he is having to run the water in the bathroom to void. Pt has an history of prostate ca, and incontinence. [facility] updated CCRN with concern and requested follow up with Pt. CM will contact [facility] and request follow up appointment for after discharge which is patients regular urologist in the community. CM contacted [facility] and obtained the release of records from will complete with Pt once new PCP identified through the [facility]. Pt appeared positive about moving to the new [facility] home he would like to attend a new adult day service in [place], this was reviewed with [facility] which she has agreed to identify the closest one for Pt to attend. A: 72 year old male with dementia and bipolar disorder admitted to [facility] awaiting placement. P: Pritesh will discharge on Friday11/10/17 with adult family caregiver Kanu see contact above. Pritesh will be transported home by private vehicle at time of discharge. [facility] will contact CM with new primary care provider information and CM will complete the release of records form with patent. [facility] reports she has contacted DPOA and provided update. CM will also provide update to DPOA (sister ) with the plan for discharge. CM will contact Urology in [facility] and request follow up appointment. Pritesh will need all paper scripts for his medications for caregiver to fill at a local pharmacy. Discharge information to be reviewed with caregivers including any follow up appointment and plan of care after discharge.
[2017-11-05] MEDS: Simvastatin 20 MG TAB PO (20:46)
[2017-11-05] MEDS: Melatonin 3 MG TAB 6 MG PO (20:46)
[2017-11-06 01:25] VITALS: BP 110/64; PULSE 57; RESP 20; TEMP 36.1; O2SAT 96
[2017-11-06 07:30] VITALS: BP 130/74; PULSE 76; RESP 20; TEMP 36.3; O2SAT 95
[2017-11-06] MEDS: Nystatin POWDER 60 GM JAR TP ×2 (09:02→20:27)
[2017-11-06] MEDS: Folic Acid 1 MG TAB PO (09:03)
[2017-11-06] MEDS: Carbidopa 25/Levodopa 100 TAB PO ×3 (09:03→20:19)
[2017-11-06] MEDS: lamoTRIgine 25 MG TAB 50 MG PO (09:03)
[2017-11-06] MEDS: sitaGLIPtin 25 MG TABLET 50 MG PO (09:03)
[2017-11-06] MEDS: Lithium Carbonate 150 MG CAP PO ×2 (09:03→20:19)
[2017-11-06] MEDS: Metoprolol 25 MG TAB PO ×2 (09:03→20:19)
[2017-11-06] MEDS: Senna TAB 1 TAB PO (09:03)
[2017-11-06] MEDS: Multivitamin TAB 1 TAB PO (09:03)
[2017-11-06] MEDS: Aspirin E.C. 81 MG TABEC PO (09:04)
[2017-11-06] MEDS: Docusate Sodium 100 MG CAP PO (13:36)
--- NOTE | 2017-11-06 15:32 | PDOC.CMACT ---
Date of Service: 11/06/17 Time of Service: 15:32 Care Management Activity Note Pritesh was able to meet with sr community manager Salome Mayers this week he was told that he will be discharged on Friday to his new adult family home. Pritesh was visited by his friend from out of the area and he was able to obtain a 4WW from his friend. This will allow him to be more mobile around his room. Pritesh has been doing his crosswords. Pritesh is doing well with a scheduled for the day on the white board and using the calender to put important dates. Pritesh would like a map so he can review the roads to his new home. Pritesh enjoys company and looks forward to a volunteer visit. Pritesh is taking with his sister over the phone twice a day and enjoys his conversations with her. Pritesh offered activities from [employer] including coloring and crossword puzzles he would like a map and some magazines related to cars.
--- NOTE | 2017-11-06 15:39 | CMACTNOTE_ITS ---
Date of Service: 11/06/17 Time of Service: 15:32 Care Management Activity Note Pritesh was able to meet with community program assistant Salome Mayers this week he was told that he will be discharged on Friday to his new adult family home. Pritesh was visited by his friend from out of the area and he was able to obtain a 4WW from his friend. This will allow him to be more mobile around his room. Pritesh has been doing his crosswords. Pritesh is doing well with a scheduled for the day on the white board and using the calender to put important dates. Pritesh would like a map so he can review the roads to his new home. Pritesh enjoys company and looks forward to a volunteer visit. Pritesh is taking with his sister over the phone twice a day and enjoys his conversations with her. Pritesh offered activities from [employer] including coloring and crossword puzzles he would like a map and some magazines related to cars.
[2017-11-06 16:15] VITALS: BP 160/82; PULSE 58; RESP 20; TEMP 36.7; O2SAT 98
[2017-11-06] MEDS: Melatonin 3 MG TAB 6 MG PO (20:19)
[2017-11-06] MEDS: Simvastatin 20 MG TAB PO (20:19)
[2017-11-07 06:25] VITALS: BP 134/74; PULSE 54; RESP 20; TEMP 36.7; O2SAT 97
[2017-11-07 07:45] VITALS: BP 121/71; PULSE 66; RESP 20; TEMP 35.9; O2SAT 94
[2017-11-07] MEDS: Lithium Carbonate 150 MG CAP PO ×2 (09:01→20:09)
[2017-11-07] MEDS: Carbidopa 25/Levodopa 100 TAB PO ×3 (09:01→20:09)
[2017-11-07] MEDS: Nystatin POWDER 60 GM JAR TP ×2 (09:01→20:09)
[2017-11-07] MEDS: lamoTRIgine 25 MG TAB 50 MG PO (09:01)
[2017-11-07] MEDS: Aspirin E.C. 81 MG TABEC PO (09:01)
[2017-11-07] MEDS: Senna TAB 1 TAB PO (09:01)
[2017-11-07] MEDS: sitaGLIPtin 25 MG TABLET 50 MG PO (09:01)
[2017-11-07] MEDS: Metoprolol 25 MG TAB PO ×2 (09:01→20:09)
[2017-11-07] MEDS: Folic Acid 1 MG TAB PO (09:01)
[2017-11-07] MEDS: Multivitamin TAB 1 TAB PO (09:01)
[2017-11-07 15:30] VITALS: BP 113/65; PULSE 57; RESP 19; TEMP 36.3; O2SAT 95
[2017-11-07] MEDS: Simvastatin 20 MG TAB PO (20:09)
[2017-11-07] MEDS: Melatonin 3 MG TAB 6 MG PO (20:09)
[2017-11-07 23:01] VITALS: BP 119/59; PULSE 58; RESP 16; TEMP 36.3; O2SAT 96
[2017-11-08 07:10] VITALS: BP 127/79; PULSE 60; RESP 19; TEMP 35.5; O2SAT 95
[2017-11-08] MEDS: Lithium Carbonate 150 MG CAP PO ×2 (09:30→20:25)
[2017-11-08] MEDS: Senna TAB 1 TAB PO (09:30)
[2017-11-08] MEDS: Aspirin E.C. 81 MG TABEC PO (09:30)
[2017-11-08] MEDS: Metoprolol 25 MG TAB PO ×2 (09:30→20:26)
[2017-11-08] MEDS: Carbidopa 25/Levodopa 100 TAB PO ×3 (09:30→20:26)
[2017-11-08] MEDS: Folic Acid 1 MG TAB PO (09:30)
[2017-11-08] MEDS: Multivitamin TAB 1 TAB PO (09:30)
[2017-11-08] MEDS: lamoTRIgine 25 MG TAB 50 MG PO (09:30)
[2017-11-08] MEDS: Nystatin POWDER 60 GM JAR TP ×2 (09:31→20:26)
[2017-11-08] MEDS: sitaGLIPtin 25 MG TABLET 50 MG PO (09:31)
[2017-11-08 15:47] VITALS: BP 155/89; PULSE 68; RESP 20; TEMP 36.6; O2SAT 98
[2017-11-08] MEDS: Simvastatin 20 MG TAB PO (20:25)
[2017-11-08] MEDS: Melatonin 3 MG TAB 6 MG PO (20:25)
[2017-11-08 22:25] VITALS: BP 148/90; PULSE 62; RESP 16; TEMP 36; O2SAT 98
[2017-11-09 07:40] VITALS: BP 160/78; PULSE 65; RESP 19; TEMP 36.2; O2SAT 99
[2017-11-09] MEDS: Metoprolol 25 MG TAB PO ×2 (09:43→20:00)
[2017-11-09] MEDS: Aspirin E.C. 81 MG TABEC PO (09:43)
[2017-11-09] MEDS: Lithium Carbonate 150 MG CAP PO ×2 (09:43→20:00)
[2017-11-09] MEDS: sitaGLIPtin 25 MG TABLET 50 MG PO (09:43)
[2017-11-09] MEDS: Carbidopa 25/Levodopa 100 TAB PO ×3 (09:43→20:00)
[2017-11-09] MEDS: Senna TAB 1 TAB PO (09:43)
[2017-11-09] MEDS: Docusate Sodium 100 MG CAP PO (09:43)
[2017-11-09] MEDS: Folic Acid 1 MG TAB PO (09:43)
[2017-11-09] MEDS: lamoTRIgine 25 MG TAB 50 MG PO (09:43)
[2017-11-09] MEDS: Multivitamin TAB 1 TAB PO (09:43)
[2017-11-09] MEDS: Nystatin POWDER 60 GM JAR TP ×2 (09:44→20:01)
[2017-11-09 16:39] VITALS: BP 158/90; PULSE 63; RESP 20; TEMP 36.8; O2SAT 97
[2017-11-09] MEDS: Simvastatin 20 MG TAB PO (20:00)
[2017-11-09] MEDS: Melatonin 3 MG TAB 6 MG PO (20:00)
[2017-11-10 07:25] VITALS: BP 136/75; PULSE 54; RESP 18; TEMP 35.7; O2SAT 100
[2017-11-10] MEDS: Senna TAB 1 TAB PO (08:24)
[2017-11-10] MEDS: lamoTRIgine 25 MG TAB 50 MG PO (08:24)
[2017-11-10] MEDS: Lithium Carbonate 150 MG CAP PO (08:24)
[2017-11-10] MEDS: Metoprolol 25 MG TAB PO (08:24)
[2017-11-10] MEDS: Nystatin POWDER 60 GM JAR TP (08:24)
[2017-11-10] MEDS: Carbidopa 25/Levodopa 100 TAB PO ×2 (08:24→13:21)
[2017-11-10] MEDS: Aspirin E.C. 81 MG TABEC PO (08:24)
[2017-11-10] MEDS: Multivitamin TAB 1 TAB PO (08:24)
[2017-11-10] MEDS: Folic Acid 1 MG TAB PO (08:24)
[2017-11-10] MEDS: sitaGLIPtin 25 MG TABLET 50 MG PO (08:25)
--- NOTE | 2017-11-10 09:36 | PDOC.CMDIS ---
Date of Service: 11/10/17 Time of Service: 09:36 LACE Index Scoring Tool - Questions: Length of Stay (in days): 14 or more Acuity (Admit via E.D.?): Yes Comorbidities: Diabetes w/o Complication, Dementia E.D. Visits: 1 - Answers: Total Score: 16 Risk of Readmission: High Risk Care Management Discharge Reason for Hospitalization: Admitted on 10/01/17 for AMS and weaknes; transition to SB2 awaiting AFC placement Discharge Plan: Discharge home to adult family skilled nursing with [facility]u [facility] , with new home health services through [facility] fax number is [phone] for orders. New primary care provider will be [facility] Dr. Ray Whitley [phone] scheduled for 11/19/17 at 11:00 am. Pt will have all prescriptions sent to [facility] in [place], [place]. Transportation to be provided by Kanu Shah by private car at 1:00 pm this afternoon. CM faxed referral to home health, and new primary care including request for records to current primary care and new primary care. Patient/Family Education Needs: Discharge education, follow up plan of care and limitations. CM reviewed follow up plan with caregiver and porter sample case. Services Needed at Discharge: Home Health Care Services
--- NOTE | 2017-11-10 09:44 | CMDISCH_ITS ---
Date of Service: 11/10/17 Time of Service: 09:36 LACE Index Scoring Tool - Questions: Length of Stay (in days): 14 or more Acuity (Admit via E.D.?): Yes Comorbidities: Diabetes w/o Complication, Dementia E.D. Visits: 1 - Answers: Total Score: 16 Risk of Readmission: High Risk Care Management Discharge Reason for Hospitalization: Admitted on 10/01/17 for AMS and weaknes; transition to SB2 awaiting AFC placement Discharge Plan: Discharge home to adult family intermediate with [facility]u Shah [phone], with new home health services through [facility] fax number is [phone] for orders. New primary care provider will be [facility] Dr. Ray Whitley [phone] scheduled for 11/19/17 at 11:00 am. Pt will have all prescriptions sent to [facility] in [place], [place]. Transportation to be provided by Kanu Shah by private car at 1:00 pm this afternoon. CM faxed referral to home health, and new primary care including request for records to current primary care and new primary care. Patient/Family Education Needs: Discharge education, follow up plan of care and limitations. CM reviewed follow up plan with caregiver and family service caseworker. Services Needed at Discharge: Home Health Care Services
--- NOTE | 2017-11-10 10:14 | PDOC.DISCH_ITS ---
Discharge - Discharge Orders Referrals: Ray Whitley [OSTEOPATHIC DOCTOR] - 11/19/17 11:00 am - Discharge Plan Disposition: COMMUNITY CARE FACILITY Condition: Good Diet:: Carb Counting Equipment/Supplies:: No Equipment Needed Activity:: Activity as Tolerated - Instructions Micromedex Instructions: Parkinson Disease (DC) Additional Instructions: Use walker at all times for gait stability and safety while ambulating Wash lower abdomen and groins twice daily with warm soapy water rinse well pat dry completely then apply nystatin powder. Home health services senior care for routine nursing care medication oversight wound evaluation, physical therapy to evaluate home. Diabetes has been well managed with diet alone.
--- NOTE | 2017-11-10 10:25 | PDOC.HHF2F ---
Date of Service: 11/10/17 1. Encounter Date and Reason I certify that JOSE CARLOS MARIN was seen by Trini Mccormick on 11/10/17 and that I had a [id number] encounter with this patient that meets the physician face to face encounter requirements. 2. Clinical Findings Supporting Skilled Need and Homebound Status I certify that home health services are medically necessary, include either intermittent fdc and/or physical/speech therapy, and that this patient is homebound in that absences from the home require considerable and taxing effort and are infrequent or of short duration, or are attributable to the need to receive medical care. [X] (a) Attached documentation from encounter provides clinical findings supporting skilled need and homebound status (including what assistance patient requires to leave the home). The encounter with the patient was in whole, or in part, for the following medical condition, which is the primary reason for home health care: ALTERED MENTAL STATUS Senior Care: fdc for routine nursing to oversee patients medical condition, medication oversight, training of care givers Physical Therapy: need to establish home maintenance program, home safety assessment, evaluate ADL/IADL/self care Homebound: patient is unable to leave home unassisted d/t cognitive impairment 3. Certification and Authentication I certify that I composed the above information based on my clinical judgement relating to this patient's medical condition and, if applicable, clinical findings communicated to me by the NPP or inpatient physician who performed the Home Health Referral. All further orders will be obtained through Dr Cornelius Rivas (Community Based Physician - PCP)
--- NOTE | 2017-11-10 10:29 | PDOC.HHF2F_ITS ---
Date of Service: 11/10/17 1. Encounter Date and Reason I certify that JOSE CARLOS MARIN was seen by Trini Mccormick on 11/10/17 and that I had a [id number] encounter with this patient that meets the physician face to face encounter requirements. 2. Clinical Findings Supporting Skilled Need and Homebound Status I certify that home health services are medically necessary, include either intermittent fci and/or physical/speech therapy, and that this patient is homebound in that absences from the home require considerable and taxing effort and are infrequent or of short duration, or are attributable to the need to receive medical care. [X] (a) Attached documentation from encounter provides clinical findings supporting skilled need and homebound status (including what assistance patient requires to leave the home). The encounter with the patient was in whole, or in part, for the following medical condition, which is the primary reason for home health care: ALTERED MENTAL STATUS Assisted: fci for routine nursing to oversee patients medical condition, medication oversight, training of care givers Physical Therapy: need to establish home maintenance program, home safety assessment, evaluate ADL/IADL/self care Homebound: patient is unable to leave home unassisted d/t cognitive impairment 3. Certification and Authentication I certify that I composed the above information based on my clinical judgement relating to this patient's medical condition and, if applicable, clinical findings communicated to me by the NPP or inpatient physician who performed the Home Health Referral. All further orders will be obtained through Dr Cornelius Rivas (Community Based Physician - PCP)
--- NOTE | 2017-11-10 11:02 | PDOC.DCSUM ---
Date of Service: 11/10/17 Date of discharge November 10, 2017 Discharge diagnosis: Diabetes mellitus type 2 controlled, Parkinson's, dementia, bipolar disorder. History of present illness and hospital course: This is a 72-year-old male patient with a past medical history significant for dementia bipolar disorder diabetes and COPD who presented to the emergency department for evaluation of increasing weakness poor ambulation with frequent falls urinary incontinence and behavioral changes including outbursts and uncontrolled behavior. His shelter case manager had been attempting to find a different placement for him as his caregivers were no longer able to care for him in their setting, he was admitted to [facility] for further evaluation and workup. He was started on medication for parkinsonian features which he did respond and improve. He was started on Lamictal as he had developed lithium toxicity with a prolonged QT, lithium was reintroduce which he has been tolerating well. Gait has been steady ambulating with a walker. Diabetes has been managed with diet and Januvia. He has a fungal rash under his pannus and bilateral groins which is improving with nystatin powder. He has been eating and drinking regular consistency occasionally has difficulty swallowing whole pills but has been able to take after an attempt, he has not required any pills to be crushed he has not had any choking. Medically he has been stable he has had no fevers chills complaints of pain. 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 He is occasionally incontinent of bowel and bladder and does wear depends. Case management has been following and has obtained housing with an adult family detention which she is scheduled to be discharged to this afternoon. Condition at discharge: Temp 95.7 pulse 54 respiratory rate 18 O2 sat 100% on room air blood pressure 136/75 General skin is pink warm dry well perfused she is in no acute distress Head is atraumatic normocephalic. Oral mucosa is pink moist there is no exudate neck is supple Cardiovascular regular rate and rhythm there is no murmurs Lungs are clear bilaterally respirations even and unlabored Abdomen is obese soft nontender with positive bowel sounds Skin: Fungal rash in his groins bilaterally and abdominal fold, reportedly improving Psychiatric: Mood affect normal Neuro: Alert and oriented to person place and situation, no focal deficits, he is a poor historian Most recent lab data: Sodium 143 potassium 4.2 chloride 110 CO2 26 anion gap 7 BUN 33 creatinine 1.23 GFR 57 glucose 136 calcium 9.0 lithium 0.48 white count 7.8 hemoglobin 12.3 hematocrit 39.2 platelet count is 210 Medications at discharge: Continue as previously scheduled Acetaminophen 650 mg every 6 hours if needed for pain Aspirin 81 mg daily Vitamin D3 2000 units daily Melatonin 6 mg at bedtime Metoprolol tartrate 25 mg twice daily Sennosides 8.6 mg daily Simvastatin 20 mg at bedtime Polyethylene glycol 17 g daily if needed for constipation New medications: Januvia 25 mg daily Lamictal 50 mg daily Changed: [place] 150 mg twice daily Discontinued: Seroquel Potassium chloride Lasix Glipizide
--- NOTE | 2017-11-10 11:32 | PDOC.DCSUM_ITS ---
Date of Service: 11/10/17 Date of discharge November 10, 2017 Discharge diagnosis: Diabetes mellitus type 2 controlled, Parkinson's, dementia , bipolar disorder. History of present illness and hospital course: This is a 72-year-old male patient with a past medical history significant for dementia bipolar disorder diabetes and COPD who presented to the emergency department for evaluation of increasing weakness poor ambulation with frequent falls urinary incontinence and behavioral changes including outbursts and uncontrolled behavior. His residential case manager had been attempting to find a different placement for him as his caregivers were no longer able to care for him in their setting, he was admitted to [facility] for further evaluation and workup. He was started on medication for parkinsonian features which he did respond and improve. He was started on Lamictal as he had developed lithium toxicity with a prolonged QT, lithium was reintroduce which he has been tolerating well. Gait has been steady ambulating with a walker. Diabetes has been managed with diet and Januvia. He has a fungal rash under his pannus and bilateral groins which is improving with nystatin powder. He has been eating and drinking regular consistency occasionally has difficulty swallowing whole pills but has been able to take after an attempt, he has not required any pills to be crushed he has not had any choking. Medically he has been stable he has had no fevers chills complaints of pain. 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 He is occasionally incontinent of bowel and bladder and does wear depends. Case management has been following and has obtained housing with an adult family prison which she is scheduled to be discharged to this afternoon. Condition at discharge: Temp 95.7 pulse 54 respiratory rate 18 O2 sat 100% on room air blood pressure 136/75 General skin is pink warm dry well perfused she is in no acute distress Head is atraumatic normocephalic. Oral mucosa is pink moist there is no exudate neck is supple Cardiovascular regular rate and rhythm there is no murmurs Lungs are clear bilaterally respirations even and unlabored Abdomen is obese soft nontender with positive bowel sounds Skin: Fungal rash in his groins bilaterally and abdominal fold, reportedly improving Psychiatric: Mood affect normal Neuro: Alert and oriented to person place and situation, no focal deficits, he is a poor historian Most recent lab data: Sodium 143 potassium 4.2 chloride 110 CO2 26 anion gap 7 BUN 33 creatinine 1.23 GFR 57 glucose 136 calcium 9.0 lithium 0.48 white count 7.8 hemoglobin 12.3 hematocrit 39.2 platelet count is 210 Medications at discharge: Continue as previously scheduled Acetaminophen 650 mg every 6 hours if needed for pain Aspirin 81 mg daily Vitamin D3 2000 units daily Melatonin 6 mg at bedtime Metoprolol tartrate 25 mg twice daily Sennosides 8.6 mg daily Simvastatin 20 mg at bedtime Polyethylene glycol 17 g daily if needed for constipation New medications: Januvia 25 mg daily Lamictal 50 mg daily Changed: [place] 150 mg twice daily Discontinued: Seroquel Potassium chloride Lasix Glipizide
== END 2017-11-10 13:25 | disposition designated cancer center or children's hospital (05) | DRG 945 ==
PROVIDERS: Family Medicine; Internal Medicine; Admitting Provider Internal Medicine; PCP Nurse Practitioner Family; Visit Provider Internal Medicine
DX: R41.82 Altered mental status, unspecified (principal); F02.81 Dementia in other diseases classified elsewhere, unspecified severity, with behavioral disturbance; G20 Parkinson's disease; E11.22 Type 2 diabetes mellitus with diabetic chronic kidney disease; R53.1 Weakness; K59.00 Constipation, unspecified; F31.9 Bipolar disorder, unspecified; E66.9 Obesity, unspecified; B35.6 Tinea cruris; R32 Unspecified urinary incontinence; J44.9 Chronic obstructive pulmonary disease, unspecified; Z99.81 Dependence on supplemental oxygen; N18.9 Chronic kidney disease, unspecified; I12.9 Hypertensive chronic kidney disease with stage 1 through stage 4 chronic kidney disease, or unspecified chronic kidney disease; E53.8 Deficiency of other specified B group vitamins; F20.9 Schizophrenia, unspecified
CPT/HCPCS: 36415; 80048; 80053; 85027; 87081; 97110; 97163; 97165; 97530; 97535; 99309; 99316; 80178; 82607; 82746; 83735; 84439; 84443; 93005; 93010; 99305; 99308